=== PATIENT | female | born 1985 | race Caucasian/White ===

== ENCOUNTER 2021-03-19 11:00 | Emergency (ER) | payer OTHER ==
--- OUTSIDE RECORDS SUMMARY | 2021-03-19 11:03 | XMS REPORT | Continuity of Care Document ---
:1985 Author Organization [facility] t Address [address] [place] [address] Care Team Providers Name Role Phone Doctor Unassigned, Name Attending Clinician Unavailable Easton Barnes DO Attending Clinician Tucker PRESCOTT Attending Clinician Problems This patient has no known problems. Allergies, Adverse Reactions, Alerts This patient has no known allergies or adverse reactions. Medications This patient has no known medications. Procedures This patient has no known procedures. Encounters Start End Encounter Admission Attending Care Care Encounter Source Date/Time Date/Time Type Type Clinicians Facility Department ID 2021-03-19 2021-03-19 Refill Doctor [facility] [id number] [id number] 00:00:00 00:00:00 Unassigned, Health [id number] [place] [id number] Professio [phone] nal 0[address] 2021-03-09 2021-03-09 Refill Doctor [facility] [id number] 00:00:00 00:00:00 Unassigned, Health [id number] [place] [id number] Professio [phone] nal 044 [address] 2021-02-08 2021-02-08 Refill Doctor [facility] [id number] 00:00:00 00:00:00 Unassigned, Health [id number] [place] [id number] Professio [phone] nal 044 [address] 2021-01-11 2021-01-11 Refill Doctor [facility] [id number] 00:00:00 00:00:00 Unassigned, [facility] [id number] [place] [id number] Professio [phone] nal 044 [address] 2020-12-18 2020-12-18 Patient Cameron [facility] [id number] 00:00:00 00:00:00 Outreach [facility] [id number] [facility] [id number] PAVILLION [phone] 2020-12-14 2020-12-14 Office Tucker [facility] [id number] 12:51:14 13:06:14 Visit [facility] [id number] [place] [id number] Professio [phone] nal 044 [address] One Results This patient has no known results.
[2021-03-19 13:27] LABS: Urine Blood 2+ (Negative); Urine Glucose Negative (Negative); Urine Protein 2+ (Negative); Urine Specific Gravity >=1.030 (1.005-1.030); Urine pH 5.5 (5.0-7.0)
[2021-03-19 13:50] LABS: Absolute Lymphocytes (CBC) 2.6 K/uL (0.7-4.9); Basophils % 0.5 % (0-1.3); Hematocrit 47.7 % (36.0-45.0); Lymphocytes % 16.2 % (15.3-44.8); MPV 7.5 fL (7.6-11.3); RBC Red Blood Cell Count 5.16 M/uL (3.86-4.86)
[2021-03-19] MEDS ORDERED: NA CHLORIDE 0.9% 1,000 ML ONE (13:50)
[2021-03-19] MEDS ORDERED: ONDANSETRON 4 MG/2 ML VIAL ONE (13:50)
[2021-03-19] MEDS ORDERED: KETOROLAC 30 MG/ML INJ ONE (13:50)
[2021-03-19 14:00] LABS: Urine Specific Gravity/Preg >1.030 (1.005-1.030)
[2021-03-19 14:07] LABS: Albumin 4.4 g/dL (3.4-5.0); Bilirubin Direct 0.2 mg/dL (0-0.2); Bilirubin Total 0.6 mg/dL (0.2-1.0); Potassium 3.7 mmol/L (3.5-5.1); Protein, Total 9.3 g/dL (6.4-8.2)
--- NOTE | 2021-03-19 14:14 | RAD REPORT ---
EXAM DESCRIPTION: CTAbdomen Pelvis W Contrast - 03/19/2021 2:00 pm CLINICAL HISTORY: Abdominal pain. ABD PAIN COMPARISON: No comparisons TECHNIQUE: Biphasic CT imaging of the abdomen and pelvis was performed with 100 ml non-ionic IV cont rast. All CT scans are performed using dose optimization technique as appropriate and may include automated exposure control or mA/KV adjustment according to patient size. FINDINGS: The lung bases are clear.Cholecystectomy. The liver, spleen, pancreas, adrenal glands and kidneys are within normal limits. No bowel obstruction, free air, free fluid or abscess. Appendectomy. No evidence of significant lym phadenopathy. No suspicious bony findings. IMPRESSION: No acute intra-abdominal or pelvic finding.
[2021-03-19] MEDS ORDERED: CIPROFLOXACIN HCL 500 MG TAB ONE (16:04)
[2021-03-19] MEDS ORDERED: metroNIDAZOLE 500 MG TABLET ONE (16:04)
[2021-03-19] MEDS ORDERED: PANTOPRAZOLE 40 MG INJ ONE (16:05)
[2021-03-19] MEDS ORDERED: FENTANYL CITR 100 MCG/2 ML ONE (16:05)
--- NOTE | 2021-03-19 16:10 | ER ---
Nurse's Notes [facility] Name: Abbi Johnson Age: 35 yrs Sex: Female : 1985 Arrival Date: 03/19/2021 Time: 11:11 Bed 23 [facility] MD: Diagnosis: Diarrhea, unspecified Presentation: 03/19 11:22 Chief complaint: Patient states: Diarrhea since last night. + nausea, and belching a ll1 lot with foul taste. +indigestion. No fever. Coronavirus screen: Client denies travel out of the [place] in the last 14 days. At this time, the client does not indicate any symptoms associated with coronavirus-19. Ebola Screen: Patient denies travel to an Ebola-affected area in the 21 days before illness onset. Initial Sepsis Screen: Does the patient meet any 2 criteria? HR > 90 bpm. No. Patient's initial sepsis screen is negative. Does the patient have a suspected source of infection? Yes: Acute abdominal pain. Risk Assessment: Do you want to hurt yourself or someone else? Patient reports no desire to harm self or others. Onset of symptoms was March 18, 2021. 11:22 Method Of Arrival: Ambulatory ll1 11:22 Acuity: KERRI 3 ll1 Historical: - Allergies: 11:26 PENICILLINS; ll1 11:26 Codeine; ll1 - PMHx: 11:26 Chron's; ll1 - PSHx: 11:26 Cholecystectomy; Appendectomy; fallopian tubes removed; ll1 - Immunization history:: Client reports receiving the 1st dose of the Covid vaccine, Flu vaccine is up to date. - Social history:: Smoking status: Patient denies any tobacco usage or history of. Screenin:48 Abuse screen: Denies threats or abuse. Nutritional screening: No deficits noted. vg1 Tuberculosis screening: No symptoms or risk factors identified. Fall Risk No fall in past 12 months (0 pts). No secondary diagnosis (0 pts). IV access (20 points). Ambulatory Aid- None/Bed Rest/Nurse Assist (0 pts). Gait- Normal/Bed Rest/Wheelchair (0 pts) Mental Status- Oriented to own ability (0 pts). Total Maravilla Fall Scale indicates No Risk (0-24 pts). Assessment: 13:30 General: Appears in no apparent distress. uncomfortable, Behavior is calm, cooperative. vg1 Pain: Complains of pain in right upper quadrant Pain currently is 8 out of 10 on a pain scale. Pain began 1 day ago. Noted to be grimacing, guarding, moaning. Neuro: Level of Consciousness is awake, alert, obeys commands, Oriented to person, place, time, situation. Cardiovascular: Patient's skin is warm and dry. Respiratory: Airway is patent Respiratory effort is even, unlabored. GI: Abdomen is round non-distended, Bowel sounds present X 4 quads. Abdomen is tender to palpation in right upper quadrant. : No signs and/or symptoms were reported regarding the genitourinary system. EENT: No signs and/or symptoms were reported regarding the EENT system. Derm: Skin is intact, is healthy with good turgor. Musculoskeletal: Circulation, motion, and sensation intact. 15:55 Reassessment: Patient appears in no apparent distress at this time. No changes from vg1 previously documented assessment. Patient and/or family updated on plan of care and expected duration. Pain level reassessed. Patient is alert, oriented x 3, equal unlabored respirations, skin warm/dry/pink. Vital Signs: 11:22 BP 138 / 87; Pulse 115; Resp 16; Temp 98.2; Pulse Ox 98% on R/A; Weight 104.33 kg; ll1 Height 5 ft. 10 in. (177.80 cm); Pain 6/10; 13:48 BP 109 / 94; Pulse 120; Resp 20; Pulse Ox 97% on R/A; vg1 15:55 BP 121 / 51; Pulse 88; Resp 16; Pulse Ox 100% on R/A; vg1 11:22 Body Mass Index 33.00 (104.33 kg, 177.80 cm) ll1 ED Course: 11:11 Patient arrived in ED. wm 11:25 Triage completed. ll1 11:26 Arm band placed on. ll1 13:12 [facility] Chacon [facility]C [facility]. kb 13:12 Herson Flores MD is Attending Physician. kb 13:15 Christina Steward, IDRIS is Primary Nurse. vg1 13:37 Initial lab(s) drawn, by ne, sent to lab. Inserted saline lock: 20 gauge in right vg1 antecubital area, using aseptic technique. Blood collected. 13:48 Patient has correct armband on for positive identification. Bed in low position. Call vg1 light in reach. Side rails up X 1. 16:31 No provider procedures requiring assistance completed. IV discontinued, intact, vg1 bleeding controlled, No redness/swelling at site. Pressure dressing applied. Administered Medications: 13:40 Drug: NS 0.9% 1000 ml Route: IV; Rate: 1000 ml; Site: right antecubital; vg1 16:35 Follow up: IV Status: Completed infusion; IV Intake: 1000ml vg1 13:41 Drug: Zofran (Ondansetron) 4 mg Route: IVP; Site: right antecubital; vg1 15:38 Follow up: Response: No adverse reaction vg1 13:43 Drug: TORadol - (ketorolac) 15 mg Route: IVP; Site: right antecubital; vg1 15:38 Follow up: Response: No adverse reaction; Pain is unchanged, physician notified vg1 15:48 Drug: Cipro (ciprofloxacin) 500 mg Route: PO; vg1 16:34 Follow up: Response: No adverse reaction vg1 15:49 Drug: Flagyl (metroNIDAZOLE) 500 mg Route: PO; vg1 16:34 Follow up: Response: No adverse reaction vg1 15:50 Drug: ProTONIX (pantoprazole) 40 mg Route: IVP; Site: right antecubital; vg1 16:34 Follow up: Response: No adverse reaction; Pain is decreased vg1 15:52 Drug: fentaNYL (PF) 50 mcg Route: IVP; Site: right antecubital; vg1 16:34 Follow up: Response: No adverse reaction; Pain is decreased vg1 Intake: 16:35 IV: 1000ml; Total: 1000ml. vg1 Outcome: 16:10 Discharge ordered by MD. arreguin 16:31 Discharged to home ambulatory, with family. vg1 16:31 Condition: stable 16:31 Discharge instructions given to patient, Instructed on discharge instructions, follow up and referral plans. medication usage, Demonstrated understanding of instructions, follow-up care, medications, Prescriptions given X 4. 16:33 Patient left the ED. vg1 Signatures: Marce Chacon, RODRICK ESTRADA-Christina Singleton RN RN 1 Desiree Biggs RN RN 1 Aguilar, Юлия wm
--- NOTE | 2021-03-19 16:11 | EDPHYS ---
Physician Documentation [facility] Name: Abbi Johnson Age: 35 yrs Sex: Female : 1985 Arrival Date: 03/19/2021 Time: 11:11 Bed 23 Private MD: ED Physician Herson Flores HPI: 03/19 13:22 This 35 yrs old Female presents to ER via Ambulatory with complaints of kb Diarrhea. 13:22 The patient presents to the emergency department with nausea, diarrhea, abdominal pain, kb of the right upper quadrant and left upper quadrant. Onset: The symptoms/episode began/occurred at 00:00. Possible causes: unknown. The symptoms are aggravated by nothing. The symptoms are alleviated by nothing. Associated signs and symptoms: Pertinent positives: abdominal pain, belching, diarrhea, nausea, Pertinent negatives: fever. Severity of symptoms: At their worst the symptoms were moderate in the emergency department the symptoms are unchanged. The patient has experienced a previous episode. The patient has not recently seen a physician. Pt reports upper abd pain, nausea and diarrhea that started at midnight. States she has had similar symptoms in the past. Reports history of crohns, but not sure if this feels like crohns or not. States she has not been on the medication to control crohns due to insurance change. . Historical: - Allergies: 11:26 PENICILLINS; ll1 11:26 Codeine; ll1 - PMHx: 11:26 Chron's; ll1 - PSHx: 11:26 Cholecystectomy; Appendectomy; fallopian tubes removed; ll1 - Immunization history:: Client reports receiving the 1st dose of the Covid vaccine, Flu vaccine is up to date. - Social history:: Smoking status: Patient denies any tobacco usage or history of. ROS: 13:31 Constitutional: Negative for fever, chills, and weight loss. kb 13:31 Abdomen/GI: Positive for abdominal pain, nausea, diarrhea, Negative for vomiting. 13:31 All other systems are negative. Exam: 13:31 Constitutional: This is a well developed, well nourished patient who is awake, alert, kb and in no acute distress. Head/Face: Normocephalic, atraumatic. ENT: Moist Mucous membranes Cardiovascular: Regular rate and rhythm with a normal S1 and S2. No gallops, murmurs, or rubs. No pulse deficits. Respiratory: Respirations even and unlabored. No increased work of breathing, no retractions or nasal flaring. Skin: Warm, dry with normal turgor. Normal color. MS/ Extremity: Pulses equal, no cyanosis. Neurovascular intact. Full, normal range of motion. Neuro: Awake and alert, GCS 15, oriented to person, place, time, and situation. Moves all extremities. Normal gait. Psych: Awake, alert, with orientation to person, place and time. Behavior, mood, and affect are within normal limits. 13:31 Abdomen/GI: Inspection: abdomen appears normal, Bowel sounds: normal, in all quadrants, Palpation: soft, in all quadrants, nontender, in the left upper quadrant, right lower quadrant and left lower quadrant, mild abdominal tenderness, in the right upper quadrant. Vital Signs: 11:22 BP 138 / 87; Pulse 115; Resp 16; Temp 98.2; Pulse Ox 98% on R/A; Weight 104.33 kg; ll1 Height 5 ft. 10 in. (177.80 cm); Pain 6/10; 13:48 BP 109 / 94; Pulse 120; Resp 20; Pulse Ox 97% on R/A; vg1 15:55 BP 121 / 51; Pulse 88; Resp 16; Pulse Ox 100% on R/A; vg1 11:22 Body Mass Index 33.00 (104.33 kg, 177.80 cm) ll1 MDM: 13:12 Patient medically screened. 13:31 Data reviewed: vital signs, nurses notes. Data interpreted: Pulse oximetry: on room air kb is 98 %. Interpretation: normal. 15:39 Counseling: I had a detailed discussion with the patient and/or guardian regarding: the kb historical points, exam findings, and any diagnostic results supporting the discharge/admit diagnosis, lab results, radiology results, the need for outpatient follow up, a family practitioner, to return to the emergency department if symptoms worsen or persist or if there are any questions or concerns that arise at home. 03/19 13:16 Order name: Basic Metabolic Panel 03/19 13:16 Order name: CBC with Diff 03/19 13:16 Order name: Hepatic Function 03/19 13:16 Order name: Lipase 03/19 13:28 Order name: Urine Dipstick-Ancillary; Complete Time: 13:31 EDMS 03/19 13:29 Order name: Urine --Ancillary (enter results) mt 03/19 13:16 Order name: CT Abd/Pelvis - IV Contrast Only kb 03/19 13:52 Order name: CBC with Automated Diff; Complete Time: 13:55 EDMS 03/19 14:00 Order name: Urine --Ancillary; Complete Time: 14:01 EDMS 03/19 14:12 Order name: CREATININE WHOLE BLOOD; Complete Time: 14:14 EDMS 03/19 14:16 Order name: CT; Complete Time: 14:16 EDMS 03/19 14:24 Order name: Basic Metabolic Panel; Complete Time: 14:25 EDMS 03/19 14:24 Order name: Liver (Hepatic) Function; Complete Time: 14:25 EDMS 03/19 14:24 Order name: Lipase; Complete Time: 14:25 EDMS 03/19 13:16 Order name: IV Saline Lock; Complete Time: 13:44 kb 03/19 13:16 Order name: Labs collected and sent; Complete Time: 13:44 kb 03/19 13:16 Order name: Urine Test (obtain specimen); Complete Time: 13:29 kb 03/19 13:16 Order name: Urine Dipstick-Ancillary (obtain specimen); Complete Time: 13:29 kb Administered Medications: 13:40 Drug: NS 0.9% 1000 ml Route: IV; Rate: 1000 ml; Site: right antecubital; vg1 16:35 Follow up: IV Status: Completed infusion; IV Intake: 1000ml vg1 13:41 Drug: Zofran (Ondansetron) 4 mg Route: IVP; Site: right antecubital; vg1 15:38 Follow up: Response: No adverse reaction vg1 13:43 Drug: TORadol - (ketorolac) 15 mg Route: IVP; Site: right antecubital; vg1 15:38 Follow up: Response: No adverse reaction; Pain is unchanged, physician notified vg1 15:48 Drug: Cipro (ciprofloxacin) 500 mg Route: PO; vg1 16:34 Follow up: Response: No adverse reaction vg1 15:49 Drug: Flagyl (metroNIDAZOLE) 500 mg Route: PO; vg1 16:34 Follow up: Response: No adverse reaction vg1 15:50 Drug: ProTONIX (pantoprazole) 40 mg Route: IVP; Site: right antecubital; vg1 16:34 Follow up: Response: No adverse reaction; Pain is decreased vg1 15:52 Drug: fentaNYL (PF) 50 mcg Route: IVP; Site: right antecubital; vg1 16:34 Follow up: Response: No adverse reaction; Pain is decreased vg1 Disposition: 03/19/21 16:10 Discharged to Home. Impression: Diarrhea, unspecified. - Condition is Stable. - Discharge Instructions: Food Choices to Help Relieve Diarrhea, Adult, Crohn Disease. - Prescriptions for Bentyl 20 mg Oral Tablet - take 1 tablet by ORAL route every 6 hours As needed; 20 tablet. Flagyl 500 mg Oral Tablet - take 1 tablet by ORAL route every 8 hours for 10 days; 30 tablet. Zofran 4 mg Oral Tablet - take 1 tablet by ORAL route every 6 hours As needed; 20 tablet. Cipro 500 mg Oral Tablet - take 1 tablet by ORAL route every 12 hours for 10 days; 20 tablet. - Medication Reconciliation Form, Thank You Letter, Antibiotic Education, Prescription Opioid Use, Work release form form. - Follow up: Emergency Department; When: As needed; Reason: Worsening of condition. Follow up: Private Physician; When: 2 - 3 days; Reason: Recheck today's complaints, Continuance of care, Re-evaluation by your physician. Signatures: Dispatcher [employer] Marce Chacon, NATALIE-C [employer]-Christina Singleton, RN RN vg1 Desiree Biggs RN RN ll1 Corrections: (The following items were deleted from the chart) 13:33 13:31 Abdomen/GI: Inspection: abdomen appears normal, Bowel sounds: normal, in all kb quadrants, Palpation: soft, in all quadrants, mild abdominal tenderness, in the right upper quadrant, kb 16:33 16:10 03/19/2021 16:10 Discharged to Home. Impression: Diarrhea, unspecified. Condition vg1 is Stable. Forms are Medication Reconciliation Form, Thank You Letter, Antibiotic Education, Prescription Opioid Use. Follow up: Emergency Department; When: As needed; Reason: Worsening of condition. Follow up: Private Physician; When: 2 - 3 days; Reason: Recheck today's complaints, Continuance of care, Re-evaluation by your physician. kb
[2021-03-19 16:40] VITALS: TEMP 98.2
[2021-03-19 16:44] VITALS: BP 121/51; O2SAT 100
== END 2021-03-19 16:33 | disposition home or self-care (01) ==
LOC: ER 11:00
DX: R19.7 Diarrhea, unspecified (principal); K50.90 Crohn's disease, unspecified, without complications
CPT/HCPCS: 96361; 85025; 80048; 36415; 81025; 82565; 80076; 81003; 83690; 74177; 96375; 96374; 99284; Q9967; C9113; J3010; J7030; J2405

== ENCOUNTER 2024-03-13 17:29 | Observation (INO) | payer BC ==
--- OUTSIDE RECORDS SUMMARY | 2024-03-13 17:33 | XMS REPORT | Continuity of Care Document ---
Author Name Unknown Address [address] [facility] [address] [place] [address] [facility] thconnect Address [address] [facility] [place] [address] Care Team Providers Care Nutrition Services Manager Name Role Phone Georgina Serrano MD Primary Care Physician [phone] Georgina Serrano MD Attending Clinician [phone] GEORGINA SERRANO Attending Clinician Unavailable Doctor Unassigned, [place] Attending Clinician U navailmonroe Smith, Ang - Db Attending Clinician Unavailable Nayely DONALDSON, Brenda L Attending Clinician UnavailTata Basilio LVN Attending Clinician Stormy Cui MD Attending Clinician [phone] Isma Dolan Attending Clinician [phone] STORMY SPENCER Attending Clinician UnavailCira Deal RN Attending Clinician UnavailJuliet Voss MA Attending Clinician Unavailmansi Marroquin MD, Reece Ny Attending Clinician [phone] Jefferson Barnes DO Attending Clinician [phone] Alex Howard Attending Clinician [phone] Sagar Crespo DO Attending Clinician [phone] Shelia Gamboa Attending Clinician [phone] SHELIA DENIS Attending Clinician Unavailable MARJ DOMÍNGUEZ Attending Clinician Unavailable Marj Domínguez MD Attending Clinician Unavailable Lab, Lkj Pedi Attending Clinician Unavailable SHELIA DENIS Admitting Clinician Unavailable Payers Payer Name Policy Type Policy Number Effective Date Expirati on Date Source [facility] [id number] 2020 00:00:00 Problems Condition Name Condition Details Condition Category Status Onset Date Resolution Date Last Treatment Date Treating Clinician Comments Source Hypothyroi dism Hypothyroi dism Disease Active 8-08 00:00: 00 [facility] Other chronic pain Other chronic pain Disease Active 8-03 00:00: 00 [facility] Abnormal thyroid function test Abnormal thyroid function test Disease Active 04-23 00:00: 00 [facility] Abnormal uterine and vaginal bleeding, unspecifie d Abnormal uterine and vaginal bleeding, unspecifie d Disease Active 04-23 00:00: 00 [facility] Acne vulgaris Acne vulgaris Disease Active 04-23 00:00: 00 [facility] Obesity (BMI 30-39.9) Obesity (BMI 30-39.9) Disease Active 2019-09 0-16 00:00: 00 [facility] Menorrhagi a with regular cycle Menorrhagi a with regular cycle Disease Active 2019-09 0-14 00:00: 00 [facility] Tobacco use disorder Tobacco use disorder Disease Active 2019-09 0-14 00:00: 00 [facility] Decreased libido Decreased libido Disease Active 2019-09 0-14 00:00: 00 [facility] Fatigue, unspecifie d type Fatigue, unspecifie d type Disease Active 2019-09 0-14 00:00: 00 [facility] Attention deficit disorder (ADD) without hyperactiv ity Attention deficit disorder (ADD) without hyperactiv ity Disease Active 5-28 00:00: 00 [facility] Crohn disease Crohn disease Disease Active 2011-09 0- 00:00: 00 [facility] Allergies, Adverse Reactions, Alerts Allergy Name Allergy Type Status Severity Reaction(s) Onset Date Inactive Date Treating Clinician Comments Source PENICILL INS Drug Class Active Unknown-Cmnt 8- 00:00: 00 [facility] Penicill ins Propensi ty to adverse reaction s Active Unknown - See comments 05-06 00:00: 00 [facility] CODEINE DRUG INGREDI Active N/V 2019-09 00:00: 00 [facility] Codeine Propensi ty to adverse reaction s Active Nausea and/or Vomiting 2019-09 00:00: 00 [facility] Penicill in Propensi ty to adverse reaction s Active Hives 0 5- 00:00: 00 [facility] PENICILL IN DRUG INGREDI Active Hives 0 - 00:00: 00 [facility] Social History Social Habit Start Date Stop Date Quantity Comments Source Gender identity [facility] of tobacco use Cigarette Smoker [facility] Alcoholic beverage intake 2024-03-04 00:00:00 2024-03-04 00:00:00 Current drinker of alcohol (finding) [facility] Tobacco use and exposure 2024-03-04 00:00:00 2024-03-04 00:00:00 Smokeless tobacco non-user [facility] Alcohol intake 2023-10-21 00:00:00 2023-10-21 00:00:00 Current drinker of alcohol (finding) [facility] History of Social function 2023-08-11 00:00:00 2023-08-11 00:00:00 [facility] Exposure to SARS-CoV-2 (event) 2023-01-25 00:00:00 2023-02-04 07:28:00 Not sure [facility] Tobacco Comment 2022-09-26 00:00:00 2022-09-26 00:00:00 smokes 1 pack per week [facility] Alcohol Comment 2020-07-12 00:00:00 2020-07-12 00:00:00 socially on the weekends [facility] History SDOH Alcohol Frequency 2020-07-12 00:00:00 2020-07-12 00:00:00 99 [facility] History SDOH Alcohol Std Drinks 2020-07-12 00:00:00 2020-07-12 00:00:00 99 [facility] History SDOH Alcohol Binge 2020-07-12 00:00:00 2020-07-12 00:00:00 99 [facility] Sex assigned at 1985 00:00:00 1985 00:00:00 [facility] Smoking Status Start Date Stop Date Source Ex-smoker 2024-03-04 00:00:00 2024-03-04 00:00:00 [facility] Occasional tobacco smoker 2020-07-12 00:00:00 [facility] Medications Ordered Medication Name Filled Medication Name Start Date Stop Date Current Medication? Ordering Clinician Indication Dosage Frequency Signature (SIG) Comments Components Source lisdexamfet amine (VYVANSE) 50 mg capsule 03-04 00:00: 00 Yes [id number] 50mg Take 1 capsule by mouth every morning. [facility] lisdexamfet amine (VYVANSE) 50 mg capsule 01-27 00:00: 00 03-04 00:00 :00 No [id number] 50mg Take 1 capsule by mouth every morning. [facility] HYDROcodone -acetaminop hen 10-325 mg tablet 01-19 00:00: 00 Yes [id number] 1{tbl} Take 1 tablet by mouth every 6 (six) hours as needed for Pain (scale 7-10). Indication s: acute pain [facility] lisdexamfet amine (VYVANSE) 50 mg capsule 01-19 00:00: 00 01-27 00:00 :00 No [id number] 50mg Take 1 capsule by mouth every morning. [facility] HYDROcodone -acetaminop hen 10-325 mg tablet 12-21 00:00: 00 01-19 00:00 :00 No [id number] 1{tbl} Take 1 tablet by mouth every 6 (six) hours as needed for Pain (scale 7-10). Indication s: acute pain [facility] lisdexamfet amine (VYVANSE) 50 mg capsule 12-21 00:00: 00 01-19 00:00 :00 No [id number] 50mg Take 1 capsule by mouth every morning. [facility] lisdexamfet amine (VYVANSE) 50 mg capsule 11-24 00:00: 00 Yes [id number] 50mg Take 1 capsule by mouth every morning. [facility] lisdexamfet amine 40 mg capsule 10-27 00:00: 00 03-04 00:00 :00 No [id number] 40mg Take 1 capsule by mouth every morning. [facility] HYDROcodone -acetaminop hen 10-325 mg tablet 10-22 00:00: 00 Yes [id number] 1{tbl} Take 1 tablet by mouth every 6 (six) hours as needed for Pain (scale 7-10). Indication s: acute pain [facility] lisdexamfet amine (VYVANSE) 50 mg capsule 10-22 00:00: 00 11-24 00:00 :00 No [id number] 50mg Take 1 capsule by mouth every morning. [facility] HYDROcodone -acetaminop hen 10-325 mg tablet 2022-09 00:00: 00 Yes [id number] 1{tbl} Take 1 tablet by mouth every 6 (six) hours as needed for Pain (scale 7-10). Indication s: acute pain [facility] lisdexamfet amine (VYVANSE) 50 mg capsule 2022-09 00:00: 00 Yes [id number] 50mg Take 1 capsule by mouth every morning. [facility] HYDROcodone -acetaminop hen 10-325 mg tablet 2022-09 00:00: 00 Yes [id number] 1{tbl} Take 1 tablet by mouth every 6 (six) hours as needed for Pain (scale 7-10). Indication s: acute pain [facility] lisdexamfet amine (VYVANSE) 50 mg capsule 2022-09 2 00:00: 00 Yes [id number] 50mg Take 1 capsule by mouth every morning. [facility] lisdexamfet amine (VYVANSE) 50 mg capsule 2022-09 1-02 00:00: 00 08-29 00:00 :00 No [id number] 50mg Take 1 capsule by mouth every morning. [facility] HYDROcodone -acetaminop hen 10-325 mg tablet 2022-09 0-03 00:00: 00 08-29 00:00 :00 No [id number] 1{tbl} Take 1 tablet by mouth every 6 (six) hours as needed for Pain (scale 7-10). Indication s: acute pain [facility] lisdexamfet amine (VYVANSE) 50 mg capsule 2022-09 0-03 00:00: 00 07-31 00:00 :00 No [id number] 50mg Take 1 capsule by mouth every morning. [facility] lisdexamfet amine (VYVANSE) 50 mg capsule 9- 00:00: 00 Yes [id number] 50mg Take 1 capsule by mouth every morning. [facility] HYDROcodone -acetaminop hen 10-325 mg tablet 9- 00:00: 00 Yes [id number] 1{tbl} Take 1 tablet by mouth every 6 (six) hours as needed for Pain (scale 7-10). Indication s: acute pain [facility] lisdexamfet amine (VYVANSE) 50 mg capsule 8-07 00:00: 00 06-04 00:00 :00 No [id number] 50mg Take 1 capsule by mouth every morning. [facility] HYDROcodone -acetaminop hen 10-325 mg tablet 8-07 00:00: 00 06-04 00:00 :00 No 4647 1{tbl} Take 1 tablet by mouth every 6 (six) hours as needed for Pain (scale 7-10). Indication s: acute pain [facility] lisdexamfet amine (VYVANSE) 50 mg capsule 7- 00:00: 00 Yes [id number] 50mg Take 1 capsule by mouth every morning. [facility] HYDROcodone -acetaminop hen 10-325 mg tablet 2023-0 7-11 00:00: 00 Yes [id number] 1{tbl} Take 1 tablet by mouth every 6 (six) hours as needed for Pain (scale 7-10). Indication s: acute pain [facility] lisdexamfet amine (VYVANSE) 50 mg capsule 6-12 00:00: 00 Yes [id number] 50mg Take 1 capsule by mouth every morning. [facility] HYDROcodone -acetaminop hen 10-325 mg tablet 6-12 00:00: 00 Yes [id number] 1{tbl} Take 1 tablet by mouth every 6 (six) hours as needed for Pain (scale 7-10). Indication s: acute pain [facility] lisdexamfet amine (VYVANSE) 50 mg capsule 5-17 00:00: 00 03-10 00:00 :00 No [id number] 50mg Take 1 capsule by mouth every morning. [facility] HYDROcodone -acetaminop hen 10-325 mg tablet 5-17 00:00: 00 03-10 00:00 :00 No 4647 1{tbl} Take 1 tablet by mouth every 6 (six) hours as needed for Pain (scale 7-10). Indication s: acute pain [facility] lisdexamfet amine (VYVANSE) 50 mg capsule 0 4-20 00:00: 00 02-12 00:00 :00 No [id number] 50mg Take 1 capsule by mouth every morning. [facility] HYDROcodone -acetaminop hen 10-325 mg tablet 0 4-20 00:00: 00 02-12 00:00 :00 No 4647 1{tbl} Take 1 tablet by mouth every 6 (six) hours as needed for Pain (scale 7-10). Indication s: acute pain [facility] lisdexamfet amine (VYVANSE) 50 mg capsule 0 3-22 00:00: 00 01-15 00:00 :00 No [id number] 50mg Take 1 capsule by mouth every morning. [facility] HYDROcodone -acetaminop hen 10-325 mg tablet 3-22 00:00: 00 01-15 00:00 :00 No 4647 1{tbl} Take 1 tablet by mouth every 6 (six) hours as needed for Pain (scale 7-10). Indication s: acute pain [facility] lisdexamfet amine (VYVANSE) 50 mg capsule 2-20 00:00: 00 12-17 00:00 :00 No [id number] 50mg Take 1 capsule [facility] mouth every morning[facility]-325 mg tablet 2- 00:00: 00 12-17 00:00 :00 No 4647 1{tbl} Take 1 tablet by mouth every 6 (six) hours as needed for Pain (scale 7-10). Indication s: acute pain [facility] lisdexamfet amine (VYVANSE) 50 mg capsule 1- 00:00: 00 11-15 00:00 :00 No [id number] 50mg Take 1 capsule by mouth every morning. [facility] HYDROcodone -acetaminop hen 10-325 mg tablet 1- 00:00: 00 11-15 00:00 :00 No 4647 1{tbl} Take 1 tablet by mouth every 6 (six) hours as needed for Pain (scale 7-10). Indication s: acute pain [facility] lisdexamfet amine (VYVANSE) 50 mg capsule 2021-09 2- 00:00: 00 10-19 00:00 :00 No [id number] 50mg Take 1 capsule by mouth every morning. [facility] HYDROcodone -acetaminop hen 10-325 mg tablet 2021-09 2- 00:00: 00 10-19 00:00 :00 No 4647 1{tbl} Take 1 tablet by mouth every 6 (six) hours as needed for Pain (scale 7-10). Indication s: acute pain [facility] esomeprazol e 40 mg capsule 2021-09 11-20 00:00: 00 Yes TAKE ONE (1) CAPSULE(S) BY MOUTH IN THE MORNING. [facility] mesalamine 500 mg CR capsule 2021-09 00:00: 00 Yes TAKE FOUR (4) CAPSULE(S) BY MOUTH TWICE A DAY. [facility] famotidine 20 mg tablet 2021-09 00:00: 00 Yes 20mg Take 1 tablet by mouth at bedtime. [facility] tretinoin 0.025 % gel 2021-09 00:00: 00 Yes Apply to affected area(s) daily. [facility] Hyoscyamine Sulfate 0.125 mg TbDL 2021-09 00:00: 00 Yes DISSOLVE ONE (1) TO TWO (2) TABLET(S) BY MOUTH EVERY FOUR TO SIX HOURS NEEDED. [facility] minocycline 100 mg capsule 2021-09 00:00: 00 07-31 00:00 :00 No TAKE ONE (1) CAPSULE(S) BY MOUTH TWICE A DAY. [facility] lisdexamfet amine (VYVANSE) 50 mg capsule 2021-09 00:00: 00 09-19 00:00 :00 No [id number] 50mg Take 1 capsule by mouth every morning. [facility] HYDROcodone -acetaminop hen 10-325 mg tablet 2021-09 00:00: 00 09-19 00:00 :00 No 4647 1{tbl} Take 1 tablet by mouth every 6 (six) hours as needed for Pain (scale 7-10). Indication s: acute pain [facility] metoclopram fannie HCl 10 mg tablet 2021-09 0-28 00:00: 00 07-31 00:00 :00 No TAKE FOUR (4) TABLET(S) BY MOUTH DIRECTED PER COLONOSCOP Y PREP PACKET. [facility] lisdexamfet amine (VYVANSE) 50 mg capsule 2021-09 0-27 00:00: 00 Yes [id number] 50mg Take 1 capsule by mouth every morning. [facility] HYDROcodone -acetaminop hen 10-325 mg tablet 2021-09 0 00:00: 00 Yes 4647 1{tbl} Take 1 tablet by mouth every 6 (six) hours as needed for Pain (scale 7-10). Indication s: acute pain [facility] lisdexamfet amine (VYVANSE) 50 mg capsule 06-26 00:00: 00 Yes [id number] 50mg Take 1 capsule by mouth every morning. [facility] HYDROcodone -acetaminop hen 10-325 mg tablet 06-26 00:00: 00 Yes 4647 1{tbl} Take 1 tablet by mouth every 6 (six) hours as needed for Pain (scale 7-10). Indication s: acute pain [facility] lisdexamfet amine (VYVANSE) 50 mg capsule 05-30 00:00: 00 Yes [id number] 50mg Take 1 capsule by mouth every morning. [facility] HYDROcodone -acetaminop hen 10-325 mg tablet 05-30 00:00: 00 Yes [id number] 1{tbl} Take 1 tablet by mouth every 6 (six) hours as needed for Pain (scale 7-10). Indication s: acute pain [facility] lisdexamfet amine (VYVANSE) 50 mg capsule 05-01 00:00: 00 05-30 00:00 :00 No [id number] 50mg Take 1 capsule by mouth every morning. [facility] HYDROcodone -acetaminop hen 10-325 mg tablet 05-01 00:00: 00 05-30 00:00 :00 No 4647 1{tbl} Take 1 tablet by mouth every 6 (six) hours as needed for Pain (scale 7-10). Indication s: acute pain [facility] lisdexamfet amine (VYVANSE) 50 mg capsule 04-08 00:00: 00 05-01 00:00 :00 No [id number] 50mg Take 1 capsule by mouth every morning. [facility] HYDROcodone -acetaminop hen 10-325 mg tablet 04-08 00:00: 00 05-01 00:00 :00 No 4647 1{tbl} Take 1 tablet by mouth every 6 (six) hours as needed for Pain (scale 7-10). Indication s: acute pain [facility] HYDROcodone -acetaminop hen 10-325 mg tablet 2019-09 00:00: 00 10-20 00:00 :00 No 4647 1{tbl} Take 1 tablet by mouth every 6 (six) hours as needed for Pain (scale 7-10) for up to 7 days. Indication s: acute pain [facility] benzonatate 100 mg capsule 2019-09 00:00: 00 12-14 00:00 :00 No [id number] 100mg Take 1 capsule by mouth 3 (three) times daily as needed for Cough. [facility] chlorphenir amine 4 mg tablet 2019-09 00:00: 00 12-14 00:00 :00 No [id number] 4mg Take 1 tablet by mouth every 6 (six) hours as needed for Allergies or Runny nose. [facility] multivitami n capsule 2019-09 00:00: 00 12-14 00:00 :00 No [id number] 1{capsu le} Take 1 capsule by mouth daily. [facility] calcium-mag nesium-zinc 333-133-8.3 mg Tab 2019-09 00:00: 00 12-14 00:00 :00 No [id number] Take as directed for daily dose. [facility] ketorolac 10 mg tablet 2019-09 00:00: 00 12-14 00:00 :00 No [id number] 10mg Take 1 tablet by mouth every 6 (six) hours as needed for Pain (scale 7-10). [facility] ondansetron 4 mg disintegrat ing tablet 2019-09 00:00: 00 12-14 00:00 :00 No [id number] 4mg Take 1 tablet by mouth every 8 (eight) hours as needed for Nausea and Vomiting (N/V). [facility] methylpheni date HCl 54 mg 24 hr tablet 2019-09 00:00: 00 10-17 00:00 :00 No [id number] 54mg Take 1 tablet by mouth every morning. [facility] omeprazole 40 mg capsule 2019-09 00:00: 00 10-17 00:00 :00 No [id number] 40mg Take 1 capsule by mouth daily. [facility] traMADoL 50 mg tablet 2019-09 00:00: 07-31 00:00 :00 No [id number] 50mg Take 1 tablet by mouth every 8 (eight) hours as needed for Pain (scale 7-10). Indication s: acute pain [facility] ciprofloxac in HCl 500 mg tablet 2019-09 00:00: 00 12-14 00:00 :00 No [id number] 500mg Take 1 tablet by mouth 2 (two) times daily. [facility] hyoscyamine (LEVSIN) 0.125 mg tablet 2019-09 00:00: 00 09-26 00:00 :00 No [id number] 9108 .125mg Take 1 tablet by mouth 4 (four) times daily as needed for Pain (scale 1-3) or Pain (scale 4-6). [facility] buPROPion XL 300 mg 24 hr tablet 2019-09 0-14 00:00: 00 08-21 00:00 :00 No [id number] 300mg Take 1 tablet by mouth daily. [facility] Immunizations Ordered Immunization Name Filled Immunization Name Date Status Comments Source Influenza Virus Vaccine 2020-07-13 00:00:00 Completed [facility] Influenza Virus Vaccine 2020-07-13 00:00:00 Completed [facility] Influenza Virus Vaccine 2020-07-13 00:00:00 Completed [facility] Influenza Virus Vaccine 2020-07-13 00:00:00 Completed [facility] Influenza Virus Vaccine 2020-07-13 00:00:00 Completed [facility] Influenza Virus Vaccine 2020-07-13 00:00:00 Completed [facility] Influenza Virus Vaccine 2020-07-13 00:00:00 Completed [facility] Influenza Virus Vaccine 2020-07-13 00:00:00 Completed [facility] Influenza Virus Vaccine 2020-07-13 00:00:00 Completed [facility] Influenza Virus Vaccine 2020-07-13 00:00:00 Completed [facility] Influenza Virus Vaccine 2020-07-13 00:00:00 Completed [facility] Influenza Virus Vaccine 2020-07-13 00:00:00 Completed [facility] Influenza Virus Vaccine 2020-07-13 00:00:00 Completed [facility] Influenza Virus Vaccine 2020-07-13 00:00:00 Completed [facility] Influenza Virus Vaccine 2020-07-13 00:00:00 Completed [facility] Influenza Virus Vaccine 2020-07-13 00:00:00 Completed [facility] Influenza Virus Vaccine 2020-07-13 00:00:00 Completed [facility] Influenza Virus Vaccine 2020-07-13 00:00:00 Completed [facility] Influenza Virus Vaccine 2020-07-13 00:00:00 Completed [facility] Influenza Virus Vaccine 2020-07-13 00:00:00 Completed [facility] Influenza Virus Vaccine 2020-07-13 00:00:00 Completed [facility] Influenza Virus Vaccine 2020-07-13 00:00:00 Completed [facility] Influenza Virus Vaccine 2020-07-13 00:00:00 Completed [facility] Influenza Virus Vaccine 2020-07-13 00:00:00 Completed [facility] Influenza Virus Vaccine 2020-07-13 00:00:00 Completed [facility] Influenza Virus Vaccine 2020-07-13 00:00:00 Completed [facility] Influenza Virus Vaccine 2020-07-13 00:00:00 Completed [facility] Influenza Virus Vaccine Unknown Completed [facility] Influenza Virus Vaccine Unknown Completed [facility] Influenza Virus Vaccine Unknown Completed [facility] Influenza Virus Vaccine Unknown Completed [facility] Influenza Virus Vaccine Unknown Completed [facility] Influenza Virus Vaccine Unknown Completed [facility] Influenza Virus Vaccine Unknown Completed [facility] Influenza Virus Vaccine Unknown Completed [facility] Influenza Virus Vaccine Unknown Completed [facility] Influenza Virus Vaccine Unknown Completed [facility] Influenza Virus Vaccine Unknown Completed [facility] Influenza Virus Vaccine Unknown Completed [facility] Influenza Virus Vaccine Unknown Completed [facility] Influenza Virus Vaccine Unknown Completed [facility] Influenza Virus Vaccine Unknown Completed [facility] Influenza Virus Vaccine Unknown Completed [facility] Influenza Virus Vaccine Unknown Completed [facility] Influenza Virus Vaccine Unknown Completed [facility] Influenza Virus Vaccine Unknown Completed [facility] Influenza Virus Vaccine Unknown Completed [facility] Influenza Virus Vaccine Unknown Completed [facility] Influenza Virus Vaccine Unknown Completed [facility] Influenza Virus Vaccine Unknown Completed [facility] Influenza Virus Vaccine Unknown Completed [facility] Influenza Virus Vaccine Unknown Completed [facility] Influenza Virus Vaccine Unknown Completed [facility] Influenza Virus Vaccine Unknown Completed [facility] Influenza Virus Vaccine Unknown Completed [facility] Influenza Virus Vaccine Unknown Completed [facility] Influenza Virus Vaccine Unknown Completed [facility] Vital Signs Vital Name Observation Time Observation Value Comments S ource Systolic blood pressure 2024-03-04 14:36:00 123 mm[Hg] [facility] Diastolic blood pressure 2024-03-04 14:36:00 67 mm[Hg] [facility] Heart rate 2024-03-04 14:36:00 108 /min [facility] Body height 2024-03-04 14:36:00 177.8 cm [facility] Body weight 2024-03-04 14:36:00 84.46 kg [facility] BMI 2024-03-04 14:36:00 26.72 kg/m2 [facility] Oxygen saturation in Arterial blood by Pulse oximetry 2024-03-04 14:36:00 99 /min [facility] Systolic blood pressure 2023-08-11 13:22:00 123 mm[Hg] [facility] Diastolic blood pressure 2023-08-11 13:22:00 69 mm[Hg] [facility] Heart rate 2023-08-11 13:22:00 89 /min [facility] Respiratory rate 2023-08-11 13:22:00 18 /min [facility] Body height 2023-08-11 13:22:00 177.8 cm [facility] Body weight 2023-08-11 13:22:00 92.579 kg [facility] BMI 2023-08-11 13:22:00 29.29 kg/m2 [facility] Oxygen saturation in Arterial blood by Pulse oximetry 2023-08-11 13:22:00 100 /min [facility] Systolic blood pressure 2023-02-04 13:17:00 127 mm[Hg] [facility] Diastolic blood pressure 2023-02-04 13:17:00 72 mm[Hg] [facility] Heart rate 2023-02-04 13:17:00 94 /min Unive [facility] Body temperature 2023-02-04 13:17:00 37.28 Ricarda [facility] Respiratory rate 2023-02-04 13:17:00 16 /min [facility] Body height 2023-02-04 13:17:00 177.8 cm [facility] Body weight 2023-02-04 13:17:00 96.798 kg Univ [facility] BMI 2023-02-04 13:17:00 30.62 kg/m2 [facility] Oxygen saturation in Arterial blood by Pulse oximetry 2023-02-04 13:17:00 100 /min [facility] Systolic blood pressure 2023-01-21 13:07:00 138 mm[Hg] [facility] Diastolic blood pressure 2023-01-21 13:07:00 84 mm[Hg] [facility] Heart rate 2023-01-21 13:07:00 116 /min [facility] Body height 2023-01-21 13:07:00 177.8 cm [facility] Body weight 2023-01-21 13:07:00 96.163 kg Univ [facility] BMI 2023-01-21 13:07:00 30.42 kg/m2 [facility] Oxygen saturation in Arterial blood by Pulse oximetry 2023-01-21 13:07:00 100 /min [facility] Systolic blood pressure 2022-09-26 18:21:00 132 mm[Hg] [facility] Diastolic blood pressure 2022-09-26 18:21:00 82 mm[Hg] [facility] Heart rate 2022-09-26 18:21:00 87 /min Unive [facility] Body height 2022-09-26 18:21:00 177.8 cm [facility] Body weight 2022-09-26 18:21:00 96.979 kg [facility] BMI 2022-09-26 18:21:00 30.68 kg/m2 [facility] Oxygen saturation in Arterial blood by Pulse oximetry 2022-09-26 18:21:00 100 /min [facility] Systolic blood pressure 2022-05-01 12:08:00 104 mm[Hg] [facility] Diastolic blood pressure 2022-05-01 12:08:00 68 mm[Hg] [facility] Heart rate 2022-05-01 12:08:00 80 /min Unive [facility] Body weight 2022-05-01 12:08:00 96.026 kg [facility] BMI 2022-05-01 12:08:00 30.38 kg/m2 [facility] Procedures Procedure Date / Time Performed Performing Clinicia n Source [facility] PATIENT FINANCIAL POLICY 2023-01-21 13:07:05 Doctor Unassigned, Satsuma [facility] CONSENT/REFUSAL FOR DIAGNOSIS AND TREATMENT 2022-05-01 12:16:25 Doctor Unassigned, Satsuma [facility] Encounters Start Date/Time End Date/Time Encounter Type Admission Type Attending Clinicians Care Facility Care Department Encounter ID Source 2021-07-28 12:39:54 Emergency [facility] [id number] [facility] 2024-03-04 09:45:00 2024-03-04 10:00:00 Office Visit Georgina Serrano [facility]CO[facility] 1.2.840.114 350.1.13.10 4.2.7.2.686 [id number] [id number] [facility] 2024-03-04 09:45:00 2024-03-04 09:45:00 Outpatient R GEORGINA SERRANO [facility] [id number] [facility] 2024-03-01 00:00:00 2024-03-01 15:58:50 Georgina Brooks [facility] 1.2840.114 350.1.13.10 4.2.7.2.686 [id number] 044 [id number] [facility] 2024-01-28 00:00:00 2024-01-28 00:00:00 Patient Secure Msg Doctor Unassigned, Satsuma [facility] 1.2840.114 350.1.13.10 4.2.7.2.686 [id number] 044 [id number] [facility] 2024-01-20 00:00:00 2024-01-20 00:00:00 Adrianne Serrano Georgina [facility] 1.2840.114 350.1.13.10 4.2.7.2.686 [id number] 044 [id number] [facility] 2023-11-24 00:00:00 2023-11-24 00:00:00 [facility] 1.2840.114 350.1.13.10 4.2.7.2.686 [id number] 044 [id number] [facility] 2023-10-26 00:00:00 2023-10-26 00:00:00 Patient Secure Msg Doctor Unassigned, Satsuma [facility] 1.2840.114 350.1.13.10 4.2.7.2.686 [id number] 044 [id number] [facility] 2023-10-22 00:00:00 2023-10-22 00:00:00 [facility] 1.2840.114 350.1.13.10 4.2.7.2.686 [id number] 044 [id number] [facility] 2023-09-24 00:00:00 2023-09-24 00:00:00 Refill [facility] 1.2840.114 350.1.13.10 4.2.7.2.686 [id number] 044 [id number] [facility] 2023-08-29 00:00:00 2023-08-29 00:00:00 Refill Tucker [facility] MAYCO?[facility] 1.2840.114 350.1.13.10 4.2.7.2.686 [id number] 044 [id number] [facility] 2023-08-11 08:30:00 2023-08-11 08:45:00 Account Installer Visit Lab, Heriberto Taylor Tucker [facility] MAYCO?[facility] 1.2840.114 350.1.13.10 4.2.7.2.686 [id number] [facility] 2023-08-11 07:30:00 2023-08-11 08:00:00 Office Visit Tucker [facility] MAYCO?[facility] 1.2840.114 350.1.13.10 4.2.7.2.686 [id number] 044 [id number] [facility] 2023-08-11 07:30:00 2023-08-11 07:51:33 [facility] [id number] [facility] 2023-08-04 00:00:00 2023-08-04 00:00:00 Pre Visit Outreach Brenda Adler TANYACarmella YUMIKO VILLANUEVA 1.2.840.114 350.1.13.10 4.2.7.2.686 [id number] [facility] 2023-08-01 00:00:00 2023-08-01 00:00:00 Refill Georgina Serrano [facility] 1.2840.114 350.1.13.10 4.2.7.2.686 [id number] 044 [id number] [facility] 2023-07-31 00:00:00 2023-07-31 00:00:00 Patient Secure Msg Doctor Unassigned, Satsuma [facility]CO?[facility] 1.2840.114 350.1.13.10 4.2.7.2.686 [id number] 044 [id number] [facility] 2023-07-29 00:00:00 2023-07-29 00:00:00 Refill Georgina Serrano [facility] 1.20.114 350.1.13.10 4.2.7.2.686 [id number] 044 [id number] [facility] 2023-07-01 00:00:00 2023-07-01 00:00:00 Refill Georgina Serrano [facility] MAYCO?[facility] 1.2840.114 350.1.13.10 4.2.7.2.686 [id number] 044 [id number] [facility] 2023-06-04 00:00:00 2023-06-04 00:00:[address] [facility] 1.2840.114 350.1.13.10 4.2.7.2.686 [id number] 044 [id number] [facility] 2023-05-28 00:00:00 2023-05-28 00:00:00 Patient Secure Msg Doctor Unassigned, [facility] 1.2840.114 350.1.13.10 4.2.7.2.686 [id number] 044 [id number] [facility] 2023-05-05 00:00:00 2023-05-05 00:00:00 Adrianne [facility] 1.2.840.114 350.1.13.10 4.2.7.2.686 [id number] 044 [id number] [facility] 2023-04-08 00:00:00 2023-04-08 00:00:00 [facility] 1.2.840.114 350.1.13.10 4.2.7.2.686 [id number] 044 [id number] [facility] 2023-03-10 00:00:00 2023-03-10 00:00:00 [facility] 1.2.840.114 350.1.13.10 4.2.7.2.686 [id number] 044 [id number] [facility] 2023-03-03 00:00:00 2023-03-03 00:00:00 Telephone Stormy Spencer [facility] 1.2.840.114 350.1.13.10 4.2.7.2.686 [id number] [facility] 2023-02-12 00:00:00 2023-02-12 00:00:00 Samanthageorge [facility] 1.2.840.114 350.1.13.10 4.2.7.2.686 [id number] [id number] [facility] 2023-02-08 00:00:00 2023-02-08 00:00:00 Case Management Isma Mares [facility] 1.2.840.114 350.1.13.10 4.2.7.2.686 [id number] [facility] 2023-02-06 00:00:00 2023-02-06 00:00:00 Patient Secure [facility] 1.840.114 350.1.13.10 4.2.7.2.686 [id number] 044 [id number] [facility] 2023-02-04 09:29:03 2023-02-04 23:59:00 Outpatient R STORMY SPENCER [facility] [id number] [facility] 2023-02-04 08:15:00 2023-02-04 08:50:06 [facility] 1.840.114 350.1.13.10 4.2.7.2.686 [id number] [facility] 2023-01-22 00:00:00 2023-01-22 00:00:00 Patient Secure Msg Tucker [facility] 1.84.114 350.1.13.10 4.2.7.2.686 [id number] 044 [id number] [facility] 2023-01-21 08:30:00 2023-01-21 08:45:00 Account Installer Visit Lab, Heriberto Taylor Tucker [facility] 1.840.114 350.1.13.10 4.2.7.2.686 [id number] [facility] 2023-01-21 08:15:00 2023-01-21 08:30:38 Outpatient R GEORGINA SERRANO [facility] [id number] [facility] 2023-01-21 08:15:00 2023-01-21 08:30:00 [facility] 1.84.114 350.1.13.10 4.2.7.2.686 [id number] 044 [id number] [facility] 2023-01-21 00:00:00 2023-01-21 00:00:00 Orders Only Doctor Unassigned, Satsuma [facility] 1.2840.114 350.1.13.10 4.2.7.2.686 [id number] [facility] 2023-01-15 00:00:00 2023-01-15 00:00:00 Patient Secure Msg Serrano [facility] 1.2840.114 350.1.13.10 4.2.7.2.686 [id number] 044 [id number] [facility] 2023-01-15 00:00:00 2023-01-15 00:00:00 Refill Ziyad Cira [facility] 1.2840.114 350.1.13.10 4.2.7.2.686 [id number] 044 [id number] [facility] 2022-12-17 00:00:00 2022-12-17 00:00:00 Patient Secure Msg Serrano [facility] 1.840.114 350.1.13.10 4.2.7.2.686 [id number] 044 [id number] [facility] 2022-12-17 00:00:00 2022-12-17 00:00:00 Refill Juliet Gonzalez [facility] 1.284.114 350.1.13.10 4.2.7.2.686 [id number] 044 [id number] [facility] 2022-11-15 00:00:00 2022-11-15 00:00:00 Refill Doctor Unassigned, Satsuma [facility] 1.2840.114 350.1.13.10 4.2.7.2.686 [id number] 044 [id number] [facility] 2022-11-12 07:30:00 2022-11-12 07:30:00 Outpatient GEORGINA BLANTON [facility] [id number] [facility] 2022-10-19 00:00:00 2022-10-19 00:00:00 Refill Doctor Unassigned, S[facility] 1.2.840.114 350.1.13.10 4.2.7.2.686 [id number] 044 [id number] [facility] 2022-09-26 12:30:00 2022-09-26 12:45:00 Office Visit Georgina Serrano [facility] 1.840.114 350.1.13.10 4.2.7.2.686 [id number] 044 [id number] [facility] 2022-09-26 12:30:00 2022-09-26 12:30:00 Outpatient GEORGINA BLANTON [facility] [id number] [facility] 2022-09-22 00:00:00 2022-09-22 00:00:00 Refill Doctor Unassigned, Satsuma [facility] 1.840.114 350.1.13.10 4.2.7.2.686 [id number] 044 [id number] [facility] 2022-09-19 00:00:00 2022-09-19 00:00:00 Refill Doctor Unassigned, Satsuma [facility] 1.840.114 350.1.13.10 4.2.7.2.686 [id number] [id number] [facility] 2022-09-11 00:00:00 2022-09-11 00:00:00 Patient Secure Msg Doctor Unassigned, Satsuma [facility] 1.2.840.114 350.1.13.10 4.2.7.2.686 [id number] 044 [id number] [facility] 2022-08-21 00:00:00 2022-08-21 00:00:00 Refill Doctor Unassigned, Satsuma [facility] 1.2.840.114 350.1.13.10 4.2.7.2.686 [id number] 044 [id number] [facility] 2022-07-25 00:00:00 2022-07-25 00:00:00 Refill Reece Marroquin [facility] 1.2.840.114 350.1.13.10 4.2.7.2.686 [id number] 044 [id number] [facility] 2022-06-26 00:00:00 2022-06-26 00:00:00 Refill Doctor Unassigned, Satsuma [facility] MAYCO?[facility] 1.2.840.114 350.1.13.10 4.2.7.2.686 [id number] 044 [id number] [facility] 2022-05-30 00:00:00 2022-05-30 00:00:00 Refill Doctor Unassigned, Satsuma [facility] 1.2.840.114 350.1.13.10 4.2.7.2.686 [id number] 044 [id number] [facility] 2022-05-01 07:00:00 2022-05-01 07:15:00 Office Visit Georgina Serrano [facility] MAYCO?[facility] 1.2.840.114 350.1.13.10 4.2.7.2.686 [id number] 044 [id number] [facility] 2022-05-01 07:00:00 2022-05-01 07:00:00 Outpatient R GEORGINA SERRANO [facility] [id number] [facility] 2022-05-01 00:00:00 2022-05-01 00:00:00 Orders Only Doctor Unassigned, Satsuma [facility] 1.2840.114 350.1.13.10 4.2.7.2.686 [id number] [facility] 2022-04-19 00:00:00 2022-04-19 00:00:00 Patient Secure Msg Doctor Unassigned, Satsuma [facility] MAYCO?[facility] 1.2840.114 350.1.13.10 4.2.7.2.686 [id number] 044 [id number] [facility] 2022-04-08 00:00:00 2022-04-08 00:00:00 Refill Doctor Unassigned, Satsuma [facility] MAYCO?[facility] 1.2840.114 350.1.13.10 4.2.7.2.686 [id number] 044 [id number] [facility] 2022-04-05 00:00:00 2022-04-05 00:00:00 Refill Doctor Unassigned, Satsuma [facility] MAYCO?[facility] 1.2840.114 350.1.13.10 4.2.7.2.686 [id number] 044 [id number] [facility] 2022-03-10 00:00:00 2022-03-10 00:00:00 Refill Doctor Unassigned, Satsuma [facility] MAYCO?[facility] 1.2840.114 350.1.13.10 4.2.7.2.686 [id number] 044 [id number] [facility] 2022-02-09 00:00:00 2022-02-09 00:00:00 Refill Doctor Unassigned, Satsuma [facility] MAYCO?[facility] 1.2840.114 350.1.13.10 4.2.7.2.686 [id number] 044 [id number] [facility] 2022-01-14 00:00:00 2022-01-14 00:00:00 Refill Doctor Unassigned, Satsuma [facility] 1.2.840.114 350.1.13.10 4.2.7.2.686 [id number] 044 [id number] [facility] 2021-12-14 00:00:00 2021-12-14 00:00:00 Refill Doctor Unassigned, Satsuma [facility] 1.2.840.114 350.1.13.10 4.2.7.2.686 [id number] 044 [id number] [facility] 2021-11-15 00:00:00 2021-11-15 00:00:00 Refill Doctor Unassigned, Satsuma [facility] 1.2.840.114 350.1.13.10 4.2.7.2.686 [id number] 044 [id number] [facility] 2021-10-22 00:00:00 2021-10-22 00:00:00 Refill Doctor Unassigned, Satsuma [facility] 1.2.840.114 350.1.13.10 4.2.7.2.686 [id number] 044 [id number] [facility] 2021-09-20 07:30:00 2021-09-20 07:45:00 Account Installer Visit Lab, Georgina Rodriguez [facility] 1.2.840.114 350.1.13.10 4.2.7.2.686 [id number] [facility] 2021-09-20 07:15:00 2021-09-20 07:33:22 Outpatient R GEORGINA SERRANO [facility] [id number] [facility] 2021-09-20 07:15:00 2021-09-20 07:30:00 Office Visit Georgina Serrano [facility] 1.114 350.1.13.10 4.2.7.2.686 [id number] 044 [id number] [facility] 2021-09-20 07:15:00 2021-09-20 07:15:00 Outpatient R GEORGINA SERRANO [facility] [id number] [facility] 2021-09-20 00:00:00 2021-09-20 00:00:00 Refill Doctor Unassigned, Satsuma [facility] OFF[facility] BUILDING ONE 1.114 350.1.13.10 4.2.7.2.686 [id number] 044 [id number] [facility] 2021-09-17 00:00:00 2021-09-17 00:00:00 Refill Doctor Unassigned, Satsuma [facility] OFF[facility] BUILD[facility] ONE 1.114 350.1.13.10 4.2.7.2.686 [id number] 044 [id number] [facility] 2021-09-03 00:00:00 2021-09-03 00:00:00 Patient Secure Msg Doctor Unassigned, S[facility] 1.114 350.1.13.10 4.2.7.2.686 [id number] 044 [id number] [facility] 2021-08-26 00:00:00 2021-08-26 00:00:00 Refill Doctor Unassigned, Satsuma [facility] OFF[facility] BUILDING ONE 1..114 350.1.13.10 4.2.7.2.686 [id number] 044 [id number] [facility] 2021-07-29 00:00:00 2021-07-29 00:00:00 Refill Doctor Unassigned, Satsuma [facility] OFF[facility] BUILDING ONE 1..114 350.1.13.10 4.2.7.2.686 [id number] 044 [id number] [facility] 2021-07-27 00:00:00 2021-07-27 00:00:00 Refill Doctor Unassigned, Satsuma [facility] OFF[facility] BUILDING ONE 1.840.114 350.1.13.10 4.2.7.2.686 [id number] 044 [id number] [facility] 2021-07-25 00:00:00 2021-07-25 00:00:00 Refill Doctor Unassigned, Satsuma [facility] Office Building One 1..114 350.1.13.10 4.2.7.2.686 [id number] 044 [id number] [facility] 2021-06-29 00:00:00 2021-06-29 00:00:00 Refill Doctor Unassigned, Satsuma [facility] Office Building One 1..114 350.1.13.10 4.2.7.2.686 [id number] 044 [id number] [facility] 2021-06-29 00:00:00 2021-06-29 00:00:00 Refill Doctor Unassigned, Satsuma [facility] Building One 1..114 350.1.13.10 4.2.7.2.686 [id number] 044 [id number] [facility] 2021-06-02 00:00:00 2021-06-02 00:00:00 Refill Doctor Unassigned, Satsuma [facility] One ..114 350.1.13.10 4.2.7.2.686 [id number] 044 [id number] [facility] 2021-05-22 00:00:00 2021-05-22 00:00:00 Orders Only Doctor Unassigned, Satsuma [facility] 1.0.114 350.1.13.10 4.2.7.2.686 [id number] [facility] 2021-05-01 00:00:00 2021-05-01 00:00:00 Refill Doctor Unassigned, Satsuma [facility] Office Building One 1.0.114 350.1.13.10 4.2.7.2.686 [id number] [id number] [facility] 2021-04-30 00:00:00 2021-04-30 00:00:00 Patient Secure Msg Georgina Serrano [facility] Office Building One 1.114 350.1.13.10 4.2.7.2.686 [id number] [id number] [facility] 2021-04-10 00:00:00 2021-04-10 00:00:00 Patient Secure Msg Doctor Unassigned, Satsuma [facility] 1..114 350.1.13.10 4.2.7.2.686 [id number] [facility] 2021-04-09 00:00:00 2021-04-09 00:00:00 Patient Secure Msg Doctor Unassigned, [place] [facility] 1.114 350.1.13.10 4.2.7.2.686 [id number] [facility] 2021-04-03 07:32:26 2021-04-03 07:47:26 Office Visit Georgina Serrano [facility] .114 350.1.13.10 4.2.7.2.686 [id number] [facility] 2021-04-03 07:30:00 2021-04-03 07:30:00 Outpatient R GEORGINA SERRANO [facility] [id number] [facility] 2021-04-03 00:00:00 2021-04-03 00:00:00 Orders Only Doctor Unassigned, [place] [facility] 1.2840.114 350.1.13.10 4.2.7.2.686 [id number] [facility] 2021-03-21 00:00:00 2021-03-21 00:00:00 Patient Secure Msg Doctor Unassigned, [place] [facility] OFF[facility]ILD[facility] ONE 1.2840.114 350.1.13.10 4.2.7.2.686 [id number] [facility] 2021-03-19 00:00:00 2021-03-19 00:00:00 Refill Doctor Unassigned, [place] [facility] 1.2840.114 350.1.13.10 4.2.7.2.686 [id number] [facility] 2021-03-19 00:00:00 2021-03-19 00:00:00 Refill Doctor Unassigned, [place] [facility] 1.2840.114 350.1.13.10 4.2.7.2.686 [id number] [id number] 2021-03-09 00:00:00 2021-03-09 00:00:00 Refill Doctor Unassigned, [place] [facility] 1.20.114 350.1.13.10 4.2.7.2.686 [id number] [facility] 2021-03-09 00:00:00 2021-03-09 00:00:00 Refill Doctor Unassigned, [place] [facility] 1.2840.114 350.1.13.10 4.2.7.2.686 [id number] 2021-02-08 00:00:2021-02-08 00:00:00 Refill Doctor Unassigned, [place] [facility] 1.2840.114 350.1.13.10 4.2.7.2.686 [id number] [id number] [facility] 2021-02-08 00:00:00 2021-02-08 00:00:00 Refill Doctor Unassigned, [place] [facility] 1.2840.114 350.1.13.10 4.2.7.2.686 [id number] 2021-01-11 00:00:00 2021-01-11 00:00:00 Refill Doctor Unassigned, [place] [facility] 1.20.114 350.1.13.10 4.2.7.2.686 [id number] [id number] [facility] 2021-01-11 00:00:00 2021-01-11 00:00:00 Refill Doctor Unassigned, [place] [facility] 1.2840.114 350.1.13.10 4.2.7.2.686 [id number] 2020-12-18 00:00:00 2020-12-18 00:00:00 Patient Outreach [facility] 1.2840.114 350.1.13.10 4.2.7.2.686 [id number] [facility] 2020-12-18 00:00:00 2020-12-18 00:00:00 Patient Outreach [facility] 1.2.840.114 350.1.13.10 4.2.7.2.686 [id number] 2020-12-14 12:51:14 2020-12-14 13:06:14 Office Visit Georgina Serrano [facility] [facility] Office [facility] One 1.840.114 350.1.13.10 4.2.7.2.686 [id number] 044 [id number] [facility] 2020-12-14 12:51:14 2020-12-14 13:06:14 Office Visit Georgina Serrano [facility] Office Building One 1.840.114 350.1.13.10 4.2.7.2.686 [id number] 044 [id number] 2020-12-14 13:00:00 2020-12-14 13:00:00 Outpatient R GEORGINA SERRANO [facility] [id number] [facility] 2020-11-15 00:00:00 2020-11-15 00:00:00 Refill Doctor Unassigned, Satsuma [facility] Office Building One 1.840.114 350.1.13.10 4.2.7.2.686 [id number] 044 [id number] [facility] 2020-11-15 00:00:00 2020-11-15 00:00:00 Refill Reece Marroquin [facility] Office Building One .0.114 350.1.13.10 4.2.7.2.686 [id number] 044 [id number] [facility] 2020-10-20 00:00:00 2020-10-20 00:00:00 Refill Doctor Unassigned, Satsuma [facility] Office Building One .0.114 350.1.13.10 4.2.7.2.686 [id number] 044 [id number] [facility] 2020-10-17 00:00:00 2020-10-17 00:00:00 Refill Doctor Unassigned, Satsuma [facility] Office Building One .840.114 350.1.13.10 4.2.7.2.686 [id number] 044 [id number] [facility] 2020-10-05 08:00:00 2020-10-05 08:00:00 Outpatient R GEORGINA SERRANO [facility] [id number] [facility] 2020-09-26 09:30:00 2020-09-26 09:30:00 Outpatient R [facility] [id number] [facility] 2020-09-26 00:00:00 2020-09-26 00:00:00 Patient Secure Msg Alex Alfonso [facility] 1.0.114 350.1.13.10 4.2.7.2.686 [id number] [facility] 2020-09-23 00:00:00 2020-09-23 00:00:00 Patient Secure Msg Doctor Unassigned, Satsuma [facility] OFFICE BUILDING ONE .114 350.1.13.10 4.2.7.2.686 [id number] 044 [id number] [facility] 2020-09-19 09:23:00 2020-09-19 11:15:00 Emergency S[facility] 1..114 350.1.13.10 4.2.7.2.686 [id number] [id number] [facility] 2020-09-19 00:00:00 2020-09-19 00:00:00 Patient Secure Msg Doctor Unassigned, Satsuma [facility] OFFICE BUILDING ONE .114 350.1.13.10 4.2.7.2.686 [id number] 044 [id number] [facility] 2020-09-19 00:00:00 2020-09-19 00:00:00 Patient Secure Msg Georgina Serrano [facility] Office Building One .114 350.1.13.10 4.2.7.2.686 [id number] 044 [id number] [facility] 2020-09-19 00:00:00 2020-09-19 00:00:00 Patient Secure Msg Tucker [facility] Office Building One 1..114 350.1.13.10 4.2.7.2.686 [id number] 044 [id number] [facility] 2020-09-14 14:00:40 2020-09-14 14:15:40 [facility] 1..114 350.1.13.10 4.2.7.2.686 [id number] 044 [id number] [facility] 2020-09-14 14:15:00 2020-09-14 14:15:00 [facility] [id number] [facility] 2020-09-04 00:00:00 2020-09-04 00:00:00 Patient Secure Msg Tucker [facility] Office Building One 1..114 350.1.13.10 4.2.7.2.686 [id number] 044 [id number] [facility] 2020-09-01 16:21:00 2020-09-01 20:00:00 Emergency [facility] 1.0.114 350.1.13.10 4.2.7.2.686 [id number] [id number] [facility] 2020-09-01 16:21:00 2020-09-01 20:00:00 Emergency X SHELIA DENIS [facility] [id number] [facility] 2020-09-01 00:00:00 2020-09-01 00:00:00 Orders Only Doctor Unassigned, Satsuma [facility] 1.2840.114 350.1.13.10 4.2.7.2.686 [id number] [id number] [facility] 2020-08-22 00:00:00 2020-08-22 00:00:00 Patient Secure Msg Doctor Unassigned, Satsuma [facility] OFFICE BUILDING ONE 1.2840.114 350.1.13.10 4.2.7.2.686 [id number] 044 [id number] [facility] 2020-08-21 00:00:00 2020-08-21 00:00:00 Patient Secure Msg Georgina Serrano [facility] Office Building One 1.2840.114 350.1.13.10 4.2.7.2.686 [id number] 044 [id number] [facility] 2020-08-17 00:00:00 2020-08-17 00:00:00 Patient Secure Msg Doctor Unassigned, Satsuma [facility] OFFICE BUILDING ONE 1.2840.114 350.1.13.10 4.2.7.2.686 [id number] 044 [id number] [facility] 2020-08-17 00:00:00 2020-08-17 00:00:00 Telephone Georgina Serrano [facility] Office Building One 1.2840.114 350.1.13.10 4.2.7.2.686 [id number] 044 [id number] [facility] 2020-08-17 00:00:00 2020-08-17 00:00:00 Patient Secure Msg Georgina Serrano [facility] Office Building One 1.2840.114 350.1.13.10 4.2.7.2.686 [id number] 044 [id number] [facility] 2020-08-16 00:00:00 2020-08-16 00:00:00 Patient Secure Msg Georgina Serrano [facility] Office Building One 1.2840.114 350.1.13.10 4.2.7.2.686 [id number] 044 [id number] [facility] 2020-08-16 00:00:00 2020-08-16 00:00:00 Patient Secure Msg Doctor Unassigned, Satsuma [facility] Office Building One 1.114 350.1.13.10 4.2.7.2.686 [id number] 044 [id number] [facility] 2020-08-14 00:00:00 2020-08-14 00:00:00 Refill Doctor Unassigned, Satsuma [facility] Office Building One 1.114 350.1.13.10 4.2.7.2.686 [id number] 044 [id number] [facility] 2020-08-07 00:00:00 2020-08-07 00:00:00 Patient Secure Msg Georgina Serrano [facility] Office Building One 1.114 350.1.13.10 4.2.7.2.686 [id number] 044 [id number] [facility] 2020-07-27 08:00:00 2020-07-27 08:00:00 Outpatient R MARJ DOMÍNGUEZ [facility] [id number] [facility] 2020-07-25 00:00:00 2020-07-25 00:00:00 Outpatient R MARJ DOMÍNGUEZ [facility] [id number] [facility] 2020-07-25 00:00:00 2020-07-25 00:00:00 Patient Secure g Marj Domínguez [facility] 1.114 350.1.13.10 4.2.7.2.686 [id number] [facility] 2020-07-25 00:00:00 2020-07-25 00:00:00 Patient Secure Msg Marj Domínguez [facility] 1..114 350.1.13.10 4.2.7.2.686 [id number] [facility] 2020-07-19 00:00:00 2020-07-19 00:00:00 Refill Doctor Unassigned, Satsuma [facility] Office Building One 1.114 350.1.13.10 4.2.7.2.686 [id number] 044 [id number] [facility] 2020-07-17 00:00:00 2020-07-17 00:00:00 Patient Secure Msg Marj Domínguez [facility] 1.114 350.1.13.10 4.2.7.2.686 [id number] 134 [id number] [facility] 2020-07-14 08:07:27 2020-07-14 08:40:29 Office Visit Marj Domínguez [facility] Building 1.114 350.1.13.10 4.2.7.2.686 [id number] [facility] 2020-07-14 08:00:00 2020-07-14 08:00:00 Outpatient R MARJ DOMÍNGUEZ [facility] [id number] [facility] 2020-07-14 00:00:00 2020-07-14 00:00:00 Orders Only Doctor Unassigned, Satsuma [facility] 1.114 350.1.13.10 4.2.7.2.686 [id number] [id number] [facility] 2020-07-14 00:00:00 2020-07-14 00:00:00 Patient Secure Msg Doctor Unassigned, Satsuma [facility] OFFICE BUILDING ONE 1.114 350.1.13.10 4.2.7.2.686 [id number] 044 [id number] [facility] 2020-07-13 08:45:00 2020-07-13 08:45:00 Outpatient R GEORGINA SERRANO [facility] [id number] [facility] 2020-07-13 08:09:43 2020-07-13 08:24:43 Account Installer Visit Lab, Georgina Jean [facility] 1.114 350.1.13.10 4.2.7.2.686 [id number] [facility] 2020-07-12 16:00:00 2020-07-12 16:00:00 Outpatient MARJ MARTINI [facility] [id number] Jacintobj [facility] 2020-06-22 06:59:59 2020-06-22 07:14:59 Office Visit Tucker [facility] Office Building One 1.0.114 350.1.13.10 4.2.7.2.686 [id number] 044 [id number] [facility] 2020-06-22 07:00:00 2020-06-22 07:00:00 Outpatient R SERRANO GEORGINA [facility] [id number] [facility] 2020-06-22 00:00:00 2020-06-22 00:00:00 Letter (Out) Doctor Unassigned, Satsuma [facility] 1..114 350.1.13.10 4.2.7.2.686 [id number] 044 [id number] [facility] 2020-05-17 00:00:00 2020-05-17 00:00:00 Refill Tucker [facility] Office Building One 1..114 350.1.13.10 4.2.7.2.686 [id number] 044 [id number] [facility] 2020-04-20 00:00:00 2020-04-20 00:00:00 Refill Tucker Georgina [facility] Office Building One .114 350.1.13.10 4.2.7.2.686 [id number] 044 [id number] [facility] 2020-03-23 00:00:00 2020-03-23 00:00:00 Refgeorge Serrano [facility] Building 1..114 350.1.13.10 4.2.7.2.686 [id number] 044 [id number] [facility] 2020-02-25 00:00:00 2020-02-25 00:00:00 Telephone Tucker Georgina [facility] [place] [facility] 1.2.840.114 350.1.13.10 4.2.7.2.686 [id number] 044 [id number] [facility] 2020-02-24 08:00:00 2020-02-24 08:00:00 Outpatient R GEORGINA SERRANO [facility] [id number] [facility] 2020-02-24 07:10:45 2020-02-24 07:25:45 Telemedici ne Visit Georgina Serrano [facility] 1.2.840.114 350.1.13.10 4.2.7.2.686 [id number] 044 [id number] [facility] Notes Date/Time Note Provider Source 2024-03-01 13:58:48 2539-57-66J21:58:48F ormatting of this note is different from the original.lisdexamfetamine (VYVANSE) 50 mg capsule 30 capsule 0 01/28/2024HYDROcodone-acetaminophen 10-325 mg tablet 28 tablet 0 01/20/2024[facility] VisitsDate Type Provider Dept110/11/22 Office Visit Georgina Serrano MD Ang-[facility] Med01/21/23 Office Visit Georgina Serrano MD [facility] Med09/26/22 Office Visit Georgina Serrano MD [facility] MedShowing recent visits within past 540 days with a meds authorizing provider and meeting all other requirementsFuture AppointmentsNo visits were found meeting these conditions.Showing future appointments within next 150 days with a meds authorizing provider and meeting all other requirements 55026-9Euzemnnvu encounter HafjBK3259-56-69G51:59:37Telephone encounter NoteTXT1.2.840.323564.1.13.104.2.7.2.91190 9|[id number] for patient faem42760-9YkhnFCHNIZRVBSPIlbgahmwq C-CDA narrative [address] [id number] CORBETTDDWANMSIIZUWPQGL3942-86-14I00:59:371.2.840 .071607.1.72.3.15|1.2.840.627800.1.13.104. 2.7.2.727879_[id number] [facility] 2024-03-01 13:58:44 2594-54-88E18:58:44F rom: [place] Rios: Office of Georgina SerranoSent: 02/27/2024 7:03 PM CDTSubject: Medication Renewal RequestRefills have been requested for the following medications:HYDROcodone-acetaminophen 10-325 mg tablet [Georgina Serrano]lisdexamfetamine (VYVANSE) 50 mg capsule [Georgina Serrano]Preferred pharmacy: [facility] [address] Sammy ROSE ALMA PRESCOTTelivery method: Pickup 32497-0Ehdxtwoeg encounter MioyCA8538-49-46L67:58:44Telephone encounter NoteTXT1.2.840.382345.1.13.104.2.7.2.22828 9|[id number] for patient azxt90494-7DpmlDIWUXLELMUVDxjvxvtmm C-CDA narrative [id number] BSCQADGVFZUGBCCA8515-07-86X64:58:441.2.840 .364715.1.72.3.15|1.2.840.218551.1.13.104. 2.7.2.727879_[id number] [facility] 2024-01-20 08:36:28 6662-54-64F75:36:28F rom: Hill Rios: Office of Georgina Serrano, MDSent: 01/20/2024 8:24 AM CDTSubject: Medication Renewal RequestRefills have been requested for the following medications:HYDROcodone-acetaminophen 10-325 mg tablet [Goergina Serrano]lisdexamfetamine (VYVANSE) 50 mg capsule [Georgina Serrano]Preferred pharmacy: [facility] [address] [place] method: Pickup 79626-9Oeayaexwn encounter QlsfHQ7589-58-30K41:36:28Telephone encounter NoteTXT1.2.840.028082.1.13.104.2.7.2.63270 9|[id number] for patient rcpv96638-2EcwrNSNTMRWRPJQEkvzpeyhu C-CDA narrative text[address] MkslOpefhdgwuJyncxizcaHCGJ0366802644DPHYJY QZLDXUSEBDESAIFC2082-37-12L46:36:281.2.840 .638517.1.72.3.15|1.2.840.181780.1.13.104. 2.7.2.727879_[id number] [facility] 2023-11-24 07:08:08 4157-87-26H37:08:08F ormatting of this note is different from the original.From: [place] Rios: Office of Georgina Serrano, MDSent: 11/22/2023 2:23 PM CSTSubject: Medication Renewal RequestRefills have been requested for the following medications:lisdexamfetamine (VYVANSE) 50 mg capsule [Georgina Serrano]Preferred pharmacy: [facility] [address] [facility] [address] [place] method: PickupRecent VisitsDate Type Provider Dept110/11/22 Office Visit Georgina Serrano MD [facility] Med01/21/23 Office Visit Georgina Serrano MD [facility] Med09/26/22 Office Visit Georgina Serrano MD [facility] MedShowing recent visits within past 540 days with a meds authorizing provider and meeting all other requirementsFuture AppointmentsNo visits were found meeting these conditions.Showing future appointments within next 150 days with a meds authorizing provider and meeting all other requirements 78306-3Ycoksnyyc encounter LylkOC0440-53-12D98:08:21Telephone encounter NoteTXT1.2.840.018771.1.13.104.2.7.2.99976 9|[id number] for patient hyvp87348-9LblkIGHLEKBLTTNIzelqplwb C-CDA narrative text[address] OosuQltjzuneuDhehpolxeBWBP7555148084APQOJU WNZDDXCMGIHVUIRO1089-68-12S70:08:211.2.840 .208895.1.72.3.15|1.2.840.699598.1.13.104. 2.7.2.727879_[id number] [facility] 2023-10-22 08:09:52 8970-62-69U22:09:52F ormatting of this note is different from the original.From: Hill Rios: Office of ANA M Bourgeoisent: 10/22/2023 8:00 AM CSTSubject: Medication Renewal RequestRefills have been requested for the following medications:HYDROcodone-acetaminophen 10-325 mg tablet [Georgina Serrano]lisdexamfetamine (VYVANSE) 50 mg capsule [Georgina Serrano]Preferred pharmacy: [facility] [address] [place] method: PickupRecent VisitsDate Type Provider Dept110/11/22 Office Visit Georgina Serrano MD [facility] Med01/21/23 Office Visit Georgina Serrano MD [facility] Med09/26/22 Office Visit Georgina Serrano MD [facility] Med05/01/22 Office Visit Georgina Serrano MD [facility] MedShowing recent visits within past 540 days with a meds authorizing provider and meeting all other requirementsFuture AppointmentsNo visits were found meeting these conditions.Showing future appointments within next 150 days with a meds authorizing provider and meeting all other requirements 86192-3Pithvzgsx encounter YntyDS6955-62-10D93:10:02Telephone encounter NoteTXT1.2.840.408568.1.13.104.2.7.2.07808 9|[id number] for patient qxlz14825-2SvfkIEUTXYMACPAPmyiplrqe C-CDA narrative text[address] EmsgDazgxmliaXufitieyjIRQP2980915444SGGUME DPNITAEQLEZNYLNX9158-49-56R96:10:021.2.840 .239109.1.72.3.15|1.2.840.584501.1.13.104. 2.7.2.727879_[id number] [facility] 2023-09-24 11:29:14 9930-01-39C75:29:14F ormatting of this note is different from the original.From: [place] Rios: Office of ANA M Bourgeoisent: 09/24/2023 12:40 AM CSTSubject: Medication Renewal RequestRefills have been requested for the following medications:HYDROcodone-acetaminophen 10-325 mg tablet [Georgina Serrano]lisdexamfetamine (VYVANSE) 50 mg capsule [Georgina Serrano]Preferred pharmacy: [facility] [address] [place] method: PickupRecent VisitsDate Type Provider Dept110/11/22 Office Visit Georgina Serrano MD [facility]01/21/23 Office Visit Georgina Serrano MD Ang[facility] Med09/26/22 Office Visit Georgina Serrano MD [facility] Med05/01/22 Office Visit Georgina Serrano MD Ang[facility] Fam MedShowing recent visits within past 540 days with a meds authorizing provider and meeting all other requirementsFuture AppointmentsNo visits were found meeting these conditions.Showing future appointments within next 150 days with a meds authorizing provider and meeting all other requirements 48616-5Malkgswmt encounter RspdYI1830-62-92T36:29:23Telephone encounter NoteTXT1.2.840.772139.1.13.104.2.7.2.83459 9|[id number] for patient vcju39323-8SkclFNQHVSNXERZZahartayy C-CDA narrative text[address] JggnXukallayoCqewrmkqaCVPA2418247823AUUSLP FNEIJPGLTVVVTUWV6790-10-05I76:29:231.2.840 .785631.1.72.3.15|1.2.840.369471.1.13.104. 2.7.2.727879_[id number] [facility] 2023-06-04 07:18:35 2767-70-28I55:18:35F ormatting of this note is different from the original.Message from Next[employer]:Refills have been requested for the following medications: lisdexamfetamine (VYVANSE) 50 mg capsule [Georgina Serrano] HYDROcodone-acetaminophen 10-325 mg tablet [Georgina Serrano]Preferred pharmacy: [facility] [address] [place] method: PickupRecent VisitsDate Type Provider Dept 01/21/23 Office Visit Georgina Serrano MD [facility] 09/26/22 Office Visit Georigna Serrano MD [facility] 05/01/22 Office Visit Georgina Serrano MD [facility] Showing recent visits within past 540 days with a meds authorizing provider and meeting all other requirementsFuture AppointmentsNo visits were found meeting these conditions.Showing future appointments within next 150 days with a meds authorizing provider and meeting all other requirements 29314-2Yjpabtqic encounter MdflBM9613-96-15J79:19:06Telephone encounter NoteTXT1.2.840.647871.1.13.104.2.7.2.35660 9|[id number] for patient orkf35302-7BrrsTCMZEBGZHK[address] DcgpCrryjouzmSzcngmfjnPHRB5933208441UHRHKM BTFAMNQUXNSOGLMQ6598-61-11G48:19:061.2.840 .946513.1.72.3.15|1.2.840.549694.1.13.104. 2.7.2.727879_[id number] [facility] 2023-05-05 10:11:47 6952-79-55Y44:11:47F ormatting of this note is different from the original.Message from [employer]:Refills have been requested for the following medications: lisdexamfetamine (VYVANSE) 50 mg capsule [Georgina Serrano] HYDROcodone-acetaminophen 10-325 mg tablet [Georgina Serrano]Preferred pharmacy: [facility] [address] [place] method: PickupRecent VisitsDate Type Provider Dept 01/21/23 Office Visit Georgina Serrano MD [facility] 09/26/22 Office Visit Georgina Serrano MD [facility] 05/01/22 Office Visit Georgina Serrano MD [facility] Showing recent visits within past 540 days with a meds authorizing provider and meeting all other requirementsFuture AppointmentsNo visits were found meeting these conditions.Showing future appointments within next 150 days with a meds authorizing provider and meeting all other requirements 92349-5Iyachmiws encounter WmrcCM7082-85-52M49:12:05Telephone encounter NoteTXT1.2.840.285094.1.13.104.2.7.2.08698 9|[id number] for patient fwxv61358-5MsrqBKMJGHZONA[address] NsjgFsncveielMdfqekgcwGWBS9579465965YTEWXA QIBALNXGFSVXUZYO2795-38-94J94:12:051.2.840 .549457.1.72.3.15|1.2.840.767625.1.13.104. 2.7.2.727879_[id number] [facility]"
[2024-03-13 17:53] LABS: Absolute Basophils 0.1 K/uL (0-0.5); Absolute Eosinophils 0.1 K/uL (0-0.5); Absolute Lymphocytes (CBC) 3.2 K/uL (0.7-4.9); Absolute Monocytes 0.9 K/uL (0.1-1.3); Absolute Neutrophil 7.8 K/uL (1.8-8.0); Basophils % 0.9 % (0-1.3); Eosinophils % 0.8 % (0-4.4); Hematocrit 40.3 % (36.0-45.0); Hemoglobin 14.2 g/dL (12.0-15.0); Lymphocytes % 26.5 % (15.3-44.8); MCH 31.5 pg (27.0-35.0); MCHC 35.3 g/dL (32.0-36.0); MCV 89.2 fL (80-100); MPV 7.3 fL (7.6-11.3); Monocytes % 7.5 % (3.3-12.3); Neutrophils % 64.3 % (41.7-73.7); Nucleated Red Blood Cells % 0.3 % (0-0); Platelets 373 thou/uL (152-406); RBC Red Blood Cell Count 4.52 M/uL (3.86-4.86); Red Cell Distribution Width 13.4 % (12.1-15.2)
[2024-03-13 18:04] LABS: PT Prothrombin Time 13.5 SECONDS (9.5-12.5); Protime INR 1.23
[2024-03-13 18:13] LABS: Albumin 4.6 g/dL (3.4-5.0); Albumin/Globulin Ratio 1.2 (1.1-1.8); Alkaline Phosphatase 56 U/L (45-117); Anion Gap 13.7 mEq/L (5.0-15.0); BUN Blood Urea Nitrogen 12 mg/dL (7-18); Bicarbonate 19 mEq/L (21-32); Bilirubin Direct 0.3 mg/dL (0-0.2); Bilirubin Indirect, Calculated 0.5 mg/dL (0.2-0.8); Bilirubin Total 0.8 mg/dL (0.2-1.0); Globulin 3.8 g/dL (2.3-3.5); Glomerular Filtration Rate 44 ml/min (=/>90); Glucose Level 95 mg/dL (74-106); Magnesium 1.9 mg/dL (1.6-2.4); NT PRO-BNP 72 pg/mL (<125); Potassium 3.7 mEq/L (3.5-5.1); Protein, Total 8.4 g/dL (6.4-8.2); Sodium Level 136 mEq/L (136-145)
[2024-03-13 18:34] LABS: ALT/SGPT < 14 U/L (13-56); AST/SGOT < 10 U/L (15-37); Troponin High Sensitivity < 3.0 pg/mL (<58.9)
[2024-03-13] MEDS ORDERED: NA CHLORIDE 0.9% 1,000 ML ONE (18:41)
--- NOTE | 2024-03-13 18:55 | RAD REPORT ---
EXAM DESCRIPTION: E[place] Single View03/13/2024 6:22 pm CLINICAL HISTORY: Chest pain COMPARISON: none FINDINGS: The lungs appear clear of acute infiltrate. The heart is normal size IMPRESSION: No acute abnormalities displayed
--- NOTE | 2024-03-13 19:45 | RAD REPORT ---
EXAM DESCRIPTION: CT - Chest For Pe Angio - 03/13/2024 7:29 pm CLINICAL HISTORY: sob COMPARISON: None. TECHNIQUE: Dynamically enhanced axial 3 mm thick images of the chest were obtained during administra tion of 100 mL Isovue 370 IV contrast. Coronal and oblique reconstruction images were generated and r eviewed. Exam utilizes a protocol for optimal evaluation of pulmonary arterial tree. Maximum intensity projections 3D imaging was utilized All CT scans are performed using dose optimization technique as appropriate and may include automated exposure control or mA/KV adjustment according to patient size. FINDINGS: A pulmonary embolus is not seen. A thoracic aortic aneurysm is not noted. A pleural effusion is not seen. A pericardial effusion is not seen. A lung consolidation is not present. IMPRESSION: Negative for a pulmonary embolism.
--- NOTE | 2024-03-13 19:54 | EDPHYS ---
Physician Documentation [facility] Name: Abbi Johnson Age: 38 yrs Sex: Female : 1985 Arrival Date: 03/13/2024 Time: 17:29 Bed 16 Private MD: ED Physician Dorian Schmitt HPI: 03/13 20:18 This 38 yrs old Female presents to ER via Ambulatory with complaints of Shortness Of kb Breath, Palpitations, Chest Pain. 20:18 Pt is a 38 year old female with a history of crohns who presents for shortness of kb breath and palpitations that started this morning. States she was very fatigued yesterday and did get short of breath at times, but today has been worse. Denies cough, congestion, fever. . 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 - Infectious Disease History:: Denies. - Social history:: Smoking status: Reported history of juuling and/or vaping. ROS: 20:16 Constitutional: As per HPI kb Exam: 18:25 ECG was reviewed by the Attending Physician. kb 20:16 Head/Face: Normocephalic, atraumatic. ENT: Moist Mucous membranes Abdomen/GI: Soft, kb non-tender. No distention Skin: Warm, dry with normal turgor. Normal color. MS/ Extremity: Pulses equal, no cyanosis. Neurovascular intact. Full, normal range of motion. Neuro: Awake and alert, GCS 15, oriented to person, place, time, and situation. Moves all extremities. Normal gait. 20:16 Constitutional: The patient appears alert, awake, 20:16 Cardiovascular: Rate: tachycardic, 20:16 Respiratory: moderate respiratory distress is noted, Respirations: labored breathing, Breath sounds: are clear throughout, Vital Signs: 17:40 BP 102 / 87; Pulse 104; Resp 26; Temp 97.4; Pulse Ox 98% on R/A; Weight 83.91 kg; ph Height 5 ft. 10 in. ; 18:33 BP 109 / 61; Pulse 91; Resp 18; Pulse Ox 100% on R/A; mb9 17:40 Body Mass Index 26.54 (83.91 kg, 177.8 cm) ph MDM: 17:33 Patient medically screened. kb 19:05 Management of patient was discussed with the following: Hospitalist: Dr Mejia requests kb CT prior to admission. Scoring Tools PERC Rule for PE Age >/= 50 No HR >/= 100 No O2 Sat Room Air < 95% No Unilateral leg swelling No Hemoptysis No Recent surgery or trauma </= 4 wks ago requiring treatment with general anesthesia No (0 pt) Prior PE or DVT No Hormone use (Oral contraceptives, hormone replacement or estrogenic hormones use in males or female patients No. 20:17 Differential diagnosis: Bronchitis Myocardial Infarction pneumonia, pulmonary edema, kb Pulmonary Embolism arrhythmia. Data reviewed: vital signs, nurses notes. Consideration of Admission/Observation Patient was admitted/placed on observation. Escalation of care including admission/observation considered. Management of patient was discussed with the following: Hospitalist: Dr Mejia accepts pt for admission. Historians other than the Patient: Spouse/Significant Other: spouse. Counseling: I had a detailed discussion with the patient and/or guardian regarding the historical points, exam findings, and any diagnostic results supporting the discharge/admit diagnosis, lab results, radiology results, the need for further work-up and treatment in the hospital. ED course: Respirations even and unlabored while resting on stretcher. Work of breathing and respiratory rate increases with exertion. . 03/13 17:44 Order name: Basic Metabolic Panel; Complete Time: 18:37 kb 03/13 17:44 Order name: CBC with Diff; Complete Time: 18:00 kb 03/13 17:44 Order name: D-Dimer; Complete Time: 18:04 kb 03/13 17:44 Order name: LFT's; Complete Time: 18:37 kb 03/13 17:44 Order name: Magnesium; Complete Time: 18:37 kb 03/13 17:44 Order name: NT PRO-BNP; Complete Time: 18:37 kb 03/13 17:44 Order name: PT-INR; Complete Time: 18:04 kb 03/13 17:44 Order name: Troponin HS; Complete Time: 18:37 kb 03/13 21:15 Order name: Thyroid Stimulating Hormone EDMS 03/13 21:15 Order name: Urinalysis w/ reflexes EDMS 03/13 21:15 Order name: CBC with Automated Diff EDMS 03/13 21:15 Order name: CBC with Automated Diff EDMS 03/13 21:15 Order name: Comprehensive Metabolic Panel EDMS 03/13 21:15 Order name: Comprehensive Metabolic Panel EDMS 03/13 21:15 Order name: Troponin High Sensitivity EDMS 03/13 21:15 Order name: Troponin High Sensitivity EDMS 03/13 21:15 Order name: Troponin High Sensitivity EDMS 03/13 21:15 Order name: Troponin High Sensitivity EDMS 03/13 22:54 Order name: Lactate w/ 2H reflex if indic. EDMS 03/13 22:54 Order name: NT PRO-BNP EDMS 03/13 22:54 Order name: Thyroid Stimulating Hormone EDMS 03/13 22:54 Order name: Urinalysis w/ reflexes EDMS 03/13 22:54 Order name: Urine Drug Screen EDMS 03/14 01:53 Order name: T4 Free EDMS 03/14 06:07 Order name: CBC Smear Scan EDMS 03/13 17:44 Order name: XRAY Chest (1 view); Complete Time: 19:02 kb 03/13 19:05 Order name: CT Chest For PE Angio; Complete Time: 19:53 kb 03/13 21:15 Order name: Echo with Doppler EDMS 03/13 17:44 Order name: EKG; Complete Time: 17:45 kb 03/13 17:44 Order name: Cardiac monitoring; Complete Time: 17:44 kb 03/13 17:44 Order name: EKG - Nurse/Tech; Complete Time: 17:44 kb 03/13 17:44 Order name: IV Saline Lock; Complete Time: 17:44 kb 03/13 17:44 Order name: Labs collected and sent; Complete Time: 17:44 kb 03/13 17:44 Order name: O2 Per Protocol; Complete Time: 17:44 kb 03/13 17:44 Order name: O2 Sat Monitoring; Complete Time: 17:44 kb EC:25 Rate is 100 beats/min. Rhythm is regular. QRS [place] is Normal. CO interval is normal at kb 142 msec. QRS interval is normal at 78 msec. QT interval is normal at 454 msec. Administered Medications: 18:44 Drug: NS 0.9% IV 1000 ml IV at 1000 ml once Route: IV; Rate: 1000 ml; Site: left mb9 antecubital; Disposition Summary: 03/13/24 19:54 Hospitalization Ordered Notes: Hospitalization Status: Observation kb Provider: Kenny Mejia Condition: Stable kb Problem: new kb Symptoms: are unchanged kb Bed/Room Type: Standard kb Location: [facility] ER HOLD(03/14/24 13:52) [facility] Room Assignment: (03/14/24 13:52) [facility] Diagnosis - Dyspnea kb - Palpitations kb - Acute kidney failure, unspecified kb Forms: - Medication Reconciliation Form kb - SBAR form kb - Leadership Thank You Letter kb Addendum: 03/16/2024 14:17 I was immediately available for consultation during this patient's visit. I did not e c2 personally see the patient or discuss the patient with the HEIDI. . Signatures: Dispatcher [employer] EDWY Marce Chacon, RODRICK ESTRADA-Elda Martin RN RN Caron Jo RN RN Uyen Heredia RN RN mb9 Droian Schmitt MD MD 2 Brooke Casey [facility] Corrections: (The following items were deleted from the chart) 03/13 19:06 19:06 Chest For PE Angio+CT.RAD.BRZ ordered. [facility] 20:05 19:54 Telemetry/MedSurg (observation) kb 20:05 19:54 kb 03/14 13:00 03/13 20:05 [facility] ER HOLD [place] [id number] 03/14 13:00 03/13 20:05 ERHOLD- [place] [address] 03/14 13:52 13:00 Telemetry/MedSurg (observation) [facility] 13:52 13:00 [address] [place] [id number]
--- NOTE | 2024-03-13 19:54 | ER ---
Nurse's Notes [facility] Name: Abbi Johnson Age: 38 yrs Sex: Female : 1985 Arrival Date: 03/13/2024 Time: 17:29 Bed 16 Private MD: Diagnosis: Dyspnea;Palpitations;Acute kidney failure, unspecified Presentation: 03/13 17:40 Chief complaint: Patient states: SOB w/ exertion, palpitations, chest pressure and ph intermittent fever x 1 week. Coronavirus screen: Vaccine status: Patient reports receiving the 2nd dose of the covid vaccine. Ebola Screen: No symptoms or risks identified at this time. Initial Sepsis Screen: Does the patient meet any 2 criteria? No. Patient's initial sepsis screen is negative. Does the patient have a suspected source of infection? No. Patient's initial sepsis screen is negative. Risk Assessment: Do you want to hurt yourself or someone else? Patient reports no desire to harm self or others. Onset of symptoms was March 13, 2024. 17:40 Method Of Arrival: Ambulatory ph 17:40 Acuity: KERRI 2 ph Triage Assessment: 17:42 General: Appears in no apparent distress. uncomfortable, Behavior is calm, cooperative. ph Pain: Complains of pain in chest. Respiratory: Reports shortness of breath on exertion the patient has moderate shortness of breath. 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 - Infectious Disease History:: Denies. - Social history:: Smoking status: Reported history of juuling and/or vaping. Screenin:34 [facility] ED Fall Risk Assessment (Adult) History of falling in the last 3 months, mb9 including since admission No falls in past 3 months (0 pts) Confusion or Disorientation No (0 pts) Intoxicated or Sedated No (0 pts) Impaired Gait No (0 pts) Mobility Assist Device Used No (0 pt) Altered Elimination No (0 pt) Score/Fall Risk Level 0 - 2 = Low Risk Oriented to surroundings, Maintained a safe environment, Educated pt \T\ family on fall prevention, incl call for assistance when getting out of bed. Abuse screen: Denies threats or abuse. Nutritional screening: No deficits noted. Tuberculosis screening: No symptoms or risk factors identified. Assessment: 17:41 General: Appears uncomfortable, Behavior is cooperative. Pain: Complains of pain in mb9 chest Pain does not radiate. Quality of pain is described as throbbing, Pain began suddenly, Is intermittent. Neuro: Kong Agitation-Sedation Scale (RASS): 0 - Alert and Calm Level of Consciousness is awake, alert, obeys commands, Oriented to person, place, time, situation, Appropriate for age Reports dizziness. Cardiovascular: Rhythm is. Cardiovascular: Reports chest pain, palpitations, Heart tones S1 S2 present Patient's skin is warm and dry. Pulses are all present. Rhythm is regular. Respiratory: Reports shortness of breath Airway is patent Respiratory effort is even, labored, Respiratory pattern is tachypnea Breath sounds are clear bilaterally. GI: Abdomen is flat, non-distended, Bowel sounds present X 4 quads. Abd is soft and non tender X 4 quads. Patient currently denies diarrhea, nausea, vomiting. : No signs and/or symptoms were reported regarding the genitourinary system. EENT: No signs and/or symptoms were reported regarding the EENT system. Derm: Skin is pink, warm \T\ dry. Musculoskeletal: Range of motion: intact in all extremities. Vital Signs: 17:40 BP 102 / 87; Pulse 104; Resp 26; Temp 97.4; Pulse Ox 98% on R/A; Weight 83.91 kg; ph Height 5 ft. 10 in. ; 18:33 BP 109 / 61; Pulse 91; Resp 18; Pulse Ox 100% on R/A; mb9 17:40 Body Mass Index 26.54 (83.91 kg, 177.8 cm) ph ED Course: 17:31 Patient arrived in ED. rg4 17:33 Marce Chacon F[facility]-C [facility] kb 17:33 Dorian Schmitt MD is Attending Physician. kb 17:34 Uyen Heredia RN is Primary Nurse. mb9 17:34 Arm band placed on. mb9 17:41 Initial lab(s) drawn, by me, sent to lab. EKG done, by ED staff, reviewed by Marce MENSAH. Inserted saline lock: 18 gauge in left antecubital area, using aseptic technique. 17:42 Triage completed. ph 17:42 Placed in gown. Bed in low position. Call light in reach. Side rails up X 1. Provided mayo Education on: press call light if needing anything. Client placed on continuous cardiac and pulse oximetry monitoring. NIBP monitoring applied. desk monitor on. Door closed. Noise minimized. Warm blanket given. Pillow given. 17:43 No provider procedures requiring assistance completed. mb9 18:24 XRAY Chest (1 view) In Process Unspecified. EDMS 19:06 Report received from Bety. cp4 19:31 CT Chest For PE Angio In Process Unspecified. EDMS 19:54 Kenny Mejia MD is Hospitalizing Provider. kb 23:43 Patient admitted, IV remains in place. cp4 03/14 13:30 Repeat lab(s) drawn. by ne, sent to lab. aw1 Administered Medications: 03/13 18:44 Drug: NS 0.9% IV 1000 ml IV at 1000 ml once Route: IV; Rate: 1000 ml; Site: left mb9 antecubital; Medication: 17:42 VIS not applicable for this client. mb9 Outcome: 19:54 Decision to Hospitalize by Provider. kb 23:42 Admitted to ER Hold. Please see [facility] for further documentation. cp4 23:42 Condition: stable 23:42 Instructed on the need for admit, 03/14 14:38 Patient left the ED. me1 Signatures: Dispatcher [employer] Marce Capps, RODRICK JENKINSP-Elda Martin RN RN ph Tami Steward 4 Uyen Heredia RN RN mb9 Emily Hopson aw1 Nay Strauss RN RN me1 Lori Penaloza cp4 Corrections: (The following items were deleted from the chart) 03/13 17:46 17:41 Respiratory: Reports shortness of breath Airway is patent Respiratory effort is mb9 even, unlabored, Respiratory pattern is regular, symmetrical, Breath sounds are clear bilaterally. mb9
[2024-03-13] MEDS ORDERED: ONDANSETRON 4 MG/2 ML VIAL IV PRN (21:09)
--- NOTE | 2024-03-13 21:10 | P.HP ---
Certification for Inpatient Patient admitted to: Observation With expected LOS: <2 Midnights Practitioner: I am a practitioner with admitting privileges, knowledge of patient current condition, hospital course, and medical plan of care. Services: Services provided to patient in accordance with Admission requirements found in Title 42 Section 412.3 of the Code of Federal Regulations Patient History Date of Service: 03/13/24 Reason for admission: SOB / Fatigue History of Present Illness: 38-year-old female with past medical history of Crohn's disease brought to ER with generalized weakness and shortness of breath , associated with palpitation. Patient denies any chest pain. No fever or chills. No nausea vomiting or diarrhea. Denies any sick contacts. Patient complains of extreme fatigue and getting short winded with minimal exertion. No previous history of CAD. No history of CHF. No lower extremity swelling Patient was assessed in the ER and had a workup with CT PE protocol which was negative for PE. Patient also was noted to have PVCs multiple and was admitted for further management - Past Medical/Surgical History Diabetic: Yes -: Chron's disease Past Surgical History: Reviewed- Non-Contributory - Family History Family History: Reviewed- Non-Contributory - Social History Smoking Status: Current some day smoker Review of Systems 10-point ROS is otherwise unremarkable Physical Examination - Vital Signs Temperature: 97.2 F Blood Pressure: 112/72 Pulse: 78 Respirations: 18 Pulse Ox (%): 94 - Physical Exam General: Alert, In no apparent distress, Oriented x3 HEENT: Atraumatic, Normocephalic Neck: Supple, 2+ carotid pulse no bruit Respiratory: Clear to auscultation bilaterally, Normal air movement Cardiovascular: No edema, Normal pulses, Regular rate/rhythm Capillary refill: <2 Seconds Gastrointestinal: Soft and benign, W/out hepatosplenomegaly Musculoskeletal: No clubbing, No swelling Integumentary: No rashes, No breakdown Neurological: Normal speech, Normal strength at 5/5 x4 extr, Cranial nerves 3-12 intact, Normal reflexes 2+, Normal affect Lymphatics: No axilla or inguinal lymphadenopathy - Studies Laboratory Data (last 24 hrs) 03/13/24 03/13/24 03/13/24 17:47 17:47 17:47 WBC 12.10 H Hgb 14.2 Hct 40.3 Plt Count 373 PT 13.5 H INR 1.23 Sodium 136 Potassium 3.7 BUN 12 Creatinine 1.54 H Glucose 95 Magnesium 1.9 Total Bilirubin 0.8 AST < 10 L ALT < 14 Alkaline Phosphatase 56 Assessment and Plan - Problems (Diagnosis) (1) Tachycardia Current Visit: Yes Status: Acute Plan: Tachycardia With multiple PVCs We will get a TSH level Beta-aleida as needed Will get an echocardiogram Trend cardiac enzymes CT chest PE protocol was negative for PE Dehydration Acute renal insufficiency Started on IV hydration Monitor closely Leukocytosis noted Will get a UA Started on antibiotic empirically Crohn's disease Not in acute exacerbation Continue home medications and titrate as needed GI/DVT prophylaxis Advanced directive full code Discharge Plan: Home Plan to discharge in: 48 Hours - Advance Directives Does patient have a Living Will: No Does patient have a Durable POA for Healthcare: No - Code Status/Comfort Care Code Status: Full Code Time Spent Managing Pts Care (In Minutes): 48
[2024-03-13] MEDS: NA CHLORIDE 0.9% 1,000 ML IV SCH (22:00)
[2024-03-14 01:40] LABS: Thyroid Stimulating Hormone 6.24 uIU/mL (0.358-3.740)
[2024-03-14 01:51] VITALS: BMI 26.4
[2024-03-14 04:39] LABS: Barbiturates NEGATIVE (NEGATIVE); Benzodiazepines NEGATIVE (NEGATIVE); Cocaine NEGATIVE (NEGATIVE); METHAMPHETAM POSITIVE (NEGATIVE); Methadone NEGATIVE (NEGATIVE); Opiates NEGATIVE (NEGATIVE); Phencyclidine NEGATIVE (NEGATIVE); THC Cannibis NEGATIVE (NEGATIVE)
[2024-03-14 04:40] LABS: Absolute Basophils 0.1 K/uL (0-0.5); Absolute Eosinophils 0.1 K/uL (0-0.5); Absolute Lymphocytes (CBC) 2.9 K/uL (0.7-4.9); Absolute Monocytes 0.7 K/uL (0.1-1.3); Absolute Neutrophil 3.8 K/uL (1.8-8.0); Basophils % 0.7 % (0-1.3); Eosinophils % 1.5 % (0-4.4); Hematocrit 34.4 % (36.0-45.0); Lymphocytes % 38.3 % (15.3-44.8); MCH 31.8 pg (27.0-35.0); MCHC 34.9 g/dL (32.0-36.0); MCV 91.1 fL (80-100); Monocytes % 9.3 % (3.3-12.3); Neutrophils % 50.2 % (41.7-73.7); Nucleated Red Blood Cells % 0.1 % (0-0); RBC Red Blood Cell Count 3.78 M/uL (3.86-4.86); Red Cell Distribution Width 13.3 % (12.1-15.2)
[2024-03-14 04:44] LABS: ALT/SGPT < 14 U/L (13-56); AST/SGOT < 10 U/L (15-37); Albumin 3.3 g/dL (3.4-5.0); Albumin/Globulin Ratio 1.1 (1.1-1.8); Alkaline Phosphatase 43 U/L (45-117); Anion Gap 8.5 mEq/L (5.0-15.0); BUN Blood Urea Nitrogen 12 mg/dL (7-18); Bicarbonate 22 mEq/L (21-32); Bilirubin Total 0.9 mg/dL (0.2-1.0); Globulin 3.1 g/dL (2.3-3.5); Glomerular Filtration Rate 108 ml/min (=/>90); Glucose Level 79 mg/dL (74-106); Potassium 3.5 mEq/L (3.5-5.1); Protein, Total 6.4 g/dL (6.4-8.2); Sodium Level 139 mEq/L (136-145); Troponin High Sensitivity 3.3 pg/mL (<58.9)
[2024-03-14] MEDS ORDERED: POTASSIUM CL SA 10 MEQ TAB PO ONE ×2 (05:19→06:21)
[2024-03-14 05:20] LABS: MPV 7.9 fL (7.6-11.3); Platelets 257 thou/uL (152-406)
[2024-03-14] MEDS: POTASSIUM CL SA 10 MEQ TAB PO ONE (05:21)
[2024-03-14] MEDS: carvediloL 3.125 MG TAB PO SCH (06:00)
[2024-03-14 06:06] LABS: Blood Morphology Comment NOT SEEN (NOT SEEN); Platelet Estimate ADEQ; White Blood Cell Scan OK (OK)
[2024-03-14] MEDS ORDERED: carvediloL 6.25 MG TAB ONE (06:21)
[2024-03-14] MEDS ORDERED: CEFTRIAXONE 1000 MG/VIAL ONE (09:25)
[2024-03-14] MEDS ORDERED: ENOXAPARIN 40 MG/0.4 ML SQ ONE (09:25)
[2024-03-14] MEDS ORDERED: NA CHLORIDE 0.9% 50 ML ONE (09:26)
[2024-03-14] MEDS ORDERED: NA CHLORIDE 0.9% 1,000 ML ONE (09:26)
[2024-03-14] MEDS: CEFTRIAXONE 1,000 MG in NA CHLORIDE 0.9% 50 ML IVPB SCH (10:00)
[2024-03-14] MEDS: ENOXAPARIN 40 MG/0.4 ML SQ SCH (10:18)
[2024-03-14] MEDS ORDERED: ACETAMINOPHEN 325 MG TABLET ONE (11:55)
[2024-03-14] MEDS: ACETAMINOPHEN 325 MG TABLET PO PRN (12:00)
--- NOTE | 2024-03-14 12:50 | P.DS ---
Admission Date: 03/13/24 Discharge Date: 03/14/24 Disposition: ROUTINE DISCHARGE Discharge Condition: FAIR Reason for Admission: SOB / Fatigue - Problems (1) PVC (premature ventricular contraction) Current Visit: Yes Status: Acute (2) Crohn's disease Current Visit: Yes Status: Acute (3) Tachycardia Current Visit: Yes Status: Acute Brief History of Present Illness: 38-year-old female with past medical history of Crohn's disease brought to ER with generalized weakness and shortness of breath , associated with palpitation. Patient denies any chest pain. No fever or chills. No nausea vomiting or diarrhea. Denies any sick contacts. Patient complains of extreme fatigue and getting short winded with minimal exertion. No previous history of CAD. No history of CHF. No lower extremity swelling Patient was assessed in the ER and had a workup with CT PE protocol which was negative for PE. Patient also was noted to have PVCs multiple and was hospitalized for further management. Hospital Course: Patient was placed under observation on the medical floor with telemetry. Patient experienced occasional PVCs for a few hours. No PVCs noted overnight and this morning. Patient reports her shortness of breath and fatigue have resolved. Troponin trended negative. Noted her urine toxicology screen was positive for amphetamine. PVCs probably secondary to amphetamine cardiac stim ulants effect. She was placed on low-dose Coreg to suppress the PVCs. Patient vital signs stable for discharge. She is informed she needs to follow-up with her PCP to arrange for outpatient echocardiogram. Vital Signs/Physical Exam: Temp Pulse Resp BP Pulse Ox 97.3 F 80 17 107/52 L 99 03/14/24 08:00 03/14/24 08:00 03/14/24 08:00 03/14/24 08:00 03/14/24 08:00 General: Alert, In no apparent distress, Oriented x3 HEENT: Mucous membr. moist/pink Neck: Supple, JVD not distended Respiratory: Clear to auscultation bilaterally, Normal air movement Cardiovascular: No edema, Regular rate/rhythm, Normal S1 S2 Gastrointestinal: Normal bowel sounds, Soft and benign, Non-distended, No tenderness Musculoskeletal: No swelling Integumentary: No rashes, No cyanosis Neurological: Normal strength at 5/5 x4 extr Laboratory Data at Discharge: WBC 7.60 thou/uL (4.3-10.9) 03/14/24 04:12 Hgb 12.0 g/dL (12.0-15.0) D 03/14/24 04:12 Hct 34.4 % (36.0-45.0) L 03/14/24 04:12 Plt Count 257 thou/uL (152-406) D 03/14/24 04:12 PT 13.5 SECONDS (9.5-12.5) H 03/13/24 17:47 INR 1.23 03/13/24 17:47 Sodium 139 mEq/L (136-145) 03/14/24 04:12 Potassium 3.5 mEq/L (3.5-5.1) 03/14/24 04:12 BUN 12 mg/dL (7-18) 03/14/24 04:12 Creatinine 0.73 mg/dL (0.55-1.02) 03/14/24 04:12 Glucose 79 mg/dL (74-106) 03/14/24 04:12 Magnesium 1.9 mg/dL (1.6-2.4) 03/13/24 17:47 Total Bilirubin 0.9 mg/dL (0.2-1.0) 03/14/24 04:12 AST < 10 U/L (15-37) L 03/14/24 04:12 ALT < 14 U/L (13-56) 03/14/24 04:12 Alkaline Phosphatase 43 U/L (45-117) L D 03/14/24 04:12 Home Medications: carvediloL [Coreg*] 3.125 mg PO BID 6AM 6PM #60 tab 03/14/24 New Medications: carvediloL [Coreg*] 3.125 mg PO BID 6AM 6PM #60 tab Diet: AHA Activity: Ad ke Followup: Collin Ceballos MD [Primary Care Provider] - 1-2 Weeks Time spent managing pt's care (in minutes): 27
[2024-03-14 13:56] VITALS: BP 115/53; TEMP 98.2
[2024-03-14 15:07] VITALS: O2SAT 100
--- NOTE | 2024-03-15 14:57 | EKG ---
Test Date: 2024-03-13 Test Time: 17:40:10 Contract Admin: SOURAV MEASUREMENT RESULTS: Intervals: Rate: 100 [place]: 142 QRSD: 78 QT: 352 QTc: 454 Griffin: P: 83 [place]: 142 QRS: 74 T: 76 INTERPRETIVE STATEMENTS: Sinus rhythm and premature ventricular complexes or fusion complexes Right atrial enlargement Borderline ECG No previous ECG available for comparison Electronically Signed On 03-15-24 14:51:59 CDT by Tristan Aguilar
== END 2024-03-14 14:28 | disposition home or self-care (01) ==
LOC: ER 17:29 → ERHOLD 21:09 → 4TH 03-14 13:35 → ERHOLD 03-14 13:47
PROVIDERS: ADMIT Family Medicine; ATTEND Internal Medicine
DX: I49.3 Ventricular premature depolarization (principal); R00.0 Tachycardia, unspecified; R06.02 Shortness of breath; R00.2 Palpitations; R53.83 Other fatigue; K50.90 Crohn's disease, unspecified, without complications; R53.1 Weakness; F15.90 Other stimulant use, unspecified, uncomplicated; F17.210 Nicotine dependence, cigarettes, uncomplicated; E86.0 Dehydration; N17.9 Acute kidney failure, unspecified; N28.9 Disorder of kidney and ureter, unspecified; F17.290 Nicotine dependence, other tobacco product, uncomplicated; D72.829 Elevated white blood cell count, unspecified; Z88.0 Allergy status to penicillin; Z88.5 Allergy status to narcotic agent
CPT/HCPCS: 93005; 85025 ×2; 80048; 36415 ×2; 83735; 85610; 85379; 80076; 83605; 84443; 84484 ×4; 84439; 80053; 83880 ×2; 80307; 71275; 71045; 99285; Q9967; J1650; J7030 ×2; J0696; G0378 ×3

== ENCOUNTER 2024-12-24 15:15 | Emergency (ER) | payer BC ==
--- OUTSIDE RECORDS SUMMARY | 2024-12-24 15:21 | XMS REPORT | Continuity of Care Document ---
Author Name Unknown Address [address] [facility] [place] [address] [facility] [place] Address [address] [facility] [place] [address] Care Team Providers Care Textile Screen Maker Name Role Phone Georgina Serrano MD Primary Care Physician [phone] GEORGINA SERRANO Attending Clinician Unavailable Georgina Serrano MD Attending Clinician [phone] Doctor Unassigned, [place] Attending Clinician U Georgina Buckley MD Attending Clinician [phone] Doctor Unassigned, [place] Attending Clinician U Heriberto Angulo - Brandon Attending Clinician Unavailable Nayely DONALDSON, December Attending Clinician UnavailTata Basilio LVN Attending Clinician UnaStormy Costa MD Attending Clinician [phone] Isma Dolan Attending Clinician [phone] STORMY SPENCER Attending Clinician UnavailCira Deal RN Attending Clinician UnavailJuliet Voss MA Attending Clinician UnavailReece Cueto MD Attending Clinician + [phone] Jefferson Barnes DO Attending Clinician [phone] Alex Howard Attending Clinician [phone] Sagar Crespo DO Attending Clinician [phone] Shelia Gamboa Attending Clinician SHELIA DENIS Attending Clinician Unavailable MARJ DOMÍNGUEZ Attending Clinician Unavailable Marj Domínguez MD Attending Clinician Unavailable Luis, Kenroy Dickinson Attending Clinician Unavailable SHELIA DENIS Admitting Clinician Unavailable Payers Payer Name Policy Type Policy Number Effective Date Expirati on Date Source [id number] 2020 00:00:00 [facility] [id number] 2021 00:00:00 Problems Condition Name Condition Details Condition Category Status Onset Date Resolution Date Last Treatment Date Treating Clinician Comments Source Hypothyroi dism Hypothyroi dism Disease Active 8 00:00: 00 [facility] Other chronic pain Other chronic pain Disease Active 8- 00:00: 00 [facility] Abnormal [...] a with regular cycle Disease Active 2019-09 014 00:00: 00 [facility] Tobacco [...] Crohn disease Crohn disease Disease Active 2011-09 0 00:00: 00 [facility] Allergies, Adverse Reactions, Alerts Allergy Name Allergy Type Status Severity Reaction(s) Onset Date Inactive Date Treating Clinician Comments Source PENICILL INS Drug Class Active Unknown-Cmnt 05-06 00:00: 00 [facility] Penicill ins Propensi ty to adverse reaction s Active Unknown - See comments 05-06 00:00: 00 [facility] Penicill [...] ty to adverse reaction s Active Hives 2019-0 5-28 00:00: 00 [facility] PENICILL IN DRUG INGREDI Active Hives 2019-0 5-28 00:00: 00 [facility] Social History Social Habit Start Date Stop Date Quantity Comments Source [facility] of tobacco use Cigarette Smoker [facility] Alcoholic beverage intake 2024-10-21 00:00:00 2024-10-21 00:00:00 Current drinker of alcohol (finding) [facility] Tobacco use and exposure 2024-03-04 00:00:00 2024-03-04 00:00:00 Smokeless tobacco non-user [facility] Alcohol intake 2023-10-21 00:00:00 2023-10-21 00:00:00 Current drinker of alcohol (finding) [facility] History of Social function 2023-08-11 00:00:00 2023-08-11 00:00:00 [facility] Exposure to SARS-CoV-2 (event) 2023-01-25 00:00:00 2023-02-04 07:28:[address] [facility] Tobacco Comment 2022-09-26 00:00:00 2022-09-26 00:00:[address] [facility] Alcohol Comment 2020-07-12 00:00:00 2020-07-12 00:00:[address] [facility] History SDOH Alcohol Frequency 2020-07-12 00:00:00 2020-07-12 00:00:[address] [facility] History SDOH Alcohol Std Drinks 2020-07-12 00:00:00 2020-07-12 00:00:[address] [facility] History SDOH Alcohol Binge 2020-07-12 00:00:00 2020-07-12 00:00:[address] [facility] Sex assigned at 1985 00:00:00 1985 00:00:00 [facility] Smoking Status Start Date Stop Date Source Ex-smoker 2024-03-04 00:00:00 2024-03-04 00:00:00 [facility] Occasional tobacco smoker 2020-07-12 00:00:00 [facility] Medications Ordered Medication Name Filled Medication Name Start Date Stop Date Current Medication? Ordering Clinician Indication Dosage Frequency Signature (SIG) Comments Components Source HYDROcodone -acetaminop hen 10-325 mg tablet 11-17 00:00: 00 Yes [id number] 1{tbl} Take 1 tablet by mouth every 6 (six) hours as needed for Pain (scale 7-10). Indication s: acute pain [facility] lisdexamfet amine (VYVANSE) 50 mg capsule 11-17 00:00: 00 Yes [id number] 50mg Take 1 capsule by mouth every morning. [facility] lisdexamfet amine (VYVANSE) 50 mg capsule 1- 00:00: 00 11-17 00:00 :00 No [id number] 50mg Take 1 capsule by mouth every morning. [facility] HYDROcodone -acetaminop hen 10-325 mg tablet 2023-09- 00:00: 00 11-17 00:00 :00 No [id number] 1{tbl} Take 1 tablet by mouth every 6 (six) hours as needed for Pain (scale 7-10). Indication s: acute pain [facility] lisdexamfet amine (VYVANSE) 50 mg capsule 2023-09 2-02 00:00: 00 10-21 00:00 :00 No [id number] 50mg Take 1 capsule by mouth every morning. [facility] lisdexamfet amine (VYVANSE) 50 mg capsule 2023-09 0- 00:00: 00 08-27 00:00 :00 No [id number] 50mg Take 1 capsule by mouth every morning. [facility] HYDROcodone -acetaminop hen 10-325 mg tablet 2023-09 0-30 00:00: 00 08-27 00:00 :00 No [id number] 1{tbl} Take 1 tablet by mouth every 6 (six) hours as needed for Pain (scale 7-10). Indication s: acute pain [facility] lisdexamfet amine (VYVANSE) 50 mg capsule 9 00:00: 00 07-29 00:00 :00 No [id number] 50mg Take 1 capsule by mouth every morning. [facility] HYDROcodone -acetaminop hen 10-325 mg tablet 8 00:00: 00 07-28 00:00 :00 No [id number] 1{tbl} Take 1 tablet by mouth every 6 (six) hours as needed for Pain (scale 7-10). Indication s: acute pain [facility] lisdexamfet amine (VYVANSE) 50 mg capsule 8- 00:00: 00 06-25 00:00 :00 No [id number] 50mg Take 1 capsule by mouth every morning. [facility] lisdexamfet amine (VYVANSE) 50 mg capsule 04-28 00:00: 00 05-26 00:00 :00 No [id number] 50mg Take 1 capsule by mouth every morning. [facility] HYDROcodone -acetaminop hen 10-325 mg tablet 7- 00:00: 00 05-26 00:00 :00 No [id number] 1{tbl} Take 1 tablet by mouth every 6 (six) hours as needed for Pain (scale 7-10). Indication s: acute pain [facility] lisdexamfet amine (VYVANSE) 50 mg capsule - 00:00: 00 04-28 00:00 :00 No [id number] 50mg Take 1 capsule by mouth every morning. [facility] lisdexamfet amine (VYVANSE) 50 mg capsule 03-04 00:00: 00 03-29 00:00 :00 No [id number] 50mg Take 1 capsule by mouth every morning. [facility] lisdexamfet amine (VYVANSE) 50 mg capsule 5- 00:00: 00 03-04 00:00 :00 No [id number] 50mg Take 1 capsule by mouth every morning. [facility] HYDROcodone -acetaminop hen 10-325 mg tablet 01-19 00:00: 00 03-29 00:00 :00 No [id number] 1{tbl} Take 1 tablet by mouth every 6 (six) hours as needed for Pain (scale 7-10). Indication s: acute pain [facility] lisdexamfet amine (VYVANSE) 50 mg capsule 4- 00:00: 00 01-27 00:00 :00 No [id number] 50mg Take 1 capsule by mouth every morning. [facility] HYDROcodone -acetaminop hen 10-325 mg tablet 3-25 00:00: 00 01-19 00:00 :00 No [id number] 1{tbl} Take 1 tablet by mouth every 6 (six) hours as needed for Pain (scale 7-10). Indication s: acute pain [facility] lisdexamfet amine (VYVANSE) 50 mg capsule 3-25 00:00: 00 01-19 00:00 :00 No [id number] 50mg Take 1 capsule by mouth every morning. [facility] lisdexamfet amine (VYVANSE) 50 mg capsule 2-26 00:00: 00 Yes [id number] 50mg Take 1 capsule by mouth every morning. [facility] lisdexamfet amine 40 mg capsule 10-27 00:00: 00 03-04 00:00 :00 No [id number] 40mg Take 1 capsule by mouth every morning. [facility] HYDROcodone -acetaminop hen 10-325 mg tablet 10-22 00:00: 00 Yes [id number] 1{tbl} Take 1 tablet by mouth every 6 (six) hours as needed for Pain (scale 7-10). Indication s: acute pain [facility] lisdexamfet amine (VYVANSE) 50 mg capsule 10-22 00:00: 00 11-24 00:00 :00 No [id number] 50mg Take 1 capsule by mouth every morning. [facility] HYDROcodone -acetaminop hen 10-325 mg tablet 2022-09 00:00: 00 Yes [id number] 1{tbl} Take 1 tablet by mouth every 6 (six) hours as needed for Pain (scale 7-10). Indication s: acute pain [facility] lisdexamfet amine (VYVANSE) 50 mg capsule 2022-09 00:00: 00 Yes [id number] 50mg Take 1 capsule by mouth every morning. [facility] HYDROcodone -acetaminop hen 10-325 mg tablet 2022-09 00:00: 00 Yes [id number] 1{tbl} Take 1 tablet by mouth every 6 (six) hours as needed for Pain (scale 7-10). Indication s: acute pain [facility] lisdexamfet amine (VYVANSE) 50 mg capsule 2022-09 00:00: 00 Yes [id number] 50mg Take 1 capsule by mouth every morning. [facility] lisdexamfet amine (VYVANSE) 50 mg capsule 2022-09 00:00: 00 08-29 00:00 :00 No [id number] 50mg Take 1 capsule by mouth every morning. [facility] HYDROcodone -acetaminop hen 10-325 mg tablet 2022-09 0-03 00:00: 00 08-29 00:00 :00 No 4647 1{tbl} Take 1 tablet by mouth every 6 (six) hours as needed for Pain (scale 7-10). Indication s: acute pain [facility] lisdexamfet amine (VYVANSE) 50 mg capsule 2022-09 0- 00:00: 00 07-31 00:00 :00 No [id number] 50mg Take 1 capsule by mouth every morning. [facility] lisdexamfet amine (VYVANSE) 50 mg capsule 9 00:00: 00 Yes [id number] 50mg Take 1 capsule by mouth every morning. [facility] HYDROcodone -acetaminop hen 10-325 mg tablet 06-04 00:00: 00 Yes [id number] 1{tbl} Take 1 tablet by mouth every 6 (six) hours as needed for Pain (scale 7-10). Indication s: acute pain [facility] lisdexamfet amine (VYVANSE) 50 mg capsule 8- 00:00: 00 06-04 00:00 :00 No [id number] 50mg Take 1 capsule by mouth every morning. [facility] HYDROcodone -acetaminop hen 10-325 mg tablet 8- 00:00: 00 06-04 00:00 :00 No [id number] 1{tbl} Take 1 tablet by mouth every 6 (six) hours as needed for Pain (scale 7-10). Indication s: acute pain [facility] lisdexamfet amine (VYVANSE) 50 mg capsule 04-08 00:00: 00 Yes [id number] 50mg Take 1 capsule by mouth every morning. [facility] HYDROcodone -acetaminop hen 10-325 mg tablet 7- 00:00: 00 Yes [id number] 1{tbl} Take 1 tablet by mouth every 6 (six) hours as needed for Pain (scale 7-10). Indication s: acute pain [facility] lisdexamfet amine (VYVANSE) 50 mg capsule 2022-0 -12 00:00: 00 Yes [id number] 50mg Take 1 capsule by mouth every morning. [facility] HYDROcodone -acetaminop hen 10-325 mg tablet 2022-0 6-12 00:00: 00 Yes [id number] 1{tbl} Take 1 tablet by mouth every 6 (six) hours as needed for Pain (scale 7-10). Indication s: acute pain [facility] lisdexamfet amine (VYVANSE) 50 mg capsule 0 5-17 00:00: 00 03-10 00:00 :00 No [id number] 50mg Take 1 capsule by mouth every morning. [facility] HYDROcodone -acetaminop hen 10-325 mg tablet 17 00:00: 00 03-10 00:00 :00 No [id number] 1{tbl} Take 1 tablet by mouth every 6 (six) hours as needed for Pain (scale 7-10). Indication s: acute pain [facility] lisdexamfet amine (VYVANSE) 50 mg capsule 2022-0 -20 00:00: 00 02-12 00:00 :00 No [id number] 50mg Take 1 capsule by mouth every morning. [facility] HYDROcodone -acetaminop hen 10-325 mg tablet 2022-0 4-20 00:00: 00 02-12 00:00 :00 No [id number] 1{tbl} Take 1 tablet by mouth every 6 (six) hours as needed for Pain (scale 7-10). Indication s: acute pain [facility] lisdexamfet amine (VYVANSE) 50 mg capsule 0 3-22 00:00: 00 01-15 00:00 :00 No [id number] 50mg Take 1 capsule by mouth every morning. [facility] HYDROcodone -acetaminop hen 10-325 mg tablet 2022-0 3-22 00:00: 00 01-15 00:00 :00 No [id number] 1{tbl} Take 1 tablet by mouth every 6 (six) hours as needed for Pain (scale 7-10). Indication s: acute pain [facility] lisdexamfet amine (VYVANSE) 50 mg capsule 11-18 00:00: 00 12-17 00:00 :00 No [id number] 50mg Take 1 capsule by mouth every morning. [facility] HYDROcodone -acetaminop hen 10-325 mg tablet 11-18 00:00: 00 12-17 00:00 :00 No [id number] 1{tbl} Take 1 tablet by mouth every 6 (six) hours as needed for Pain (scale 7-10). Indication s: acute pain [facility] lisdexamfet amine (VYVANSE) 50 mg capsule 10-21 00:00: 00 11-15 00:00 :00 No [id number] 50mg Take 1 capsule by mouth every morning. [facility] HYDROcodone -acetaminop hen 10-325 mg tablet 10-21 00:00: 00 11-15 00:00 :00 No 4647 1{tbl} Take 1 tablet by mouth every 6 (six) hours as needed for Pain (scale 7-10). Indication s: acute pain [facility] lisdexamfet amine (VYVANSE) 50 mg capsule 2021-09 00:00: 00 10-19 00:00 :00 No [id number] 50mg Take 1 capsule by mouth every morning. [facility] HYDROcodone -acetaminop hen 10-325 mg tablet 2021-09 00:00: 00 10-19 00:00 :00 No [id number] 1{tbl} Take 1 tablet by mouth every 6 (six) hours as needed for Pain (scale 7-10). Indication s: acute pain [facility] esomeprazol e 40 mg capsule 2021-09 00:00: 00 Yes TAKE ONE (1) CAPSULE(S) BY MOUTH IN THE MORNING. [facility] mesalamine 500 mg CR capsule 2021-09 00:00: 00 Yes TAKE FOUR (4) CAPSULE(S) BY MOUTH TWICE A DAY. [facility] famotidine 20 mg tablet 2021-09 2 00:00: 00 Yes 20mg Take 1 tablet [...] 2021-09 00:00: 00 09-19 00:00 :00 No [id number] 50mg Take 1 capsule by mouth every [...] lisdexamfet amine (VYVANSE) 50 mg capsule 2021-09 0- 00:00: 00 Yes [id number] 50mg Take 1 capsule by mouth every morning. [facility] HYDROcodone -acetaminop hen 10-325 mg tablet 2021-09 0- 00:00: 00 Yes [id number] 1{tbl} Take 1 tablet by mouth every 6 (six) hours as needed for Pain (scale 7-10). Indication s: acute pain [facility] lisdexamfet amine (VYVANSE) 50 mg capsule 06-26 00:00: 00 Yes [id number] 50mg Take 1 capsule by mouth every morning. [facility] HYDROcodone -acetaminop hen 10-325 mg tablet 06-26 00:00: 00 Yes [id number] 1{tbl} Take 1 tablet by mouth every 6 (six) hours as needed for Pain (scale 7-10). Indication s: acute pain [facility] lisdexamfet amine (VYVANSE) 50 mg capsule 05-30 00:00: 00 Yes [id number] 50mg Take 1 capsule by mouth every morning. [facility] HYDROcodone -acetaminop hen 10-325 mg tablet 05-30 00:00: 00 Yes [id number] 1{tbl} Take 1 tablet by mouth every 6 (six) hours as needed for Pain (scale 7-10). Indication s: acute pain [facility] lisdexamfet amine (VYVANSE) 50 mg capsule 05-01 00:00: 00 05-30 00:00 :00 No [id number] 50mg Take 1 capsule by mouth every morning. [facility] HYDROcodone -acetaminop hen 10-325 mg tablet 05-01 00:00: 00 05-30 00:00 :00 No 4647 1{tbl} Take 1 tablet by mouth every 6 (six) hours as needed for Pain (scale 7-10). Indication s: acute pain [facility] lisdexamfet amine (VYVANSE) 50 mg capsule 04-08 00:00: 00 05-01 00:00 :00 No [id number] 50mg Take 1 capsule by mouth every morning. [facility] HYDROcodone -acetaminop hen 10-325 mg tablet 04-08 00:00: 00 05-01 00:00 :00 No 4647 1{tbl} Take 1 tablet by mouth every 6 (six) hours as needed for Pain (scale 7-10). Indication s: acute pain [facility] HYDROcodone -acetaminop hen 10-325 mg tablet 2019-09 00:00: 00 10-20 00:00 :00 No 4647 1{tbl} Take 1 tablet by mouth every 6 (six) hours as needed for Pain (scale 7-10) for up to 7 days. Indication s: acute pain [facility] benzonatate 100 mg capsule 2019-09 00:00: 00 12-14 00:00 :00 No [id number] 100mg Take 1 capsule by mouth 3 (three) times daily as needed for Cough. [facility] chlorphenir amine 4 mg tablet 2019-09 00:00: 00 12-14 00:00 :00 No [id number] 4mg Take 1 tablet by mouth every 6 (six) hours as needed for Allergies or Runny nose. [facility] multivitami n capsule 2019-09 00:00: 00 12-14 00:00 :00 No [id number] 1{capsu le} Take 1 capsule by mouth daily. [facility] calcium-mag nesium-zinc 333-133-8.3 mg Tab 2019-09 00:00: 00 12-14 00:00 :00 No [id number] Take as directed for daily dose. [facility] ketorolac 10 mg tablet 2019-09 00:00: 00 12-14 00:00 :00 No [id number] 10mg Take 1 tablet by mouth every 6 (six) hours as needed for Pain (scale 7-10). [facility] ondansetron 4 mg disintegrat ing tablet 2019-09 00:00: 00 12-14 00:00 :00 No [id number] 4mg Take 1 tablet by mouth every 8 (eight) hours as needed for Nausea and Vomiting (N/V). [facility] methylpheni date HCl 54 mg 24 hr tablet 2019-09 00:00: 00 10-17 00:00 :00 No [id number] 54mg Take 1 tablet by mouth every morning. [facility] omeprazole 40 mg capsule 2020-1 2-17 00:00: 00 10-17 00:00 :00 No [id number] 40mg Take 1 capsule by mouth daily. [facility] traMADoL 50 mg tablet 2019-09 2 00:00: 00 07-31 00:00 :00 No [id number] 50mg Take 1 tablet by mouth every 8 (eight) hours as needed for Pain (scale 7-10). Indication s: acute pain [facility] ciprofloxac in HCl 500 mg tablet 2019-09 00:00: 00 12-14 00:00 :00 No [id number] 500mg Take 1 tablet by mouth 2 (two) times daily. [facility] hyoscyamine (LEVSIN) 0.125 mg tablet 2019-09 00:00: 00 09-26 00:00 :00 No [id number] 9108 .125mg Take 1 tablet by mouth 4 (four) times daily as needed for Pain (scale 1-3) or Pain (scale 4-6). [facility] buPROPion XL 300 mg 24 hr tablet 2019-09 0-14 00:00: 00 08-21 00:00 :00 No [id number] 300mg Take 1 tablet by mouth daily. [facility] Immunizations Ordered Immunization Name Filled Immunization Name Date Status Comments Source Influenza Virus Vaccine 2020-07-13 00:00:[address] [facility] Influenza Virus Vaccine 2020-07-13 00:00:[address] [facility] Influenza Virus Vaccine 2020-07-13 00:00:[address] [facility] Influenza Virus Vaccine 2020-07-13 00:00:[address] [facility] Influenza Virus Vaccine 2020-07-13 00:00:[address] [facility] Influenza Virus Vaccine 2020-07-13 00:00:[address] [facility] Influenza Virus Vaccine 2020-07-13 00:00:[address] [facility] Influenza Virus Vaccine 2020-07-13 00:00:[address] [facility] Influenza Virus Vaccine 2020-07-13 00:00:[address] [facility] Influenza Virus Vaccine 2020-07-13 00:00:[address] [facility] Influenza Virus Vaccine 2020-07-13 00:00:[address] [facility] Influenza Virus Vaccine 2020-07-13 00:00:[address] [facility] Influenza Virus Vaccine 2020-07-13 00:00:[address] [facility] Influenza Virus Vaccine 2020-07-13 00:00:[address] [facility] Influenza Virus Vaccine 2020-07-13 00:00:[address] [facility] Influenza Virus Vaccine 2020-07-13 00:00:[address] [facility] Influenza Virus Vaccine 2020-07-13 00:00:[address] [facility] Influenza Virus Vaccine 2020-07-13 00:00:[address] [facility] Influenza Virus Vaccine 2020-07-13 00:00:[address] [facility] Influenza Virus Vaccine 2020-07-13 00:00:00 Completed Influenza Virus Vaccine 2020-07-13 00:00:00 Completed Influenza Virus Vaccine 2020-07-13 00:00:00 Completed Influenza Virus Vaccine 2020-07-13 00:00:00 Completed Influenza Virus Vaccine 2020-07-13 00:00:[address] [facility] Influenza Virus Vaccine 2020-07-13 00:00:[address] [facility] Influenza Virus Vaccine Unknown Completed [facility] Influenza Virus Vaccine Unknown Completed [facility] Influenza Virus Vaccine Unknown Completed [facility] Influenza Virus Vaccine Unknown Completed [facility] Influenza Virus Vaccine Unknown Completed [facility] Influenza Virus Vaccine Unknown Completed [facility] Influenza Virus Vaccine Unknown Completed [facility] Influenza Virus Vaccine Unknown Completed [facility] Influenza Virus Vaccine Unknown Completed [facility] Influenza Virus Vaccine Unknown Completed [facility] Influenza Virus Vaccine Unknown Completed [facility] Influenza Virus Vaccine Unknown Completed [facility] Influenza Virus Vaccine Unknown Completed [facility] Influenza Virus Vaccine Unknown Completed [facility] Influenza Virus Vaccine Unknown Completed [facility] Influenza Virus Vaccine Unknown Completed [facility] Influenza Virus Vaccine Unknown Completed [facility] Influenza Virus Vaccine Unknown Completed [facility] Influenza Virus Vaccine Unknown Completed [facility] Influenza Virus Vaccine Unknown Completed [facility] Influenza Virus Vaccine Unknown Completed [facility] Influenza Virus Vaccine Unknown Completed [facility] Influenza Virus Vaccine Unknown Completed [facility] Influenza Virus Vaccine Unknown Completed [facility] Influenza Virus Vaccine Unknown Completed [facility] Influenza Virus Vaccine Unknown Completed [facility] Influenza Virus Vaccine Unknown Completed [facility] Influenza Virus Vaccine Unknown Completed [facility] Influenza Virus Vaccine Unknown Completed [facility] Influenza Virus Vaccine Unknown Completed [facility] Influenza Virus Vaccine Unknown Completed [facility] Influenza Virus Vaccine Unknown Completed [facility] Vital Signs Vital Name Observation Time Observation Value Comments S ource Systolic blood pressure 2024-10-21 19:06:00 134 mm[Hg] [facility] Diastolic blood pressure 2024-10-21 19:06:00 85 mm[Hg] [facility] Heart rate 2024-10-21 19:06:00 98 /min [facility] Body height 2024-10-21 19:06:00 177.8 cm [facility] Body weight 2024-10-21 19:06:00 86.456 kg [facility] BMI 2024-10-21 19:06:00 27.35 kg/m2 [facility] Oxygen saturation in Arterial blood by Pulse oximetry 2024-10-21 19:06:00 99 /min [facility] Systolic blood pressure 2024-03-04 14:36:00 123 mm[Hg] [facility] Diastolic blood pressure 2024-03-04 14:36:00 67 mm[Hg] [facility] Heart rate 2024-03-04 14:36:00 108 /min [facility] Body height 2024-03-04 14:36:00 177.8 cm [facility] Body weight 2024-03-04 14:36:00 84.46 kg [facility] BMI 2024-03-04 14:36:00 26.72 kg/m2 [facility] Oxygen saturation in Arterial blood by Pulse oximetry 2024-03-04 14:36:00 99 /min [facility] Systolic blood pressure 2023-08-11 13:22:00 123 mm[Hg] [facility] Diastolic blood pressure 2023-08-11 13:22:00 69 mm[Hg] [facility] Heart rate 2023-08-11 13:22:00 89 /min [facility] Respiratory rate 2023-08-11 13:22:00 18 /min [facility] Body height 2023-08-11 13:22:00 177.8 cm [facility] Body weight 2023-08-11 13:22:00 92.579 kg [facility] BMI 2023-08-11 13:22:00 29.29 kg/m2 [facility] Oxygen saturation in Arterial blood by Pulse oximetry 2023-08-11 13:22:00 100 /min [facility] Systolic blood pressure 2023-02-04 13:17:00 127 mm[Hg] [facility] Diastolic blood pressure 2023-02-04 13:17:00 72 mm[Hg] [facility] Heart rate 2023-02-04 13:17:00 94 /min [facility] Body temperature 2023-02-04 13:17:[address] [facility] Respiratory rate 2023-02-04 13:17:00 16 /min [facility] Body height 2023-02-04 13:17:00 177.8 cm [facility] Body weight 2023-02-04 13:17:00 96.798 kg [facility] BMI 2023-02-04 13:17:00 30.62 kg/m2 [facility] Oxygen saturation in Arterial blood by Pulse oximetry 2023-02-04 13:17:00 100 /min [facility] Systolic blood pressure 2023-01-21 13:07:00 138 mm[Hg] [facility] Diastolic blood pressure 2023-01-21 13:07:00 84 mm[Hg] [facility] Heart rate 2023-01-21 13:07:00 116 /min [facility] Body height 2023-01-21 13:07:00 177.8 cm [facility] 2023-01-21 13:07:00 96.163 kg [facility] BMI 2023-01-21 13:07:00 30.42 kg/m2 [facility] Oxygen saturation in Arterial blood by Pulse oximetry 2023-01-21 13:07:00 100 /min [facility] Systolic blood pressure 2022-09-26 18:21:00 132 mm[Hg] [facility] Diastolic blood pressure 2022-09-26 18:21:00 82 mm[Hg] [facility] Heart rate 2022-09-26 18:21:00 87 /min [facility] Body height 2022-09-26 18:21:00 177.8 cm [facility] Body weight 2022-09-26 18:21:00 96.979 kg [facility] BMI 2022-09-26 18:21:00 30.68 kg/m2 [facility] Oxygen saturation in Arterial blood by Pulse oximetry 2022-09-26 18:21:00 100 /min [facility] Systolic blood pressure 2022-05-01 12:08:00 104 mm[Hg] [facility] Diastolic blood pressure 2022-05-01 12:08:00 68 mm[Hg] [facility] Heart rate 2022-05-01 12:08:00 80 /min [facility] Body weight 2022-05-01 12:08:00 96.026 kg [facility] BMI 2022-05-01 12:08:00 30.38 kg/m2 [facility] Procedures Procedure Date / Time Performed Performing Clinicia n Source [facility] PATIENT FINANCIAL POLICY 2023-01-21 13:07:05 Doctor Unassigned, Sunbright [facility] CONSENT/REFUSAL FOR DIAGNOSIS AND TREATMENT 2022-05-01 12:16:25 Doctor Unassigned, Sunbright [facility] Encounters Start Date/Time End Date/Time Encounter Type Admission Type Attending Clinicians Care Facility Care Department Encounter ID Source 2021-07-28 12:39:54 Emergency [facility] [id number] [facility] 2025-04-14 07:30:00 2025-04-14 07:30:00 Outpatient GEORGINA BLANTON [facility] [id number] [facility] 2024-11-17 00:00:00 2024-11-17 10:41:16 [facility] 1.2.840.114 350.1.13.10 4.2.7.2.686 [id number] 044 [id number] [facility] 2024-10-21 13:15:00 2024-10-21 13:30:00 [facility] 1.2.840.114 350.1.13.10 4.2.7.2.686 [id number] 044 [id number] [facility] 2024-10-21 13:15:00 2024-10-21 13:15:00 Outpatient R GEORGINA SERRANO [facility] [id number] [facility] 2024-10-13 00:00:00 2024-10-21 09:50:57 Telephone [facility]?NAIMA [facility] 1.2.840.114 350.1.13.10 4.2.7.2.686 [id number] 044 [id number] [facility] 2024-07-29 00:00:00 2024-09-04 18:26:39 Patient Secure Msg Doctor Unassigned, Sunbright Doctor Unassigned, Sunbright [facility] 1.2.840.114 350.1.13.10 4.2.7.2.686 [id number] 044 [id number] [facility] 2024-08-27 00:00:00 2024-08-30 06:16:20 Refill [facility] 1.2.840.114 350.1.13.10 4.2.7.2.686 [id number] 044 [id number] [facility] 2024-07-29 00:00:00 2024-07-29 12:44:17 Telephone Georgina Serrano [facility]?NAIAM [facility] 1.2840.114 350.1.13.10 4.2.7.2.686 [id number] 044 [id number] [facility] 2024-07-28 00:00:00 2024-07-28 09:23:59 Telephone Georgina Serrano [facility] 1.2840.114 350.1.13.10 4.2.7.2.686 [id number] 044 [id number] [facility] 2024-06-29 00:00:00 2024-06-29 13:52:31 Patient Secure Msg Doctor Unassigned, Sunbright Doctor Unassigned, Sunbright [facility] 1.2840.114 350.1.13.10 4.2.7.2.686 [id number] 044 [id number] [facility] 2024-06-28 00:00:00 2024-06-28 11:26:22 Patient Secure Msg Doctor Unassigned, Sunbright Doctor Unassigned, Sunbright [facility] 1.2840.114 350.1.13.10 4.2.7.2.686 [id number] 044 [id number] [facility] 2024-06-25 00:00:00 2024-06-28 06:33:07 Refill [facility] 1.2840.114 350.1.13.10 4.2.7.2.686 [id number] 044 [id number] [facility] 2024-05-26 00:00:00 2024-05-26 07:26:02 Refill [facility] 1.2840.114 350.1.13.10 4.2.7.2.686 [id number] 044 [id number] [facility] 2024-04-26 00:00:00 2024-04-28 06:28:32 Telephone [facility] 1.2.840.114 350.1.13.10 4.2.7.2.686 [id number] 044 [id number] [facility] 2024-03-29 00:00:00 2024-03-29 14:02:56 [facility] 1.2.840.114 350.1.13.10 4.2.7.2.686 [id number] 044 [id number] [facility] 2024-03-16 00:00:00 2024-03-17 09:23:51 Telephone Georgina Serrano [facility] 1.2.840.114 350.1.13.10 4.2.7.2.686 [id number] 044 [id number] [facility] 2024-03-04 09:45:00 2024-03-04 10:00:00 Office Visit [facility] 1.2.840.114 350.1.13.10 4.2.7.2.686 [id number] [id number] [facility] 2024-03-04 09:45:00 2024-03-04 09:45:00 Outpatient R GEORGINA SERRANO [facility] [id number] [facility] 2024-03-01 00:00:00 2024-03-01 15:58:50 Refill [facility] 1.2.840.114 350.1.13.10 4.2.7.2.686 [id number] [id number] [facility] 2024-01-28 00:00:00 2024-01-28 00:00:00 Patient Secure Msg Doctor Unassigned, Sunbright [facility] 1.2840.114 350.1.13.10 4.2.7.2.686 [id number] 044 [id number] [facility] 2024-01-20 00:00:00 2024-01-20 00:00:00 Refill [facility]err[facility] 1.2840.114 350.1.13.10 4.2.7.2.686 [id number] [id number] [facility] 2023-11-24 00:00:00 2023-11-24 00:00:00 Refill [facility]err[facility] 1.2840.114 350.1.13.10 4.2.7.2.686 [id number] 044 [id number] [facility] 2023-10-26 00:00:00 2023-10-26 00:00:00 Patient Secure Msg Doctor Unassigned, Sunbright [facility] 1.2840.114 350.1.13.10 4.2.7.2.686 [id number] 044 [id number] [facility] 2023-10-22 00:00:00 2023-10-22 00:00:00 Refill [facility]err[facility] 1.2840.114 350.1.13.10 4.2.7.2.686 [id number] 044 [id number] [facility] 2023-09-24 00:00:00 2023-09-24 00:00:00 Refill [facility]err[facility] 1.2840.114 350.1.13.10 4.2.7.2.686 [id number] 044 [id number] [facility] 2023-08-29 00:00:00 2023-08-29 00:00:00 Refill Georgina Serrano [facility]?NAIMA [facility] 1.284.114 350.1.13.10 4.2.7.2.686 [id number] 044 [id number] [facility] 2023-08-11 08:30:00 2023-08-11 08:45:00 Hand Etcher Visit Lab, Heriberto Taylor [facility] 1.284.114 350.1.13.10 4.2.7.2.686 [id number] [facility] 2023-08-11 07:30:00 2023-08-11 08:00:00 [facility] 1.84.114 350.1.13.10 4.2.7.2.686 [id number] 044 [id number] [facility] 2023-08-11 07:30:00 2023-08-11 07:51:33 Outpatient R GEORGINA SERRANO [facility] [id number] [facility] 2023-08-04 00:00:00 2023-08-04 00:00:00 Pre Visit Outreach [facility], Brenda L [facility] 1.84.114 350.1.13.10 4.2.7.2.686 [id number] [facility] 2023-08-01 00:00:00 2023-08-01 00:00:00 Refill [facility] 1.84.114 350.1.13.10 4.2.7.2.686 [id number] 044 [id number] [facility] 2023-07-31 00:00:00 2023-07-31 00:00:00 Patient Secure Msg Doctor Unassigned, Sunbright [facility] 1.2840.114 350.1.13.10 4.2.7.2.686 [id number] 044 [id number] [facility] 2023-07-29 00:00:00 2023-07-29 00:00:00 Refill Georgina Serrano [facility] 1.2840.114 350.1.13.10 4.2.7.2.686 [id number] 044 [id number] [facility] 2023-07-01 00:00:00 2023-07-01 00:00:00 Refill Tucker Georgina [facility] OFFICE [facility] 1.2840.114 350.1.13.10 4.2.7.2.686 [id number] 044 [id number] [facility] 2023-06-04 00:00:00 2023-06-04 00:00:00 Refill [facility] 1.2840.114 350.1.13.10 4.2.7.2.686 [id number] 044 [id number] [facility] 2023-05-28 00:00:00 2023-05-28 00:00:00 Patient Secure Msg Doctor Unassigned, Sunbright [facility] OFFICE [facility] 1.2840.114 350.1.13.10 4.2.7.2.686 [id number] 044 [id number] [facility] 2023-05-05 00:00:00 2023-05-05 00:00:00 Refill [facility] 1.2840.114 350.1.13.10 4.2.7.2.686 [id number] 044 [id number] [facility] 2023-04-08 00:00:00 2023-04-08 00:00:00 Refill [facility] 1.2.840.114 350.1.13.10 4.2.7.2.686 [id number] 044 [id number] [facility] 2023-03-10 00:00:00 2023-03-10 00:00:00 [facility] 1.2.840.114 350.1.13.10 4.2.7.2.686 [id number] [id number] [facility] 2023-03-03 00:00:00 2023-03-03 00:00:00 Telephone Stormy Spencer [facility] 1.2.840.114 350.1.13.10 4.2.7.2.686 [id number] [facility] 2023-02-12 00:00:00 2023-02-12 00:00:00 [facility] 1.2.840.114 350.1.13.10 4.2.7.2.686 [id number] 044 [id number] [facility] 2023-02-08 00:00:00 2023-02-08 00:00:00 Case Management Isma Mares [facility] 1.2.840.114 350.1.13.10 4.2.7.2.686 [id number] [facility] 2023-02-06 00:00:00 2023-02-06 00:00:00 Patient Secure Msg [facility] 1.2.840.114 350.1.13.10 4.2.7.2.686 [id number] [id number] [facility] 2023-02-04 09:29:03 2023-02-04 23:59:00 Outpatient R STORMY SPENCER [facility] [id number] [facility] 2023-02-04 08:15:00 2023-02-04 08:50:06 Office Visit Stormy Spencer [facility] N[facility] 1..114 350.1.13.10 4.2.7.2.686 [id number] [facility] 2023-01-22 00:00:00 2023-01-22 00:00:00 Patient Secure Msg Serr[facility] 1..114 350.1.13.10 4.2.7.2.686 [id number] 044 [id number] [facility] 2023-01-21 08:30:00 2023-01-21 08:45:00 Hand Etcher Visit Lab, [facility]iberto [facility] 1.114 350.1.13.10 4.2.7.2.686 [id number] [facility] 2023-01-21 08:15:00 2023-01-21 08:30:38 Outpatient R GEORGINA SERRANO [facility] [id number] [facility] 2023-01-21 08:15:00 2023-01-21 08:30:00 [facility] 1.114 350.1.13.10 4.2.7.2.686 [id number] 044 [id number] [facility] 2023-01-21 00:00:00 2023-01-21 00:00:00 Orders Only Doctor Unassigned, Sunbright [facility] 1..114 350.1.13.10 4.2.7.2.686 [id number] [facility] 2023-01-15 00:00:00 2023-01-15 00:00:00 Patient Secure [facility] 1.2.840.114 350.1.13.10 4.2.7.2.686 [id number] 044 [id number] [facility] 2023-01-15 00:00:00 2023-01-15 00:00:00 Refill Ziyad Cira [facility] 1.2840.114 350.1.13.10 4.2.7.2.686 [id number] 044 [id number] [facility] 2022-12-17 00:00:00 2022-12-17 00:00:00 Patient Secure Georgina Serrano [facility] 1.0.114 350.1.13.10 4.2.7.2.686 [id number] 044 [id number] [facility] 2022-12-17 00:00:00 2022-12-17 00:00:00 Refill Ken Gonzalezon New [facility] 1.20.114 350.1.13.10 4.2.7.2.686 [id number] 044 [id number] [facility] 2022-11-15 00:00:00 2022-11-15 00:00:00 Refill Doctor Unassigned, Sunbright [facility] 1.2840.114 350.1.13.10 4.2.7.2.686 [id number] 044 [id number] [facility] 2022-11-12 07:30:00 2022-11-12 07:30:00 Outpatient R SERRANO GEORGINA [facility] [id number] [facility] 2022-10-19 00:00:00 2022-10-19 00:00:00 Refill Doctor Unassigned, Sunbright [facility] 1.2840.114 350.1.13.10 4.2.7.2.686 [id number] 044 [id number] [facility] 2022-09-26 12:30:00 2022-09-26 12:45:00 Office Visit Georgina Serrano [facility] 1.2.840.114 350.1.13.10 4.2.7.2.686 [id number] 044 [id number] [facility] 2022-09-26 12:30:00 2022-09-26 12:30:00 Outpatient R SERRANOGEORGINA HAGER [facility] [id number] [facility] 2022-09-22 00:00:00 2022-09-22 00:00:00 Refill Doctor Unassigned, Sunbright [facility] 1.2.840.114 350.1.13.10 4.2.7.2.686 [id number] 044 [id number] [facility] 2022-09-19 00:00:00 2022-09-19 00:00:00 Refill Doctor Unassigned, Sunbright [facility] 1.2.840.114 350.1.13.10 4.2.7.2.686 [id number] 044 [id number] [facility] 2022-09-11 00:00:00 2022-09-11 00:00:00 Patient Secure Msg Doctor Unassigned, Sunbright [facility] 1.2.840.114 350.1.13.10 4.2.7.2.686 [id number] 044 [id number] [facility] 2022-08-21 00:00:00 2022-08-21 00:00:00 Refill Doctor Unassigned, Sunbright [facility] 1.2.840.114 350.1.13.10 4.2.7.2.686 [id number] 044 [id number] [facility] 2022-07-25 00:00:00 2022-07-25 00:00:00 Refill Reece Marroquin [facility] 1.84.114 350.1.13.10 4.2.7.2.686 [id number] 044 [id number] [facility] 2022-06-26 00:00:00 2022-06-26 00:00:00 Refill Doctor Unassigned, Sunbright [facility] 1.84.114 350.1.13.10 4.2.7.2.686 [id number] 044 [id number] [facility] 2022-05-30 00:00:00 2022-05-30 00:00:00 Refill Doctor Unassigned, Sunbright [facility] 1.84114 350.1.13.10 4.2.7.2.686 [id number] [id number] [facility] 2022-05-01 07:00:00 2022-05-01 07:15:00 [facility] 1.84114 350.1.13.10 4.2.7.2.686 [id number] 044 [id number] [facility] 2022-05-01 07:00:00 2022-05-01 07:00:00 Outpatient R GEORGINA SERRANO [facility] [id number] [facility] 2022-05-01 00:00:00 2022-05-01 00:00:00 Orders Only Doctor Unassigned, Sunbright [facility] 1.114 350.1.13.10 4.2.7.2.686 [id number] [facility] 2022-04-19 00:00:00 2022-04-19 00:00:00 Patient Secure Msg Doctor Unassigned, Sunbright [facility] 1.84114 350.1.13.10 4.2.7.2.686 [id number] [id number] [facility] 2022-04-08 00:00:00 2022-04-08 00:00:00 Refill Doctor Unassigned, Sunbright [facility] 1.2.840.114 350.1.13.10 4.2.7.2.686 [id number] 044 [id number] [facility] 2022-04-05 00:00:00 2022-04-05 00:00:00 Refill Doctor Unassigned, Sunbright [facility] 1.2.840.114 350.1.13.10 4.2.7.2.686 [id number] 044 [id number] [facility] 2022-03-10 00:00:00 2022-03-10 00:00:00 Refill Doctor Unassigned, Sunbright [facility] 1.2.840.114 350.1.13.10 4.2.7.2.686 [id number] 044 [id number] [facility] 2022-02-09 00:00:00 2022-02-09 00:00:00 Refill Doctor Unassigned, Sunbright [facility] [place] [facility] 1.2.840.114 350.1.13.10 4.2.7.2.686 [id number] [id number] [facility] 2022-01-14 00:00:00 2022-01-14 00:00:00 Refill Doctor Unassigned, [place] [facility] [place] [facility] 1.2.840.114 350.1.13.10 4.2.7.2.686 [id number] [facility] 2021-12-14 00:00:00 2021-12-14 00:00:00 Refill Doctor Unassigned, [place] [facility] [place] [facility] 1..840.114 350.1.13.10 4.2.7.2.686 [id number] [id number] [facility] 2021-11-15 00:00:00 2021-11-15 00:00:00 Refill Doctor Unassigned, [place] 1..840.114 350.1.13.10 4.2.7.2.686 [id number] [id number] [facility] 2021-10-22 00:00:00 2021-10-22 00:00:00 Refill Doctor Unassigned, [place] [facility] 1..840.114 350.1.13.10 4.2.7.2.686 [id number] [facility] 2021-09-20 07:30:00 2021-09-20 07:45:00 Hand Etcher Visit Lab, Heriberto Serrano [facility] 1..840.114 350.1.13.10 4.2.7.2.686 [id number] [facility] 2021-09-20 07:15:00 2021-09-20 07:33:22 Outpatient GEORGINA BLANTON [facility] [id number] [facility] 2021-09-20 07:15:00 2021-09-20 07:30:00 Office Visit Georgina Serrano [facility] 1..840.114 350.1.13.10 4.2.7.2.686 [id number] [id number] [facility] 2021-09-20 07:15:00 2021-09-20 07:15:00 Outpatient GEORGINA BLANTON [facility] [id number] [facility] 2021-09-20 00:00:00 2021-09-20 00:00:00 Refill Doctor Unassigned, [place] [facility] ONE 1.0.114 350.1.13.10 4.2.7.2.686 [id number] [id number] [facility] 2021-09-17 00:00:00 2021-09-17 00:00:00 Refill Doctor Unassigned, [place] [facility] ONE 1.0.114 350.1.13.10 4.2.7.2.686 [id number] [id number] [facility] 2021-09-03 00:00:00 2021-09-03 00:00:00 Patient Secure Msg Doctor Unassigned, [place] [facility] 1.114 350.1.13.10 4.2.7.2.686 [id number] [id number] [facility] 2021-08-26 00:00:00 2021-08-26 00:00:00 Refill Doctor Unassigned, [place] [facility] ONE 1..114 350.1.13.10 4.2.7.2.686 [id number] [id number] [facility] 2021-07-29 00:00:00 2021-07-29 00:00:00 Refill Doctor Unassigned, [place] [facility] ONE .114 350.1.13.10 4.2.7.2.686 [id number] [id number] [facility] 2021-07-27 00:00:00 2021-07-27 00:00:00 Refill Doctor Unassigned, [facility] OFF[facility] ONE 1.114 350.1.13.10 4.2.7.2.686 [id number] 044 [id number] [facility] 2021-07-25 00:00:00 2021-07-25 00:00:00 Refill Doctor Unassigned, [facility] Building One 1.2840.114 350.1.13.10 4.2.7.2.686 [id number] [facility] 2021-06-29 00:00:00 2021-06-29 00:00:00 Refill Doctor Unassigned, [facility] One 1.2840.114 350.1.13.10 4.2.7.2.686 [id number] 044 [id number] [facility] 2021-06-29 00:00:00 2021-06-29 00:00:00 Refill Doctor Unassigned, [facility] One 1.840.114 350.1.13.10 4.2.7.2.686 [id number] 044 [id number] [facility] 2021-06-02 00:00:00 2021-06-02 00:00:00 Refill Doctor Unassigned, [facility] One 1.2840.114 350.1.13.10 4.2.7.2.686 [id number] 044 [id number] [facility] 2021-05-22 00:00:00 2021-05-22 00:00:00 Orders Only Doctor Unassigned, [facility] 1.840.114 350.1.13.10 4.2.7.2.686 [id number] [facility] 2021-05-01 00:00:00 2021-05-01 00:00:00 Refill Doctor Unassigned, [facility] One 1.840.114 350.1.13.10 4.2.7.2.686 [id number] 044 [id number] [facility] 2021-04-30 00:00:00 2021-04-30 00:00:00 Patient Secure Msg Tucker [facility] One 1.114 350.1.13.10 4.2.7.2.686 [id number] 044 [id number] [facility] 2021-04-10 00:00:00 2021-04-10 00:00:00 Patient Secure Msg Doctor Unassigned, [facility] 1..114 350.1.13.10 4.2.7.2.686 [id number] [facility] 2021-04-09 00:00:00 2021-04-09 00:00:00 Patient Secure Msg Doctor Unassigned, [facility] One 1.114 350.1.13.10 4.2.7.2.686 [id number] 044 [id number] [facility] 2021-04-03 07:32:26 2021-04-03 07:47:26 Office Visit Tucker [facility] One 1.114 350.1.13.10 4.2.7.2.686 [id number] 044 [id number] [facility] 2021-04-03 07:30:00 2021-04-03 07:30:00 Outpatient R GEORGINA SERRANO [facility] [id number] [facility] 2021-04-03 00:00:00 2021-04-03 00:00:00 Orders Only Doctor Unassigned, [facility] 1.114 350.1.13.10 4.2.7.2.686 [id number] [facility] 2021-03-21 00:00:00 2021-03-21 00:00:00 Patient Secure Msg Doctor Unassigned, [facility] ONE 1.2840.114 350.1.13.10 4.2.7.2.686 [id number] 044 [id number] [facility] 2021-03-19 00:00:00 2021-03-19 00:00:00 Refill Doctor Unassigned, [facility] 1.2840.114 350.1.13.10 4.2.7.2.686 [id number] [id number] [facility] 2021-03-19 00:00:00 2021-03-19 00:00:00 Refill Doctor Unassigned, [facility] 1.2840.114 350.1.13.10 4.2.7.2.686 [id number] 044 [id number] 2021-03-09 00:00:00 2021-03-09 00:00:00 Refill Doctor Unassigned, [facility] One 1.2840.114 350.1.13.10 4.2.7.2.686 [id number] 044 [id number] [facility] 2021-03-09 00:00:00 2021-03-09 00:00:00 Refill Doctor Unassigned, [facility] 1.2840.114 350.1.13.10 4.2.7.2.686 [id number] 044 [id number] 2021-02-08 00:00:00 2021-02-08 00:00:00 Refill Doctor Unassigned, [facility] One 1.2840.114 350.1.13.10 4.2.7.2.686 [id number] 044 [id number] [facility] 2021-02-08 00:00:00 2021-02-08 00:00:00 Refill Doctor Unassigned, [facility] 1.2.840.114 350.1.13.10 4.2.7.2.686 [id number] 044 [id number] 2021-01-11 00:00:00 2021-01-11 00:00:00 Refill Doctor Unassigned, [facility] 1.2840.114 350.1.13.10 4.2.7.2.686 [id number] 044 [id number] [facility] 2021-01-11 00:00:00 2021-01-11 00:00:00 Refill Doctor Unassigned, [facility] 1.2840.114 350.1.13.10 4.2.7.2.686 [id number] 2020-12-18 00:00:00 2020-12-18 00:00:00 Patient Outreach [facility] 1.2.840.114 350.1.13.10 4.2.7.2.686 [id number] [facility] 2020-12-18 00:00:00 2020-12-18 00:00:00 Patient Outreach [facility] 1.2.840.114 350.1.13.10 4.2.7.2.686 [id number] 2020-12-14 12:51:14 2020-12-14 13:06:14 Office Visit Tucker [facility] Office Building One 1.2840.114 350.1.13.10 4.2.7.2.686 [id number] 044 [id number] [facility] 2020-12-14 12:51:14 2020-12-14 13:06:14 Office Visit Tucker [facility] Building One 1.2840.114 350.1.13.10 4.2.7.2.686 [id number] 2020-12-14 13:00:00 2020-12-14 13:00:00 Outpatient GEORGINA BLANTON [facility] [id number] [facility] 2020-11-15 00:00:00 2020-11-15 00:00:00 Refill Doctor Unassigned, [facility] One ..840.114 350.1.13.10 4.2.7.2.686 [id number] 044 [id number] [facility] 2020-11-15 00:00:00 2020-11-15 00:00:00 Refill Reece Marroquin [facility] One 1..840.114 350.1.13.10 4.2.7.2.686 [id number] [facility] 2020-10-20 00:00:00 2020-10-20 00:00:00 Refill Doctor Unassigned, [facility] One ..840.114 350.1.13.10 4.2.7.2.686 [id number] [id number] [facility] 2020-10-17 00:00:00 2020-10-17 00:00:00 Refill Doctor Unassigned, [facility] One .840.114 350.1.13.10 4.2.7.2.686 [id number] [facility] 2020-10-05 08:00:00 2020-10-05 08:00:00 Outpatient GEORGINA BLANTON [facility] [id number] [facility] 2020-09-26 09:30:00 2020-09-26 09:30:00 Outpatient Larisa [facility] [id number] [facility] 2020-09-26 00:00:00 2020-09-26 00:00:00 Patient Secure Alex Rod [facility] 1.840.114 350.1.13.10 4.2.7.2.686 [id number] [facility] 2020-09-23 00:00:00 2020-09-23 00:00:00 Patient Secure Msg Doctor Unassigned, [facility] ONE 1.840.114 350.1.13.10 4.2.7.2.686 [id number] [facility] 2020-09-19 09:23:00 2020-09-19 11:15:00 Emergency Sagar Crespo [facility] 1.840.114 350.1.13.10 4.2.7.2.686 [id number] [facility] 2020-09-19 00:00:00 2020-09-19 00:00:00 Patient Secure Msg Doctor Unassigned, [facility] ONE 1.0.114 350.1.13.10 4.2.7.2.686 [id number] [id number] [facility] 2020-09-19 00:00:00 2020-09-19 00:00:00 Patient Secure Msg Tucker [facility] Building One 1.114 350.1.13.10 4.2.7.2.686 [id number] 044 [id number] [facility] 2020-09-19 00:00:00 2020-09-19 00:00:00 Patient Secure Msg Georgina Serrano [facility] One 1.0.114 350.1.13.10 4.2.7.2.686 [id number] 044 [id number] [facility] 2020-09-14 14:00:40 2020-09-14 14:15:40 Office Visit Georgina Serrano [facility] One 1.114 350.1.13.10 4.2.7.2.686 [id number] [facility] 2020-09-14 14:15:00 2020-09-14 14:15:00 Outpatient R GEORGINA SERRANO [facility] [id number] [facility] 2020-09-04 00:00:00 2020-09-04 00:00:00 Patient Secure Msg Tucker [facility] One 1.114 350.1.13.10 4.2.7.2.686 [id number] [facility] 2020-09-01 16:21:00 2020-09-01 20:00:00 Emergency Shelia Denis R [facility] 1.114 350.1.13.10 4.2.7.2.686 [id number] [facility] 2020-09-01 16:21:00 2020-09-01 20:00:00 Emergency X SHELIA DENIS [facility] ERT [id number] [facility] 2020-09-01 00:00:00 2020-09-01 00:00:00 Orders Only Doctor Unassigned, [facility] .114 350.1.13.10 4.2.7.2.686 [id number] [facility] 2020-08-22 00:00:00 2020-08-22 00:00:00 Patient Secure Msg Doctor Unassigned, [facility] ONE .114 350.1.13.10 4.2.7.2.686 [id number] 044 [id number] [facility] 2020-08-21 00:00:00 2020-08-21 00:00:00 Patient Secure Msg Tucker [facility] Building One .114 350.1.13.10 4.2.7.2.686 [id number] 044 [id number] [facility] 2020-08-17 00:00:00 2020-08-17 00:00:00 Patient Secure Msg Doctor Unassigned, [facility] ONE 1.840.114 350.1.13.10 4.2.7.2.686 [id number] 044 [id number] [facility] 2020-08-17 00:00:00 2020-08-17 00:00:00 Telephone Georgina Serrano [facility] One 1.840.114 350.1.13.10 4.2.7.2.686 [id number] 044 [id number] [facility] 2020-08-17 00:00:00 2020-08-17 00:00:00 Patient Secure Msg Tucker [facility] One 1.840.114 350.1.13.10 4.2.7.2.686 [id number] 044 [id number] [facility] 2020-08-16 00:00:00 2020-08-16 00:00:00 Patient Secure Msg Georgina Serrano [facility] One 1.840.114 350.1.13.10 4.2.7.2.686 [id number] [facility] 2020-08-16 00:00:00 2020-08-16 00:00:00 Patient Secure Msg Doctor Unassigned, [facility] One 1.840.114 350.1.13.10 4.2.7.2.686 [id number] 044 [id number] [facility] 2020-08-14 00:00:00 2020-08-14 00:00:00 Refill Doctor Unassigned, [facility] One 1.840.114 350.1.13.10 4.2.7.2.686 [id number] 044 [id number] [facility] 2020-08-07 00:00:00 2020-08-07 00:00:00 Patient Secure Georgina [facility]es [facility] One 1.114 350.1.13.10 4.2.7.2.686 [id number] [id number] [facility] 2020-07-27 08:00:00 2020-07-27 08:00:00 Outpatient MARJ MARTINI [facility] [id number] [facility] 2020-07-25 00:00:00 2020-07-25 00:00:00 Outpatient MARJ MARTINI [facility] [id number] [facility] 2020-07-25 00:00:00 2020-07-25 00:00:00 Patient Secure Marj Hubbard [facility] 1..114 350.1.13.10 4.2.7.2.686 [id number] [facility] 2020-07-25 00:00:00 2020-07-25 00:00:00 Patient Secure Marj Hubbard [facility] 1..114 350.1.13.10 4.2.7.2.686 [id number] [facility] 2020-07-19 00:00:00 2020-07-19 00:00:00 Refill Doctor Unassigned, [facility] One 1.114 350.1.13.10 4.2.7.2.686 [id number] [id number] [facility] 2020-07-17 00:00:00 2020-07-17 00:00:00 Patient Secure Marj Hubbard [facility] 1..114 350.1.13.10 4.2.7.2.686 [id number] [facility] 2020-07-14 08:07:27 2020-07-14 08:40:29 Office Visit Marj Domínguez [facility] 1.114 350.1.13.10 4.2.7.2.686 [id number] [facility] 2020-07-14 08:00:00 2020-07-14 08:00:00 Outpatient R ROBBY DOMÍNGUEZN [facility] [id number] [facility] 2020-07-14 00:00:00 2020-07-14 00:00:00 Orders Only Doctor Unassigned, [facility] 1.114 350.1.13.10 4.2.7.2.686 [id number] [facility] 2020-07-14 00:00:00 2020-07-14 00:00:00 Patient Secure Msg Doctor Unassigned, [facility] ONE 1..114 350.1.13.10 4.2.7.2.686 [id number] [facility] 2020-07-13 08:45:00 2020-07-13 08:45:00 Outpatient R GEORGINA SERRANO [facility] [id number] [facility] 2020-07-13 08:09:43 2020-07-13 08:24:43 Hand Etcher Visit Lab, Georgina Jean [facility] 1.114 350.1.13.10 4.2.7.2.686 [id number] [facility] 2020-07-12 16:00:00 2020-07-12 16:00:00 Outpatient R ROBBY DOMÍNGUEZN [facility] [id number] [facility] 2020-06-22 06:59:59 2020-06-22 07:14:59 Office Visit Georgina Serrano [facility] Building One 1.2.840.114 350.1.13.10 4.2.7.2.686 [id number] [facility] 2020-06-22 07:00:00 2020-06-22 07:00:00 Outpatient GEORGINA BLANTON [facility] [id number] [facility] 2020-06-22 00:00:00 2020-06-22 00:00:00 Letter (Out) Doctor Unassigned, [facility] 1.2.840.114 350.1.13.10 4.2.7.2.686 [id number] [facility] 2020-05-17 00:00:00 2020-05-17 00:00:[facility] 1.2840.114 350.1.13.10 4.2.7.2.686 [id number] 044 [id number] [facility] 2020-04-20 00:00:00 2020-04-20 00:00:00 Refgeorge Serrano [facility] One 1.2.840.114 350.1.13.10 4.2.7.2.686 [id number] 044 [id number] [facility] 2020-03-23 00:00:00 2020-03-23 00:00:00 Refill Georgina Serrano [facility] 1.2.840.114 350.1.13.10 4.2.7.2.686 [id number] [facility] 2020-02-25 00:00:00 2020-02-25 00:00:00 Georgina Calero [facility] 1.2.840.114 350.1.13.10 4.2.7.2.686 [id number] [facility] 2020-02-24 08:00:00 2020-02-24 08:00:00 Outpatient GEORGINA BLANTON [facility] [id number] [facility] 2020-02-24 07:10:45 2020-02-24 07:25:45 Telemedici ne Visit Georgina Serrano [facility] Antonino Dick [facility] 1.2.840.114 350.1.13.10 4.2.7.2.686 [id number] [facility] Notes Date/Time Note Provider Source 2024-11-17 10:28:29 Notes: please review and advise Last Refilled: HYDROcodone-acetaminophen 10-325 mg tablet 28 tablet 0 08/30/2024 -- -- Sig: Take 1 tablet by mouth every 6 (six) hours as needed for Pain (scale 7-10). 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) Recent Visits Date Type Provider Dept 10/21/24 Office Visit Georgina Serrano MD [facility] 03/04/24 Office Visit Georgina Serrano MD [facility] 08/11/23 Office Visit Georgina Serrano MD [facility] Showing recent visits within past 540 days with a meds authorizing provider and meeting all other requirements Future Appointments Date Type Provider Dept 04/14/25 Appointment Georgina Serrano MD [facility] Showing future appointments within next 150 days with a meds authorizing provider and meeting all other requirements [facility] 2024-10-21 09:50:45 Appt scheduled 10/21 ENGER SERVICE REPRESENTATIVE Reta Shannon [facility] 2024-10-14 15:18:27 Can we assist patient in making appointment for medication refill with Tucker ENGER SERVICE REPRESENTATIVE Mally Luciano MA [facility] 2024-10-14 07:35:31 Please ask patient to make an appointment with Dr Serrano to have medications refilled. [facility] 2024-10-13 11:12:01 Recent Visits Date Type Provider Dept 03/04/24 Office Visit Georgina Serrano MD [facility] 08/11/23 Office Visit Georgina Serrano MD [facility] Showing recent visits within past 540 days with a meds authorizing provider and meeting all other requirements Future Appointments No visits were found meeting these conditions. Showing future appointments within next 150 days with a meds authorizing provider and meeting all other requirements Last refill was Disp Refills Start End MARCY HYDROcodone-acetaminophen 10-325 mg tablet 28 tablet 0 08/30/2024 -- -- Sig: Take 1 tablet by mouth every 6 (six) hours as needed for Pain (scale 7-10). Indications: acute pain Disp Refills Start End MARCY lisdexamfetamine (VYVANSE) 50 mg capsule 30 capsule 0 08/30/2024 -- [facility] 2024-08-27 09:15:07 Please review and sign if appropriate. .Refills have been requested for the following medications: HYDROcodone-acetaminophen 10-325 mg tablet [Georgina Serrano] lisdexamfetamine (VYVANSE) 50 mg capsule [Georgina Serrano] Preferred pharmacy: [facility] [place], [place] - [address] [facility] Delivery method: Pickup Recent Visits Date Type Provider Dept 03/04/24 Office Visit Georgina Serrano MD [facility] 08/11/23 Office Visit Georgina Serrano MD [facility] Showing recent visits within past 540 days with a meds authorizing provider and meeting all other requirements Future Appointments No visits were found meeting these conditions. Showing future appointments within next 150 days with a meds authorizing provider and meeting all other requirements [facility] 2024-07-29 11:37:38 Recent Visits Date Type Provider Dept 03/04/24 Office Visit Georgina Serrano MD [facility] 08/11/23 Office Visit Georgina Serrano MD [facility] Showing recent visits within past 540 days with a meds authorizing provider and meeting all other requirements Future Appointments No visits were found meeting these conditions. Showing future appointments within next 150 days with a meds authorizing provider and meeting all other requirements Last refill was Disp Refills Start End MARCY lisdexamfetamine (VYVANSE) 50 mg capsule 30 capsule 0 06/28/2024 -- -- Sig: Take 1 capsule by mouth every morning. T Mally Luciano MA [facility] 2024-07-28 08:43:39 Recent Visits Date Type Provider Dept 03/04/24 Office Visit Georgina Serrano MD [facility] 08/11/23 Office Visit Georgina Serrano MD [facility] Showing recent visits within past 540 days with a meds authorizing provider and meeting all other requirements Future Appointments No visits were found meeting these conditions. Showing future appointments within next 150 days with a meds authorizing provider and meeting all other requirements Last refill was HYDROcodone-acetaminophen 10-325 mg tablet 28 tablet 0 05/26/2024 -- -- Sig: Take 1 tablet by mouth every 6 (six) hours as needed for Pain (scale 7-10). Indications: acute pain Mally Luciano MA [facility] 2024-06-28 11:01:27 Please review and sign if appropriate: *Requesting to route to selected pharmacy Last office visit: 03/04/24 Requested Prescriptions Pending Prescriptions Disp Refills lisdexamfetamine (VYVANSE) 50 mg capsule 30 capsule 0 Sig: Take 1 capsule by mouth every morning. Last refill date: 06/28/2024 Notes: Attention deficit disorder (ADD) without hyperactivity Bryanna Andersen LVN [facility] 2024-06-25 11:18:09 Notes: Last Refilled: lisdexamfetamine (VYVANSE) 50 mg capsule 30 capsule 0 05/26/2024 -- -- Sig: Take 1 capsule by mouth every morning. Sent to pharmacy as: lisdexamfetamine 50 mg capsule (Vyvanse) Class: eRX Earliest Fill Date: 05/26/2024 Route: Oral Order: [id number] Date/Time Signed: 05/26/2024 07:25 E-Prescribing Status: Receipt confirmed by pharmacy (05/26/2024 8:12 AM CDT) Recent Visits Date Type Provider Dept 03/04/24 Office Visit Georgina Serrano MD [facility] 08/11/23 Office Visit Georgina Serrano MD [facility] 01/21/23 Office Visit Georgina Serrano MD [facility] Showing recent visits within past 540 days with a meds authorizing provider and meeting all other requirements Future Appointments No visits were found meeting these conditions. Showing future appointments within next 150 days with a meds authorizing provider and meeting all other requirements [facility] 2024-06-25 11:18:00 From: Hill Johnson To: Office of Georgina Serrano Sent: 06/25/2024 11:11 AM CDT Subject: Medication Renewal Request Refills have been requested for the following medications: lisdexamfetamine (VYVANSE) 50 mg capsule [Georgina Serrano] Preferred pharmacy: [facility] in [place] Delivery method: Pickup [facility] 2024-05-26 06:48:57 Notes: please review Last Refilled: HYDROcodone-acetaminophen 10-325 mg tablet 28 tablet 0 03/29/2024 -- -- Sig: Take 1 tablet by mouth every 6 (six) hours as needed for Pain (scale 7-10). Indications: acute pain Sent to pharmacy as: hydrocodone 10 mg-acetaminophen 325 mg tablet (NORCO) Class: eRX Earliest Fill Date: 03/29/2024 Route: Oral Order: [id number] Date/Time Signed: 03/29/2024 14:02 E-Prescribing Status: Receipt confirmed by pharmacy (03/29/2024 2:11 PM CDT) Disp Refills Start End MARCY lisdexamfetamine (VYVANSE) 50 mg capsule 30 capsule 0 04/28/2024 -- -- Sig: Take 1 capsule by mouth every morning. Sent to pharmacy as: lisdexamfetamine 50 mg capsule (Vyvanse) Class: eRX Earliest Fill Date: 04/28/2024 Route: Oral Order: [id number] Date/Time Signed: 04/28/2024 06:28 E-Prescribing Status: Receipt confirmed by pharmacy (04/28/2024 8:11 AM CDT) Recent Visits Date Type Provider Dept 03/04/24 Office Visit Georgina Serrano MD [facility] 08/11/23 Office Visit Georgina Serrano MD [facility] 01/21/23 Office Visit Georgina Serrano MD [facility] Showing recent visits within past 540 days with a meds authorizing provider and meeting all other requirements Future Appointments No visits were found meeting these conditions. Showing future appointments within next 150 days with a meds authorizing provider and meeting all other requirements [facility] 2024-05-26 06:48:54 From: Hill Johnson To: Office of Georgina Serrano Sent: 05/25/2024 6:06 PM CDT Subject: Medication Renewal Request Refills have been requested for the following medications: HYDROcodone-acetaminophen 10-325 mg tablet [Georgina Serrano] lisdexamfetamine (VYVANSE) 50 mg capsule [Georgina Serrano] Preferred pharmacy: [facility] [address] [place] [facility] Delivery method: Pickup [facility] 2024-04-27 13:57:43 Send to the same pharmacy as you did last month [facility] Mally Luciano MA [facility] 2024-04-26 10:40:59 Recent Visits Date Type Provider Dept 03/04/24 Office Visit Georgina Serrano MD [facility] 08/11/23 Office Visit Georgina Serrano MD [facility] 01/21/23 Office Visit Georgina Serrano MD [facility] Showing recent visits within past 540 days with a meds authorizing provider and meeting all other requirements Future Appointments No visits were found meeting these conditions. Showing future appointments within next 150 days with a meds authorizing provider and meeting all other requirements Last refill was Disp Refills Start End MARCY lisdexamfetamine (VYVANSE) 50 mg capsule 30 capsule 0 03/29/2024 -- -- Sig: Take 1 capsule by mouth every morning. [facility] 2024-03-29 11:37:49 From: Hill Johnson To: Office of Georgina Serrano Sent: 03/29/2024 11:34 AM CDT Subject: Medication Renewal Request Refills have been requested for the following medications: HYDROcodone-acetaminophen 10-325 mg tablet [Georgina Serrano] lisdexamfetamine (VYVANSE) 50 mg capsule [Georgina Serrano] Preferred pharmacy: [facility] [place], [place] - [address] [place] [address] DR DHRUV MARQUEZ Delivery method: Pickup Recent Visits Date Type Provider Dept 03/04/24 Office Visit Georgina Serrano MD [facility] 08/11/23 Office Visit Georgina Serrano MD [facility] 01/21/23 Office Visit Georgina Serrano MD [facility] Showing recent visits within past 540 days with a meds authorizing provider and meeting all other requirements Future Appointments No visits were found meeting these conditions. Showing future appointments within next 150 days with a meds authorizing provider and meeting all other requirements [facility] 2024-03-16 19:39:[address] [facility] Printed and placed in providers box. Ebonie Ceballos [facility] 2024-03-01 13:58:48 lisdexamfetamine (VYVANSE) 50 mg capsule 30 capsule 0 01/28/2024 HYDROcodone-acetaminophen 10-325 mg tablet 28 tablet 0 01/20/2024 Notes: [facility] Recent Visits Date Type Provider Dept 08/11/23 Office Visit Georgina Serrano MD [facility] 01/21/23 Office Visit Georgina Serrano MD [facility] 09/26/22 Office Visit Georgina Serrano MD [facility] Showing recent visits within past 540 days with a meds authorizing provider and meeting all other requirements Future Appointments No visits were found meeting these conditions. Showing future appointments within next 150 days with a meds authorizing provider and meeting all other requirements [facility] 2024-03-01 13:58:44 From: Hill Johnson To: Office of Georgina Serrano Sent: 02/27/2024 7:03 PM CDT Subject: Medication Renewal Request Refills have been requested for the following medications: HYDROcodone-acetaminophen 10-325 mg tablet [Georgina Serrano] lisdexamfetamine (VYVANSE) 50 mg capsule [Georgina Serrano] Preferred pharmacy: [facility] [place] [address] [address] [facility] Delivery method: Pickup [facility] 2024-01-20 08:36:28 From: Hill Johnson To: Office of Georgina Serrano MD Sent: 01/20/2024 8:24 AM CDT Subject: Medication Renewal Request Refills have been requested for the following medications: HYDROcodone-acetaminophen 10-325 mg tablet [Georgina Serrano] lisdexamfetamine (VYVANSE) 50 mg capsule [Georgina Serrano] Preferred pharmacy: [address] Delivery method: Pickup [facility] 2023-11-24 07:08:08 From: Hill Johnson To: Office of Georgina Serrano MD Sent: 11/22/2023 2:23 PM PASSENGER SERVICE REPRESENTATIVE Subject: Medication Renewal Request Refills have been requested for the following medications: lisdexamfetamine (VYVANSE) 50 mg capsule [Georgina Serrano] Preferred pharmacy: [place] [address] [address] [facility] [address] Delivery method: Pickup Recent Visits Date Type Provider Dept 08/11/23 Office Visit Georgina Serrano MD [facility] 01/21/23 Office Visit Georgina Serrano MD [facility] 09/26/22 Office Visit Georgina Serrano MD [facility] Showing recent visits within past 540 days with a meds authorizing provider and meeting all other requirements Future Appointments No visits were found meeting these conditions. Showing future appointments within next 150 days with a meds authorizing provider and meeting all other requirements [facility] 2023-10-22 08:09:52 From: Hill Johnson To: Office of Georgina Serrano MD Sent: 10/22/2023 8:00 AM PASSENGER SERVICE REPRESENTATIVE Subject: Medication Renewal Request Refills have been requested for the following medications: HYDROcodone-acetaminophen 10-325 mg tablet [Georgina Serrano] lisdexamfetamine (VYVANSE) 50 mg capsule [Georgina Serrano] Preferred pharmacy: [facility] [address] [place] [place] Delivery method: Pickup Recent Visits Date Type Provider Dept 08/11/23 Office Visit Georgina Serrano MD [facility] 01/21/23 Office Visit Georgina Serrano MD [facility] 09/26/22 Office Visit Georgina Serrano MD [facility] 05/01/22 Office Visit Georigna Serrano MD [facility] Showing recent visits within past 540 days with a meds authorizing provider and meeting all other requirements Future Appointments No visits were found meeting these conditions. Showing future appointments within next 150 days with a meds authorizing provider and meeting all other requirements [facility] 2023-09-24 11:29:14 From: Hill Johnson To: Office of Georgina Serrano MD Sent: 09/24/2023 12:40 AM [facility] Subject: Medication Renewal Request Refills have been requested for the following medications: HYDROcodone-acetaminophen 10-325 mg tablet [Georgina Serrano] lisdexamfetamine (VYVANSE) 50 mg capsule [Georgina Serrano] Preferred pharmacy: [address] [facility] [address] Delivery method: Pickup Recent Visits Date Type Provider Dept 08/11/23 Office Visit Georgina Serrano MD [facility] 01/21/23 Office Visit Geogrina Serrano MD [facility] 09/26/22 Office Visit Georgina Serrano MD [facility] 05/01/22 Office Visit Georgina Serrano MD [facility] Showing recent visits within past 540 days with a meds authorizing provider and meeting all other requirements Future Appointments No visits were found meeting these conditions. Showing future appointments within next 150 days with a meds authorizing provider and meeting all other requirements ENGER SERVICE REPRESENTATIVE [facility] 2023-06-04 07:18:35 Formatting of this n ote is different from the original. Message from [employer]: Refills have been requested for the following medications: lisdexamfetamine (VYVANSE) 50 mg capsule [Georgina Serrano] HYDROcodone-acetaminophen 10-325 mg tablet [Georgina Serrano] Preferred pharmacy: [address] Delivery method: Pickup Recent Visits Date Type Provider Dept 01/21/23 Office Visit Georgina Serrano MD [facility] 09/26/22 Office Visit Georgina Serrano MD [facility] 05/01/22 Office Visit Georgina Serrano MD [facility] Showing recent visits within past 540 days with a meds authorizing provider and meeting all other requirements Future Appointments No visits were found meeting these conditions. Showing future appointments within next 150 days with a meds authorizing provider and meeting all other requirements [employer] 2023-05-05 10:11:47 Formatting of this n ote is different from the original. Message from [employer]: Refills have been requested for the following medications: lisdexamfetamine (VYVANSE) 50 mg capsule [Georgina Serrano] HYDROcodone-acetaminophen 10-325 mg tablet [Georgina Serrano] Preferred pharmacy: [facility] [address] [place] Delivery method: Pickup Recent Visits Date Type Provider Dept 01/21/23 Office Visit Georgina Serrano MD [facility] 09/26/22 Office Visit Georgina Serrano MD [facility] 05/01/22 Office Visit Georgina Serrano MD [facility] Showing recent visits within past 540 days with a meds authorizing provider and meeting all other requirements Future Appointments No visits were found meeting these conditions. Showing future appointments within next 150 days with a meds authorizing provider and meeting all other requirements [facility] [employer]
[2024-12-24] MEDS ORDERED: NA CHLORIDE 0.9% 250 ML ONE (15:28)
[2024-12-24] MEDS ORDERED: VANCOMYCIN 1 GM/VIAL ONE (15:28)
[2024-12-24 15:54] LABS: Absolute Basophils 0.1 K/uL (0-0.5); Absolute Eosinophils 0.1 K/uL (0-0.5); Absolute Lymphocytes (CBC) 2.2 K/uL (0.7-4.9); Absolute Monocytes 0.8 K/uL (0.1-1.3); Absolute Neutrophil 6.7 K/uL (1.8-8.0); Basophils % 0.5 % (0-1.3); Eosinophils % 1.2 % (0-4.4); Hematocrit 37.9 % (36.0-45.0); Hemoglobin 13.4 g/dL (12.0-15.0); Lymphocytes % 22.5 % (15.3-44.8); MCH 32.4 pg (27.0-35.0); MCHC 35.3 g/dL (32.0-36.0); MCV 91.7 fL (80-100); MPV 7.2 fL (7.6-11.3); Monocytes % 8.5 % (3.3-12.3); Neutrophils % 67.3 % (41.7-73.7); Nucleated Red Blood Cells % 0.1 % (0-0); Platelets 337 thou/uL (152-406); RBC Red Blood Cell Count 4.13 M/uL (3.86-4.86); Red Cell Distribution Width 13.6 % (12.1-15.2)
[2024-12-24 16:09] LABS: Albumin 3.8 g/dL (3.4-5.0); Albumin/Globulin Ratio 1.2 (1.1-1.8); Anion Gap 8.5 mEq/L (5.0-15.0); Bilirubin Total 0.6 mg/dL (0.2-1.0); Globulin 3.3 g/dL (2.3-3.5); Potassium 3.5 mEq/L (3.5-5.1); Protein, Total 7.1 g/dL (6.4-8.2)
--- NOTE | 2024-12-24 17:04 | ER ---
Nurse's Notes [facility] Name: Abbi Johnson Age: 39 yrs Sex: Female : 1985 Arrival Date: 12/24/2024 Time: 15:15 Bed 17 Private MD: Diagnosis: Cellulitis, unspecified Presentation: 12/24 15:28 Chief complaint: Patient states: she noticed a bite on her right upper thigh Friday ap3 12/21/24. patient reports infection area has been getting worse after visiting PCP and being on prescribed antibiotics. patient reports waking up this morning feeling nauseated with a headache. patient currently rates her pain as a 7/10 on the pain scale. Coronavirus screen: At this time, the client does not indicate any symptoms associated with coronavirus-19. Ebola Screen: No symptoms or risks identified at this time. Initial Sepsis Screen: Does the patient meet any 2 criteria? HR > 90 bpm. Does the patient have a suspected source of infection? No. Patient's initial sepsis screen is negative. Risk Assessment: Do you want to hurt yourself or someone else? Patient reports no desire to harm self or others. Onset of symptoms was December 21, 2024. Transition of care: patient was not received from another setting of care. 15:28 Method Of Arrival: Ambulatory ap3 15:28 Acuity: KERRI 3 ap3 Triage Assessment: 15:33 General: Appears in no apparent distress. Behavior is calm, cooperative, appropriate ap3 for age. Pain: Complains of pain in right quadriceps Pain currently is 7 out of 10 on a pain scale. Neuro: Level of Consciousness is awake, alert, obeys commands, Oriented to person, place, time, situation, Gait is steady. Cardiovascular: Patient's skin is warm and dry. Respiratory: Airway is patent Respiratory effort is even, unlabored, Respiratory pattern is regular, symmetrical. Derm: Wound noted right quadriceps. 17:07 Bite description: bite sustained to right quadriceps by an unknown animal, animal bp information: vaccination(s) is not applicable. Historical: - Allergies: 15:31 Codeine; ap3 15:31 PENICILLINS; ap3 - PMHx: 15:31 chron's; ap3 - PSHx: 15:31 Appendectomy; Cholecystectomy; Ligation of fallopian tube; ap3 - Immunization history:: Client reports having NOT received the Covid vaccine. - Infectious Disease History:: Denies. - Social history:: Smoking status: Reported history of juuling and/or vaping. Screenin:34 Abuse screen: Denies threats or abuse. Nutritional screening: No deficits noted. ap3 Tuberculosis screening: No symptoms or risk factors identified. 17:07 [facility] ED Fall Risk Assessment (Adult) History of falling in the last 3 months, bp including since admission No falls in past 3 months (0 pts) Confusion or Disorientation No (0 pts) Intoxicated or Sedated No (0 pts) Impaired Gait No (0 pts) Mobility Assist Device Used No (0 pt) Altered Elimination No (0 pt) Score/Fall Risk Level 0 - 2 = Low Risk Oriented to surroundings. Assessment: 15:33 General: Appears in no apparent distress. uncomfortable, Behavior is cooperative, bp appropriate for age, anxious. Pain: Complains of pain in right quadriceps. Neuro: No deficits noted. Derm: Skin R ANTERIOR THIGH ABSCESS WITH INDURATION Skin is pink, warm \T\ dry. 16:30 Reassessment: No changes from previously documented assessment. Patient is alert, bp oriented x 3, equal unlabored respirations, skin warm/dry/pink. Vital Signs: 15:28 BP 143 / 66; Pulse 102; Resp 17; Temp 98.8(O); Pulse Ox 99% on R/A; Weight 83.46 kg; ap3 Height 5 ft. 10 in. ; Pain 7/10; 16:30 BP 137 / 56; Pulse 87; Resp 16; Pulse Ox 100% ; bp 17:05 BP 132 / 62; Pulse 84; Resp 16; Pulse Ox 100% ; bp 15:28 Body Mass Index 26.40 (83.46 kg, 177.8 cm) ap3 15:28 Pain Scale: Adult ap3 ED Course: 15:19 Patient arrived in ED. al6 15:21 Selam Dhaliwal MD is Attending Physician. sp3 15:24 Aristides Richter, IDRIS is Primary Nurse. bp 15:31 Triage completed. ap3 15:34 Arm band placed on right wrist. ap3 15:34 Patient has correct armband on for positive identification. Placed in gown. Bed in low ap3 position. Call light in reach. Adult w/ patient. 15:44 Inserted saline lock: 20 gauge in right forearm, using aseptic technique. Blood bp collected. Flushed with 10 mL NS. 15:45 Initial lab(s) drawn, by me, sent to lab. First set of blood cultures drawn by me, bp Second set of blood cultures drawn by me. 17:05 No provider procedures requiring assistance completed. IV discontinued, intact, bp bleeding controlled, No redness/swelling at site. Pressure dressing applied. Wound care: to ABSCESS located on right quadriceps was dressed with 4X4s. 17:07 Provided Education on: NA. bp Administered Medications: 15:45 Drug: vancoMYCIN IVPB 1 grams IVPB once over 2 hrs Route: IVPB; Infused Over: 2 hrs; bp Site: right forearm; 17:08 Follow up: IV Status: Completed infusion; IV Intake: 250ml bp Medication: 17:07 VIS not applicable for this client. bp Intake: 17:08 IV: 250ml; Total: 250ml. bp Outcome: 17:03 Discharge ordered by . sp3 17:06 Discharged to home ambulatory, with family, bp 17:06 Condition: stable 17:06 Discharge instructions given to patient, Instructed on discharge instructions, follow up and referral plans. medication usage, wound care, Demonstrated understanding of instructions, follow-up care, medications, wound care, Prescriptions given X 2, 17:11 Patient left the ED. bp Signatures: Aristides Richter RN RN bp Enma Pat RN RN ap3 Selam Dhaliwal MD MD sp3 Betty [id number]
--- NOTE | 2024-12-24 17:04 | EDPHYS ---
Physician Documentation [facility] Name: Abbi Johnson Age: 39 yrs Sex: Female : 1985 Arrival Date: 12/24/2024 Time: 15:15 Bed 17 Private MD: ED Physician Selam Dhaliwal HPI: 12/24 15:26 This 39 yrs old Female presents to ER via Unassigned with complaints of Insect Bite. sp3 15:26 39-year-old female with history of Crohn's disease not on steroids presents to the ED sp3 with chief complaint of insect bite to the right distal anterior thigh being treated outpatient antibiotics by Dr. Arvizu with both oral and topical medications presents to the ED for increasing erythema and redness. Patient denies any fever, swollen lymph nodes, neck pain, chest pain, shortness of breath, German pain, back pain, vomiting, diarrhea, or any other signs or symptoms on ROS at this time.. Historical: - Allergies: 15:31 Codeine; ap3 15:31 PENICILLINS; ap3 - PMHx: 15:31 chron's; ap3 - PSHx: 15:31 Appendectomy; Cholecystectomy; Ligation of fallopian tube; ap3 - Immunization history:: Client reports having NOT received the Covid vaccine. - Infectious Disease History:: Denies. - Social history:: Smoking status: Reported history of juuling and/or vaping. ROS: 15:27 Constitutional: Negative for fever, chills, and weight loss, Eyes: Negative for injury, sp3 pain, redness, and discharge, Neck: Negative for injury, pain, and swelling, Cardiovascular: Negative for chest pain, palpitations, and edema, Respiratory: Negative for shortness of breath, cough, wheezing, and pleuritic chest pain, Abdomen/GI: Negative for abdominal pain, nausea, vomiting, diarrhea, and constipation, Back: Negative for injury and pain, Neuro: Negative for headache, weakness, numbness, tingling, and seizure, Psych: Negative for depression, anxiety, suicide ideation, homicidal ideation, and hallucinations, Allergy/Immunology: Negative for hives, rash, and allergies, Endocrine: Negative for neck swelling, polydipsia, polyuria, polyphagia, and marked weight changes, Hematologic/Lymphatic: Negative for swollen nodes, abnormal bleeding, and unusual bruising, 15:27 All other systems are negative, Exam: 15:27 Constitutional: This is a well developed, well nourished patient who is awake, alert, sp3 and in no acute distress. Head/Face: Normocephalic, atraumatic. Eyes: Pupils equal round and reactive to light, extra-ocular motions intact. Lids and lashes normal. Conjunctiva and sclera are non-icteric and not injected. Cornea within normal limits. Periorbital areas with no swelling, redness, or edema. ENT: Nares patent. No nasal discharge, no septal abnormalities noted. External auditory canals are clear. Oropharynx with no redness, swelling, or masses, exudates, or evidence of obstruction, uvula midline. Mucous membranes moist. Neck: Trachea midline, no thyromegaly or masses palpated, and no cervical lymphadenopathy. Supple, full range of motion without nuchal rigidity, or vertebral point tenderness. No Meningismus. Chest/axilla: Normal chest wall appearance and motion. Nontender with no deformity. No lesions are appreciated. Cardiovascular: Regular rate and rhythm with a normal S1 and S2. No gallops, murmurs, or rubs. Normal PMI, no JVD. No pulse deficits. Respiratory: Lungs have equal breath sounds bilaterally, clear to auscultation and percussion. No rales, rhonchi or wheezes noted. No increased work of breathing, no retractions or nasal flaring. Abdomen/GI: Soft, non-tender, with normal bowel sounds. No distension or tympany. No guarding or rebound. No evidence of tenderness throughout. Back: No spinal tenderness. No costovertebral tenderness. Full range of motion. Neuro: Awake and alert, GCS 15, oriented to person, place, time, and situation. Cranial nerves II-XII grossly intact. Motor strength 5/5 in all extremities. Sensory grossly intact. Cerebellar exam normal. Normal gait. Psych: Awake, alert, with orientation to person, place and time. Behavior, mood, and affect are within normal limits. 15:27 Skin: Wound consistent with insect bite without abscess or fluctuance right anterior distal thigh with approximately 5 inch diameter area of erythema no surrounding area.. Vital Signs: 15:28 BP 143 / 66; Pulse 102; Resp 17; Temp 98.8(O); Pulse Ox 99% on R/A; Weight 83.46 kg; ap3 Height 5 ft. 10 in. ; Pain 7/10; 16:30 BP 137 / 56; Pulse 87; Resp 16; Pulse Ox 100% ; bp 17:05 BP 132 / 62; Pulse 84; Resp 16; Pulse Ox 100% ; bp 15:28 Body Mass Index 26.40 (83.46 kg, 177.8 cm) ap3 15:28 Pain Scale: Adult ap3 MDM: 15:24 Medical Screening Exam initiated sp3 15:28 Data reviewed: vital signs, nurses notes, lab test result(s). ED course: 39-year-old sp3 female with wound consistent with insect bite and surrounding erythema/cellulitis. Clinically have ruled out abscess, necrosis, sepsis, shock or any other critical process. Will administer IV antibiotics and check routine labs. Disposition pending workup and patient course.. 17:01 ED course: Labs within normal limits. Patient has been on doxycycline which he only has sp3 2 doses left. Will switch to clindamycin and Bactrim p.o. Continue Bactroban which she already has. Patient is completed vancomycin and we will now discharge her home at this time.. 12/24 15:24 Order name: CBC with Diff; Complete Time: 15:59 sp3 12/24 15:24 Order name: CMP; Complete Time: 16:23 sp3 12/24 15:24 Order name: Blood Culture Adult (2) 3 12/24 15:24 Order name: IV Saline Lock; Complete Time: 15:45 3 12/24 15:24 Order name: Labs collected and sent; Complete Time: 15:45 sp3 Administered Medications: 15:45 Drug: vancoMYCIN IVPB 1 grams IVPB once over 2 hrs Route: IVPB; Infused Over: 2 hrs; bp Site: right forearm; 17:08 Follow up: IV Status: Completed infusion; IV Intake: 250ml bp Disposition Summary: 12/24/24 17:03 Discharge Ordered Notes: Location: Home sp3 Condition: Stable sp3 Diagnosis - Cellulitis, unspecified sp3 Followup: sp3 - With: Private Physician - When: Upon discharge from the Emergency Department - Reason: Continuance of care Discharge Instructions: - Discharge Summary Sheet sp3 - Cellulitis, Adult sp3 Forms: - Medication Reconciliation Form sp3 - Antibiotic Education sp3 - Prescription Opioid Use sp3 - Patient Portal Instructions sp3 - Leadership Thank You Letter sp3 Prescriptions: - Clindamycin HCl 300 mg Oral Capsule - take 1 capsule ORAL route every 6 hours for 10 days; 40 capsule; Refills: 0, sp3 Product Selection Permitted - Bactrim DS 800-160 mg Oral Tablet - take 1 tablet ORAL route every 12 hours for 7 days; 14 tablet; Refills: 0, sp3 Product Selection Permitted Signatures: Dispatcher [employer] EDAristides Freeman RN RN bp Enma Pat RN RN ap3 Selam Dhaliwal MD MD sp3 Corrections: (The following items were deleted from the chart) 15:25 15:25 CBC+H.LAB.BRZ ordered. EDMS EDMS 15:25 15:25 COMPREHENSIVE METABOLIC PANEL+C.LAB.BRZ ordered. EDMS EDMS 15:25 15:25 BLOOD CULTURE*+BA.LAB.BRZ ordered. EDMS EDMS
[2024-12-24 17:20] VITALS: TEMP 98.8
[2024-12-24 17:25] VITALS: O2SAT 100
[2024-12-24 17:36] VITALS: BP 132/62
== END 2024-12-24 17:11 | disposition home or self-care (01) ==
LOC: ER 15:15
DX: L03.115 Cellulitis of right lower limb (principal)
CPT/HCPCS: 96365; 87040 ×2; 85025; 36415; 80053; 99284; J3370; J7050